=== PATIENT | male | born 1955 | race Caucasian/White ===

== ENCOUNTER 2024-07-10 09:51 | Inpatient (IN) | payer MEDICARE ==
--- NOTE | 2024-07-10 10:26 | ED ---
General Adult HPI - General Chief complaint: Chest Pain Stated complaint: Chest pain Time Seen by Provider: 07/10/24 10:00 Source: patient, RN notes reviewed, old records reviewed Mode of arrival: wheelchair Limitations: no limitations - History of Present Illness Initial comments: This is a 69-year-old male who presents to the emergency department with a past medical history significant for cardiac stents high blood pressure high cholesterol and strong family history. Patient states on Saturday he was having chest pain and again on took a nitroglycerin and went away but he stated he woke up this morning continued to have chest pain he went to his neck was mildly short of breath and he determined it is time to come to the hospital. Patient states now the chest pain is still there but very slight. Patient denies any difficulty breathing currently patient denies diaphoretic. Patient denies nausea or vomiting. Patient [place] any recent fever chills or cough. Patient continues to smoke. - Related Data Home Medications Medication Instructions Recorded Confirmed Aspirin EC [Ecotrin Low Dose] 81 mg PO DAILY 07/10/24 07/10/24 Atorvastatin [Lipitor] 40 mg PO DAILY 07/10/24 07/10/24 Enalapril [Vasotec] 5 mg PO BID 07/10/24 07/10/24 Furosemide [Lasix] 40 mg PO DAILY 07/10/24 07/10/24 Isosorbide Mononitrate ER [Imdur] 30 mg PO DAILY 07/10/24 07/10/24 Metoprolol Tartrate [Lopressor] 25 mg PO BID 07/10/24 07/10/24 Spironolactone [Aldactone] 25 mg PO DAILY 07/10/24 07/10/24 allopurinoL [Zyloprim] 100 mg PO DAILY PRN 07/10/24 07/10/24 Allergies Allergy/AdvReac Type Severity Reaction Status Date / Time No Known Allergies Allergy Verified 07/10/24 11:00 Review of Systems ROS Statement: Those systems with pertinent positive or pertinent negative responses have been documented in the HPI. ROS Other: All systems not noted in ROS Statement are negative. Past Medical History Past Medical History: Chest Pain / Angina, Myocardial Infarction (OK) Past Surgical History: Heart Catheterization With Stent Smoking Status: Current every day smoker Past Alcohol Use History: Heavy Past Drug Use History: None Reported General Exam - General Exam Comments Initial Comments: GENERAL: Patient is well-developed and well-nourished. Patient is nontoxic and well- hydrated and is in mild distress. ENT: Neck is soft and supple. No significant lymphadenopathy is noted. Oropharynx is clear. Moist mucous membranes. Neck has full range of motion without eliciting any pain. EYES: The sclera were anicteric and conjunctiva were pink and moist. Extraocular movements were intact and pupils were equal round and reactive to light. Eyelids were unremarkable. PULMONARY: Unlabored respirations. Good breath sounds bilaterally. No audible rales rhonchi or wheezing was noted. CARDIOVASCULAR: There is a regular rate and rhythm without any murmurs gallops or rubs. ABDOMEN: Soft and nontender with normal bowel sounds. SKIN: Skin is clear with no lesions or rashes and otherwise unremarkable. NEUROLOGIC: Patient is alert and oriented x3. Cranial nerves II through XII are grossly intact. Motor and sensory are also intact. Normal speech, volume and content. Symmetrical smile. MUSCULOSKELETAL: Normal extremities with adequate strength and full range of motion. LYMPHATICS: No significant lymphadenopathy is noted PSYCHIATRIC: Normal psychiatric evaluation. Limitations: no limitations Course Vital Signs 07/10/24 07/10/24 09:53 10:55 Temperature 97.5 F L Pulse Rate 84 80 Respiratory 20 20 Rate Blood Pressure 112/67 104/61 O2 Sat by Pulse 97 96 Oximetry Medical Decision Making - Medical Decision Making EKG is interpreted by myself read EKG shows a sinus rhythm at 83 bpm SD interval is 296 QRS is 170 QT intervals 475 QTc is 515. Patient's EKG shows no obvious ST segment elevation Was pt. sent in by a medical professional or institution (EDWIN Koo, SAND CUTTING MACHINE OPERATOR, urgent care, hospital, or fpc...) When possible be specific @ -No Did you speak to anyone other than the patient for history (EMS, parent, family, police, friend...)? What history was obtained from this source @ -No Did you review nursing and triage notes (agree or disagree)? Why? @ -I reviewed and agree with nursing and triage notes Were old charts reviewed (outside hosp., previous admission, EMS record, old EKG, old radiological studies, urgent care reports/EKG's, fpc records)? Report findings @ -No old charts were reviewed Differential Diagnosis? @ -Differential Chest Pain: Stable Angina, Unstable Angina, STEMI, NSTEMI Aortic Dissection, Pneumothorax, Musculoskeletal, Esophageal Spasm GERD, Cholecystitis, Pancreatitis, Zoster, this is not meant to be an all-inclusive list. EKG interpreted by me (3pts min.). @ -As above X-rays interpreted by me (1pt min.). @ -Chest x-ray shows no acute abnormality CT interpreted by me (1pt min.). @ -None done U/S interpreted by me (1pt. min.). @ -None done What testing was considered but not performed or refused? (CT, X-rays, U/S, labs)? Why? @ -None What meds were considered but not given or refused? Why? @ -None Did you discuss the management of the patient with other professionals (professionals i.e. , PA, SAND CUTTING MACHINE OPERATOR, lab, RT, psych nurse, social service agency director, bead machine operator, teacher, community service officer, case management coordinator)? Give summary @ -I spoke with Dr. Gates and he came down and saw the patient will take the patient to catheterization lab. I spoke with [facility] hospitalist and admitted the patient. I will write admitting orders Was smoking cessation discussed for >3mins.? @ -Yes Was critical care preformed (if so, how long)? @ -35 minutes Were there social determinants of health that impacted care today? How? (Homelessness, low income, unemployed, alcoholism, drug addiction, transportation, low edu. Level, literacy, decrease access to med. care, long-term, rehab)? @ -No Was there de-escalation of care discussed even if they declined (Discuss DNR or withdrawal of care, Hospice)? DNR status @ -No What co-morbidities impacted this encounter? (DM, HTN, Smoking, COPD, CAD, Cancer, CVA, ARF, Chemo, Hep., AIDS, mental health diagnosis, sleep apnea, morbid obesity)? @ -None Was patient admitted / discharged? Hospital course, mention meds given and route, prescriptions, significant lab abnormalities, going to OR and other pertinent info. @ -Patient was given aspirin Nitropaste in the emergency department. Patient had no pain after being here about an hour. Patient's troponin came back 10 psych consulted cardiology cardiology came down and saw him and determined it was time to take this patient to the catheterization lab. Heparin was started with the patient. Undiagnosed new problem with uncertain prognosis? @ -No Drug Therapy requiring intensive monitoring for toxicity (Heparin, Nitro, Insulin, Cardizem)? @ -No Were any procedures done? @ -No Diagnosis/symptom? @ -NSTEMI Acute, or Chronic, or Acute on Chronic? @ -Acute Uncomplicated (without systemic symptoms) or Complicated (systemic symptoms)? @ -Complicated Side effects of treatment? @ -No Exacerbation, Progression, or Severe Exacerbation? @ -No Poses a threat to life or bodily function? How? (Chest pain, [place], OK, pneumonia, PE, COPD, DKA, ARF, appy, cholecystitis, CVA, Diverticulitis, Homicidal, Suicidal, threat to staff... and all critical care pts) @ -This could lead to an OK and endorgan dysfunction - Lab Data Result diagrams: 07/10/24 10:25 07/10/24 10:25 Lab Results 07/10/24 07/10/24 07/10/24 Range/Units 10:25 10:25 10:25 WBC 12.6 H (3.8-10.6) k/uL RBC 4.42 (4.30-5.90) m/uL Hgb 14.7 (13.0-17.5) gm/dL Hct 42.9 (39.0-53.0) % MCV 97.1 (80.0-100.0) fL MCH 33.2 (25.0-35.0) pg MCHC 34.1 (31.0-37.0) g/dL RDW 12.9 (11.5-15.5) % Plt Count 239 (150-450) k/uL MPV 8.4 Neutrophils % 78 % Lymphocytes % 13 % Monocytes % 7 % Eosinophils % 1 % Basophils % 0 % Neutrophils # 9.9 H (1.3-7.7) k/uL Lymphocytes # 1.7 (1.0-4.8) k/uL Monocytes # 0.8 (0-1.0) k/uL Eosinophils # 0.1 (0-0.7) k/uL Basophils # 0.0 (0-0.2) k/uL PT 10.7 (10.0-12.5) sec INR 1.0 (<1.2) APTT 22.5 (22.0-30.0) sec Sodium 137 (137-145) mmol/L Potassium 4.6 (3.5-5.1) mmol/L Chloride 100 (98-107) mmol/L Carbon Dioxide 28 (22-30) mmol/L Anion Gap 9 mmol/L BUN 14 (9-20) mg/dL Creatinine 0.82 (0.66-1.25) mg/dL Est GFR (CKD-EPI)AfAm >90 (>60 ml/min/1.73 sqM) Est GFR (CKD-EPI)NonAf 89 (>60 ml/min/1.73 sqM) Glucose 117 H (74-99) mg/dL Calcium 9.6 (8.4-10.2) mg/dL Magnesium 1.8 (1.6-2.3) mg/dL Total Bilirubin 1.2 (0.2-1.3) mg/dL AST 60 H (17-59) U/L ALT 34 (4-49) U/L Alkaline Phosphatase 131 H (38-126) U/L Troponin I (0.000-0.034) ng/mL Total Protein 7.1 (6.3-8.2) g/dL Albumin 4.4 (3.5-5.0) g/dL 07/10/24 Range/Units 10:25 WBC (3.8-10.6) k/uL RBC (4.30-5.90) m/uL Hgb (13.0-17.5) gm/dL Hct (39.0-53.0) % MCV (80.0-100.0) fL MCH (25.0-35.0) pg MCHC (31.0-37.0) g/dL RDW (11.5-15.5) % Plt Count (150-450) k/uL MPV Neutrophils % % Lymphocytes % % Monocytes % % Eosinophils % % Basophils % % Neutrophils # (1.3-7.7) k/uL Lymphocytes # (1.0-4.8) k/uL Monocytes # (0-1.0) k/uL Eosinophils # (0-0.7) k/uL Basophils # (0-0.2) k/uL PT (10.0-12.5) sec INR (<1.2) APTT (22.0-30.0) sec Sodium (137-145) mmol/L Potassium (3.5-5.1) mmol/L Chloride (98-107) mmol/L Carbon Dioxide (22-30) mmol/L Anion Gap mmol/L BUN (9-20) mg/dL Creatinine (0.66-1.25) mg/dL Est GFR (CKD-EPI)AfAm (>60 ml/min/1.73 sqM) Est GFR (CKD-EPI)NonAf (>60 ml/min/1.73 sqM) Glucose (74-99) mg/dL Calcium (8.4-10.2) mg/dL Magnesium (1.6-2.3) mg/dL Total Bilirubin (0.2-1.3) mg/dL AST (17-59) U/L ALT (4-49) U/L Alkaline Phosphatase (38-126) U/L Troponin I 10.500 H* (0.000-0.034) ng/mL Total Protein (6.3-8.2) g/dL Albumin (3.5-5.0) g/dL Critical Care Time Critical Care Time: Yes Total Critical Care Time: 35 Disposition Clinical Impression: Acute non-ST elevation myocardial infarction (NSTEMI) Disposition: ADMITTED IP TO THIS HOSP Referrals: Silvia Jacobs MD [Primary Care Provider] - 1-2 days Time of Disposition: 11:51
[2024-07-10] MEDS: NITROGLYCERIN OINT 1 INCH/GM PACKET TOPICAL STA (10:29)
[2024-07-10] MEDS: ASPIRIN 81 MG PO STA (10:29)
[2024-07-10 10:51] LABS: Basophils % (A) 0 %; Eosinophils # (A) 0.1 k/uL (0-0.7); Eosinophils % (A) 1 %; HCT 42.9 % (39.0-53.0); HGB 14.7 gm/dL (13.0-17.5); Lymphocytes # (A) 1.7 k/uL (1.0-4.8); Lymphocytes % (A) 13 %; MCH 33.2 pg (25.0-35.0); MCHC 34.1 g/dL (31.0-37.0); MCV 97.1 fL (80.0-100.0); Mean Platelet Volume 8.4; Monocytes # (A) 0.8 k/uL (0-1.0); Monocytes % (A) 7 %; Neutrophils # (A) 9.9 k/uL (1.3-7.7); Neutrophils % (A) 78 %; Platelet Count 239 k/uL (150-450); RBC 4.42 m/uL (4.30-5.90); RDW 12.9 % (11.5-15.5); WBC 12.6 k/uL (3.8-10.6)
--- NOTE | 2024-07-10 10:52 | XR ---
EXAMINATION TYPE: XR chest 2V DATE OF EXAM: 07/10/2024 10:35 AM COMPARISON: 07/16/2012 CLINICAL INDICATION: Male, 69 years old with history of Chest Pain, , TECHNIQUE: PA and lateral views FINDINGS: The heart is mild to moderately enlarged. Mild interstitial prominence. No consolidation of pleural e ffusion. IMPRESSION: [id number] cardiomegaly and possible mild pulmonary vascular congestion. Otherwise, no acute pr ocess seen. [facility], , 07/10/2024 10:49 AM
[2024-07-10 10:58] LABS: ALT 34 U/L (4-49); AST 60 U/L (17-59); African American GFR (CKD) >90 (>60 ml/min/1.73 sqM); Albumin 4.4 g/dL (3.5-5.0); Alkaline Phosphatase 131 U/L (38-126); Anion Gap 9 mmol/L; Blood Urea Nitrogen 14 mg/dL (9-20); Calcium 9.6 mg/dL (8.4-10.2); Carbon Dioxide 28 mmol/L (22-30); Chloride 100 mmol/L (98-107); Glucose 117 mg/dL (74-99); Magnesium 1.8 mg/dL (1.6-2.3); Non-African American GFR(CKD) 89 (>60 ml/min/1.73 sqM); Potassium 4.6 mmol/L (3.5-5.1); Sodium 137 mmol/L (137-145); Total Bilirubin 1.2 mg/dL (0.2-1.3); Total Protein 7.1 g/dL (6.3-8.2)
[2024-07-10 10:59] LABS: Partial Thromboplastin Time 22.5 sec (22.0-30.0); Prothrombin Time 10.7 sec (10.0-12.5)
[2024-07-10] MEDS: HEPARIN SODIUM 1,000 UN/ML (10ML VL) IV ONE (11:35)
[2024-07-10] MEDS: HEPARIN SOD,PORK IN 0.45% NACL 25,000 UNIT in 0.45% NACL 1 250ML.BAG IV SCH (11:36)
[2024-07-10] MEDS ORDERED: ALPRAZolam 0.25 MG TAB PO PRN (11:43)
[2024-07-10] MEDS ORDERED: NITROGLYCERIN SL TABS 0.4 MG TAB SUBLINGUAL PRN ×3 (11:43→13:42)
[2024-07-10] MEDS ORDERED: ALPRAZolam 0.5 MG TAB PO PRN (11:43)
[2024-07-10] MEDS: ASPIRIN 325 MG TAB PO STA (11:45)
[2024-07-10] MEDS: ATORVASTATIN 80 MG TAB PO STA (11:46)
--- NOTE | 2024-07-10 11:53 | P.CRDCN ---
History of Present Illness History of present illness: HISTORY OF PRESENTING ILLNESS This is a pleasant 69-year-old with past medical history significant for hypertension, hyperlipidemia, tobacco abuse, alcohol use, CAD with prior PCI. He follows in the office with Dr. Patel. He actually just followed with Dr. Patel in the office on Saturday and was feeling fairly well. He went home from the office visit and later that night started to have some chest discomfort. Originally he thought it may be gas related and felt more like a pressure. It came and went and then was able to go sleep however on had recurrence and he did take nitroglycerin with improvement. He had been feeling somewhat better yesterday however this morning had recurrence and therefore came to emergency department. A nitroglycerin patch was placed and currently he states his pressure is about a 0.5 which is similar to what he always has. He d enies any significant shortness breath, diaphoresis or lightheadedness. Denies any recent fevers or chills. He states his last heart catheterization and PCI was approximately 13 years ago and prior to that 5-10 years. He is still smoking and has not been able to quit. EKG showing normal sinus rhythm with Q waves V1 and V2, right bundle branch morphology with borderline J-point elevation the 3 with biphasic T waves V3 V4 and T-wave inversions inferiorly. Blood work shows hemoglobin 14.7, white blood cell count 12.6, creatinine 0.8, AST 60, ALT 34, troponin 10.5. He has chronic LE edema however denies any worsening. REVIEW OF SYSTEMS At the time of my exam: CONSTITUTIONAL: Denies fever or chills. CARDIOVASCULAR: + chest pain, +chronic shortness of breath, no orthopnea, PND or palpitations. RESPIRATORY: Denies cough. GASTROINTESTINAL: Denies abdominal pain, diarrhea, constipation, nausea or vomiting. MUSCULOSKELETAL: Denies myalgias. NEUROLOGIC: Denies numbness, tingling or weakness. ENDOCRINE: Denies fatigue, weight change, polydipsia or polyurina. GENITOURINARY: Denies burning, hematuria or urgency with micturation. HEMATOLOGIC: Denies history of anemia or bleeding. PHYSICAL EXAMINATION Vital signs reviewed. CONSTITUTIONAL: No apparent distress. HEENT: Head is normocephalic. Pupils are equal, round. Sclerae anicteric. Mucous membranes of the mouth are moist. No JVD. No carotid bruit. CHEST EXAMINATION: Lungs are clear to auscultation. No chest wall tenderness is noted on palpation or with deep breathing. HEART EXAMINATION: Regular rate and rhythm. S1, S2 heard. No murmurs, gallops or rub. ABDOMEN: Soft, nontender. Positive bowel sounds. EXTREMITIES: 2+ peripheral pulses, 2+ lower extremity edema and no calf tenderness. NEUROLOGIC EXAMINATION: Patient is awake, alert and oriented x3. ASSESSMENT Non-STEMI likely type I mechanism CAD with prior history PCI remotely, last approximately 2011 Hypertension Hyperlipidemia Tobacco abuse Alcohol use PLAN Patient with new onset of unstable angina symptoms over last 3 days and troponin significantly elevated. Discussed definitive evaluation with heart catheterization. Patient unclear on his chest pain and states predominantly back to his normal self and no major angina currently however urgent heart cat heterization. Aspirin, heparin drip. Check 2-D echo. Tobacco cessation recommended. Further recommendations to follow. Past Medical History Past Medical History: Chest Pain / Angina, Myocardial Infarction (DC) Past Surgical History: Heart Catheterization With Stent Smoking Status: Current every day smoker Past Alcohol Use History: Heavy Past Drug Use History: None Reported Medications and Allergies Home Medications Medication Instructions Recorded Confirmed Type Aspirin EC [Ecotrin Low Dose] 81 mg PO DAILY 07/10/24 07/10/24 History Atorvastatin [Lipitor] 40 mg PO DAILY 07/10/24 07/10/24 History Enalapril [Vasotec] 5 mg PO BID 07/10/24 07/10/24 History Furosemide [Lasix] 40 mg PO DAILY 07/10/24 07/10/24 History Isosorbide Mononitrate ER [Imdur] 30 mg PO DAILY 07/10/24 07/10/24 History Metoprolol Tartrate [Lopressor] 25 mg PO BID 07/10/24 07/10/24 History Spironolactone [Aldactone] 25 mg PO DAILY 07/10/24 07/10/24 History allopurinoL [Zyloprim] 100 mg PO DAILY PRN 07/10/24 07/10/24 History Allergies Allergy/AdvReac Type Severity Reaction Status Date / Time No Known Allergies Allergy Verified 07/10/24 11:00 Physical Exam Vitals: Vital Signs Temp Pulse Resp BP Pulse Ox 07/10/24 11:47 79 20 111/54 96 07/10/24 10:55 80 20 104/61 96 07/10/24 09:53 97.5 F L 84 20 112/67 97 Intake and Output 07/09/24 07/10/24 07/10/24 22:59 06:59 14:59 Other: Weight 124.738 kg Results 07/10/24 10:25 07/10/24 10:25 Cardiac Enzymes 07/10/24 07/10/24 Range/Units 10:25 10:25 AST 60 H (17-59) U/L Troponin I 10.500 H* (0.000-0.034) ng/mL Coagulation 07/10/24 Range/Units 10:25 PT 10.7 (10.0-12.5) sec APTT 22.5 (22.0-30.0) sec CBC 07/10/24 Range/Units 10:25 WBC 12.6 H (3.8-10.6) k/uL RBC 4.42 (4.30-5.90) m/uL Hgb 14.7 (13.0-17.5) gm/dL Hct 42.9 (39.0-53.0) % Plt Count 239 (150-450) k/uL Comprehensive Metabolic Panel 07/10/24 Range/Units 10:25 Sodium 137 (137-145) mmol/L Potassium 4.6 (3.5-5.1) mmol/L Chloride 100 (98-107) mmol/L Carbon Dioxide 28 (22-30) mmol/L BUN 14 (9-20) mg/dL Creatinine 0.82 (0.66-1.25) mg/dL Glucose 117 H (74-99) mg/dL Calcium 9.6 (8.4-10.2) mg/dL AST 60 H (17-59) U/L ALT 34 (4-49) U/L Alkaline Phosphatase 131 H (38-126) U/L Total Protein 7.1 (6.3-8.2) g/dL Albumin 4.4 (3.5-5.0) g/dL Current Medications Generic Name Dose Route Start Last Admin Trade Name Freq PRN Reason Stop Dose Admin Alprazolam 0.25 mg 07/10/24 11:43 Alprazolam 0.25 Mg Tab PO Q6HR PRN Mild Anxiety Alprazolam 0.5 mg 07/10/24 11:43 Alprazolam 0.5 Mg Tab PO Q6HR PRN Moderate Anxiety Heparin Sodium/Sodium Chloride 250 mls @ 10 mls/hr 07/10/24 11:30 07/10/24 11:36 25,000 unit/ Sodium Chloride IV 8.0168 units/kg/hr .Q24H FABY 10 mls/hr Administration Protocol 8.0168 UNITS/KG/HR Heparin Sodium (Porcine) 10, 1,001 mls @ 999 mls/hr 07/11/24 07:00 000 unit/ Sodium Chloride IRRIGATION 07/11/24 23:00 ONCE PRN INTRA-OP Heparin Sodium (Porcine) 2,500 250.5 mls @ 250 mls/hr 07/11/24 07:00 unit/ Sodium Chloride IRRIGATION 07/11/24 23:00 ONCE PRN INTRA-OP Nitroglycerin 0.4 mg 07/10/24 11:43 Nitroglycerin Sl Tabs 0.4 Mg Tab SUBLINGUAL Q5M PRN Chest Pain Intake and Output 07/09/24 07/10/24 07/10/24 22:59 06:59 14:59 Other: Weight 124.738 kg Patient Weight 07/11/24 06:59 Weight 124.738 kg 07/10/24 10:25 07/10/24 10:25
[2024-07-10] MEDS: fentaNYL (PF) 50 MCG/ML 2 ML AMP IVP ONE (12:20)
[2024-07-10] MEDS: MIDAZOLAM 2 MG/2 ML VIAL IVP ONE ×2 (12:20→13:15)
[2024-07-10] MEDS: VERAPAMIL SYRINGE (5 MG/10 ML) INTRAARTER ONE (12:21)
[2024-07-10] MEDS: LIDOCAINE 1% INJ 10MG/ML (20 ML MDV) SQ ONE (12:21)
[2024-07-10] MEDS: HEPARIN SODIUM,PORCINE 10,000 UNIT in SODIUM CHLORIDE 0.9% 1,000 ML IRRIGATION ONE (12:27)
[2024-07-10] MEDS: HEPARIN SODIUM,PORCINE (1 ML) 2,500 UNIT in SODIUM CHLORIDE 0.9% 250 ML IRRIGATION ONE (12:27)
[2024-07-10] MEDS: IV FLUID CONTINUATION 950 ML IV ONE (12:27)
[2024-07-10] MEDS: HEPARIN SODIUM 1,000 UN/ML (10ML VL) IVP ONE ×4 (12:46→13:35)
[2024-07-10] MEDS: PRASUGREL 10 MG TAB PO ONE (13:02)
[2024-07-10] MEDS: IOPAMIDOL-370 100ML BTL INJ ONE (13:35)
[2024-07-10] MEDS ORDERED: ATROPINE SULFATE 0.1 MG/ML 10ML SYRINGE IV PRN (13:42)
[2024-07-10] MEDS ORDERED: MAG HYDROX/AL HYDROX/SIMETH 30 ML CUP PO PRN (13:42)
[2024-07-10] MEDS ORDERED: RX INFO: IV CONTRAST WAS GIVEN 1 EACH MISC MISCELLANE PRN (13:42)
[2024-07-10] MEDS ORDERED: ZOLPIDEM 5 MG TAB PO PRN (13:42)
[2024-07-10] MEDS ORDERED: allopurinoL 100 MG TAB PO PRN (13:44)
--- NOTE | 2024-07-10 13:49 | P.CARDCATH ---
Date of Procedure: 07/10/24 Description of Procedure: PERCUTANEOUS TRANSLUMINAL CORONARY ANGIOPLASTY CLINICAL INFORMATION: The patient is a 69-year-old male with a known history of hypertension, hyperlipidemia, chronic tobacco use and a history of CAD who presented with evidence of acute myocardial infarction, he underwent coronary a ngiography by Dr. Patel and was found to have acutely occluded proximal LAD with chronically occluded right coronary artery and borderline left main disease as well as obstructive disease in the left circumflex. Recommendations were made regarding angioplasty and stenting. The procedure as well as the risks and the complications were discussed with the patient who was in full understanding and agreement. PROCEDURE: A 6 [place] EBU 3.75 guiding catheter was introduced into the system. After cannulating the left main, a 0.014 BMW J wire was advanced across the lesion with the help of a Corsair microcatheter and positioned distally. The microcatheter was removed. Following that a 2.5 x 12 mm trek balloon was advanced and inflated at 8 atmosphere. Following that a [facility] eye IVUS catheter was introduced and images were obtained. Following that a 4.0 x 18 mm Xience molly point stent was deployed. It was dilated at 16 ole. Repeat IVUS imaging was performed. After removing the catheter a 4.0 x 12 mm NC trek balloon was advanced and 2 inflations at 10 ole were done. After the last inflation, after appropriate wait, the balloon and the guidewire were withdrawn back into the guiding catheter. Images were obtained and repeated. Those images reveal stable successful stenting. At that point, the guiding catheter, the balloon, and guidewire were removed. The sheath was removed. Hemostasis was obtained with deployment of a TR band. There were no immediate complications. The patient was returned to the room in stable condition. Of note, the patient received 8500 units of heparin as well as Effient. His ACT was followed. There was no immediate complications. He had no chest discomfort or EKG changes with the inflations RESULTS: Successful stenting of the proximal LAD with reduction of stenosis from 100% to 0% with IVUS imaging and ASTRID-3 flow at the end. RECOMMENDATIONS: Patient will continue on aspirin and Effient for 1 year without any interruption in addition to aggressive coronary risks modification, maintaining LDL below 70 mg/dL. He will be referred to [place] quit line for smoking cessation. He will be further evaluated regarding the need to undergo revascularization in view of his left main, left circumflex and RCA disease either by percutaneous revascularization of CABG. The findings and recommendations were discussed with the patient and the family, they are in full understanding and agreement. Duration of sedation: 35 minutes
--- NOTE | 2024-07-10 17:30 | CA ---
Transthoracic Echo Report Name: Tang Pichardo Age: 69 Gender: M : 1955 Exam Date: 07/10/2024 15:08 Exam Location: [place] [facility] Ht (in): 69 Wt (lb): 275 Ordering Physician: Rhett Gates DO ([email or web address]) Attending/Referring Phys: Greens Laborer Huma Brenner RDCS Procedure CPT: Indications: re: LV function Cardiac Hx: Technical Quality: Very technically difficult study Contrast 1: Definity Total Dose (mL): 1 Contrast 2: Total Dose (mL): MEASUREMENTS (Male / Female) Normal Values 2D ECHO LVOT Diameter 2.6 cm Aortic Root Diameter 3.7 cm LV Diastolic Volume MOD BP 229.4 cm??? 67 - 155 / 56 - 104 cm??? LV Systolic Volume MOD BP 144.8 cm??? 22 - 58 / 19 - 49 cm??? LV Ejection Fraction MOD BP 36.9 % >= 55 % LV Cardiac Index MOD BP 2649.2 cm???/min???m??? LV Diastolic Volume MOD 4C 229.8 cm??? LV Systolic Volume MOD 4C 132.7 cm??? LV Ejection Fraction MOD 4C 42.2 % LV Cardiac Index MOD 4C 3041.0 cm???/min???m??? LV Diastolic Length 4C 10.3 cm LV Systolic Length 4C 9.1 cm LV Diastolic Volume MOD 2C 229.9 cm??? LV Systolic Volume MOD 2C 154.7 cm??? LV Ejection Fraction MOD 2C 32.7 % LV Cardiac Index MOD 2C 2354.0 cm???/min???m??? LV Diastolic Length 2C 10.2 cm LV Systolic Length 2C 9.3 cm M-MODE LV Diastolic Diameter MM 7.5 cm 4.2 - 5.9 / 3.9 - 5.3 cm LV Systolic Diameter MM 6.4 cm LV Cardiac Index MM Teich 2692.5 cm???/min???m??? IVS Diastolic Thickness MM 1.3 cm 0.6 - 1.0 / 0.6 - 0.9 cm LVPW Diastolic Thickness MM 1.8 cm 0.6 - 1.0 / 0.6 - 0.9 cm LV Relative Wall Thickness MM 0.4 0.24 - 0.42 / 0.22 - 0.42 LV Mass Index MM 247.8 g/m??? 49 - 115 / 43 - 95 g/m??? DOPPLER AV Peak Velocity 156.4 cm/s AV Peak Gradient 9.8 mmHg AV Mean Velocity 108.0 cm/s AV Mean Gradient 5.3 mmHg AV Velocity Time Integral 27.4 cm LVOT Peak Velocity 115.7 cm/s LVOT Peak Gradient 5.4 mmHg LVOT Velocity Time Integral 21.2 cm LVOT Stroke Volume 112.6 cm??? LVOT Stroke Volume Index 47.6 ml/m??? LVOT Cardiac Index 3528.0 cm???/min???m??? AV Area Cont Eq vti 4.1 cm??? AV Area Cont Eq pk 3.9 cm??? MV Peak Velocity 190.8 cm/s MV Peak Gradient 14.6 mmHg MV Mean Velocity 96.0 cm/s MV Mean Gradient 5.1 mmHg MV Velocity Time Integral 31.5 cm FINDINGS Left Ventricle Left ventricular ejection fraction is estimated at 30-35 %. Mild concentric LVH Moderately dilated LV cavity. Severely reduced LV systolic function globally. Apical hypokinesia. No evidence of apical thrombus in contrast imaging Right Ventricle Right ventricle not well visualized. Unable to estimate the right ventricular systolic pressure. Right Atrium Right atrium not well visualized. Left Atrium Mild left atrial dilatation. Mitral Valve Calcified and thickened posterior mitral leaflet with restricted motion. Mild mitral stenosis. Mild mitral regurgitation Aortic Valve Trileaflet aortic valve. No aortic stenosis. Trace aortic regurgitation. Tricuspid Valve Tricuspid valve not well visualized. No tricuspid stenosis. No tricuspid regurgitation. Pulmonic Valve Pulmonic valve not well visualized. Pericardium No pericardial effusion. Aorta Aortic annulus normal. CONCLUSIONS Technically difficult study with limited views LVEF 30% Moderately dilated LV cavity, severely reduced global LV systolic function Apical hypokinesia Calcified mitral valve with mild mitral stenosis mild mitral regurgitation Previewed by: Dr Jason Huerta (Electronically Signed) Final Date: 10 July 2024 17:29
[2024-07-10] MEDS: METOPROLOL TARTRATE 25 MG TAB PO SCH (20:43)
[2024-07-10] MEDS: lisinopriL 5 MG TAB PO SCH (20:43)
[2024-07-10] MEDS: ATORVASTATIN 80 MG TAB PO SCH (20:44)
[2024-07-10] MEDS: SODIUM CHLORIDE 0.9% 1,000 ML in EMPTY BAG 1 BAG IV SCH (20:44)
--- NOTE | 2024-07-10 21:00 | CC ---
CARDIAC CATHETERIZATION REPORT INDICATION: Acute non ST-segment elevation KS. PROCEDURE NOTE: After obtaining informed consent, left heart catheterization and coronary angiogram were performed via the right radial artery using standard Ramsey catheters. The patient tolerated the procedure well without any obvious immediate complications. The patient received moderate conscious sedation. Total sedation time was 20 minutes. Right radial artery access was obtained using Seldinger technique, 6-Egyptian sheath was placed. Catheters and wires were floated into the ascending aorta under fluoroscopic guidance. The patient received verapamil and heparin per protocol. The patient received heparin in the ER and was on heparin drip with additional heparin was given in the label cutter. FINDINGS: 1. Hemodynamics: Left ventricular end-diastolic pressure is 22 mm. There is no significant gradient across the aortic valve. 2. Left ventriculogram: Left ventriculogram is not performed. 3. Angiographic data: a.Right coronary artery: Right coronary artery was previously stented, appears subtotally occluded in its midportion with [id number] and [id number] collaterals. b.Left main coronary artery appears calcified. There is 30% to 40% left main stenosis. It divides into left anterior descending coronary artery and circumflex coronary artery. LAD was previously stented and just past, the stent appears occluded. This seems to be the acute occlusion. Circumflex coronary artery bifurcates into AV groove circ and OM has a 70% stenosis. CONCLUSIONS: Three-vessel coronary artery disease with a chronically occluded right coronary artery, what appears like an acute occlusion distal to the stent of the LAD and chronic 70% to 80% stenosis involving circumflex coronary artery. PLAN: Angiographic data was reviewed by Dr. Torres. We will attempt angioplasty of the LAD and this goes well. We will bring him back and fix his circumflex coronary artery. I explained these issues at length with the patient. He understands and underwent with the plan. MMODL / IJN: [id number] /
[2024-07-10 22:01] LABS: LDL Cholesterol,Calculated 75.8 mg/dL (0.0-131.0); VLDL Calculation 14.26 mg/dL (5.00-40.00)
[2024-07-11] MEDS ORDERED: HEPARIN SODIUM,PORCINE 10,000 UNIT in SODIUM CHLORIDE 0.9% 1,000 ML IRRIGATION PRN (07:00)
[2024-07-11] MEDS ORDERED: HEPARIN SODIUM,PORCINE (1 ML) 2,500 UNIT in SODIUM CHLORIDE 0.9% 250 ML IRRIGATION PRN (07:00)
[2024-07-11 07:01] LABS: HCT 42.1 % (39.0-53.0); HGB 14.1 gm/dL (13.0-17.5); MCH 32.7 pg (25.0-35.0); MCHC 33.5 g/dL (31.0-37.0); MCV 97.6 fL (80.0-100.0); Mean Platelet Volume 8.3; Platelet Count 236 k/uL (150-450); RBC 4.31 m/uL (4.30-5.90); RDW 12.9 % (11.5-15.5); WBC 10.4 k/uL (3.8-10.6)
[2024-07-11 07:15] LABS: ALT 30 U/L (4-49); AST 54 U/L (17-59); African American GFR (CKD) >90 (>60 ml/min/1.73 sqM); Albumin 4.1 g/dL (3.5-5.0); Alkaline Phosphatase 119 U/L (38-126); Anion Gap 10 mmol/L; Blood Urea Nitrogen 11 mg/dL (9-20); Calcium 9.2 mg/dL (8.4-10.2); Carbon Dioxide 24 mmol/L (22-30); Chloride 103 mmol/L (98-107); Glucose 103 mg/dL (74-99); Non-African American GFR(CKD) >90 (>60 ml/min/1.73 sqM); Potassium 4.6 mmol/L (3.5-5.1); Sodium 137 mmol/L (137-145); Total Bilirubin 1.2 mg/dL (0.2-1.3); Total Protein 6.7 g/dL (6.3-8.2)
[2024-07-11] MEDS ORDERED: ASPIRIN 325 MG TAB PO SCH (09:00)
--- NOTE | 2024-07-11 09:07 | US ---
EXAMINATION TYPE: Pre-Operative Non-Invasive Evaluation of the hand for Potential Radial Artery Sapphire padgett, Measurements only DATE OF EXAM: 07/11/2024 7:26 AM CLINICAL INDICATION: Male, 69 years old with history of preop CABG;measurements only; preop, Preop- [facility] TECHNIQUE:Grayscale and color Doppler imaging of the radial artery(s) SIDE PERFORMED: left FINDINGS: Dominant hand: right Duplex Findings: Radial Artery: Color flow seen Measurements in mm, transverse view: Left Radial: mm Proximal: 4.5 x 4.4 mm, could not get true prox due to the IV Mid: 4.6 x 3.4 mm Distal: 3.4 x 3.1 mm IMPRESSION: 1. No evidence for vascular occlusion. 2. Measurements as described above. [facility], , 07/11/2024 9:05 AM
--- NOTE | 2024-07-11 09:08 | US ---
EXAMINATION TYPE: US vein mapping BILAT DATE OF EXAM: 07/11/2024 7:26 AM COMPARISON: NONE CLINICAL INDICATION: Male, 69 years old with history of preop CABG; preop, Preop- Cardiac Surgery TECHNIQUE: Grayscale and color Doppler imaging of the lower extremity venous system. SIDE PERFORMED: Bilateral FINDINGS: DUPLEX FINDINGS: Greater Saphenous: Color flow seen Measurements in mm: Right Greater Saphenous: Groin: 5.9 x 5.2mm High Thigh: 7.0 x 5.9 mm Mid Thigh: 5.1 x 4.4 mm Above Knee: 4.6 x 3.7 mm Knee: 4.3 x 3.4 mm Below Knee: 3.1 x 2.1 mm Mid Calf: 2.7 x 2.0 mm At Ankle: 2.3 x 1.8 mm Left Greater Saphenous: Groin: 8.0 x 5.6 mm High Thigh: 7.4 x 5.3 mm Mid Thigh: 7.8 x 6.7 mm Above Knee: 6.9 x 3.9 mm Knee: 4.2 x 4.5 mm Below Knee: 4.4 x 3.3 mm Mid Calf: 4.6 x 3.2 mm At Ankle: 4.7 x 3.7 mm IMPRESSION: 1. No evidence for occlusion. 2. GSV measurements listed above. 3. Performing surgeon to determine viability as conduit. [facility], , 07/11/2024 9:05 AM
[2024-07-11 09:29] LABS: T4, Free (Free Thyroxine) 0.97 ng/dL (0.78-2.19)
[2024-07-11] MEDS: SPIRONOLACTONE 25 MG TAB PO SCH (09:41)
[2024-07-11] MEDS: PRASUGREL 10 MG TAB PO SCH (09:41)
[2024-07-11] MEDS: ASPIRIN 81 MG PO SCH (09:41)
--- NOTE | 2024-07-11 10:27 | P.GSCN ---
History of Present Illness Consult date: 07/11/24 Reason for Consult: Triple-vessel coronary artery disease, residual left main disease Requesting physician: Rhett Gates History of present illness: This is a 69-year-old gentleman who follows outpatient with Dr. Jacobs for primary care and Dr. Patel for cardiology. He has a previous medical history of coronary artery disease with previous PCI, hypertension, hyperlipidemia, chronic heavy tobacco dependence, chronic EtOH use, and morbid obesity. Apparently he was seen by Dr. Patel on Saturday and was doing well. That night at home he started to have chest discomfort intermittently. He was able to sleep that night, however on he continued to have intermittent chest discomfort which was relieved with sublingual nitro. Unfortunately yesterday morning he continued to have recurrence of chest discomfort and reported to [facility] emergency room for evaluation and treatment. He denied any other symptomatology including no shortness of breath, diaphoresis, nausea, lightheadedness/dizziness. EKG in the emergency room demonstrated sinus rhythm with right bundle branch block and inverted T waves inferiorly. Chest x-ray demonstrated mild to moderate cardiomegaly and mild pulmonary vascular congestion. Lab work revealed WBC 12.6, hemoglobin 14.7, INR 1.0, creatinine 0.82, and first troponin was elevated at 10.5. He was ruled in for non-STEMI and recommended to undergo heart catheterization which was completed yesterday by Dr. Patel revealing acute occlusion of the LAD just past the previous stent, OM branch of the circumflex coronary artery with 70% stenosis, chronic total occlusion in the mid RCA with left to right and right to right collaterals, and left main stenosis 30 to 40%. Due to this acute finding a stent was placed to the proximal LAD by Dr. Torres with reduction of stenosis from 100% to 0%. Due to triple-vessel coronary artery disease and residual left main disease consultation was placed to cardiothoracic surgery for recommendations regarding surgical revascularization versus further PCI. Of note transthoracic echocardiogram was completed revealing reduced left ventricular systolic function with EF 30 to 35%, mild concentric LVH, mild mitral and trace aortic regurgitation. Review of Systems Review of systems was completed and was negative except as noted - Cardiovascular Reports as per HPI, Reports chest pain Past Medical History Past Medical History: Coronary Artery Disease (CAD), Chest Pain / Angina, Hyperlipidemia, Hypertension, Myocardial Infarction ([place]) Last Myocardial Infarction Date:: 07/10/2024 History of Any Multi-Drug Resistant Organisms: None Reported Past Surgical History: Heart Catheterization With Stent Date of Last Stent Placement:: 07/10/2024 Past Psychological History: No Psychological Hx Reported Smoking Status: Current every day smoker Past Alcohol Use History: Heavy Past Drug Use History: None Reported Medications and Allergies Home Medications Medication Instructions Recorded Confirmed Type Aspirin EC [Ecotrin Low Dose] 81 mg PO DAILY 07/10/24 07/10/24 History Atorvastatin [Lipitor] 40 mg PO DAILY 07/10/24 07/10/24 History Enalapril [Vasotec] 5 mg PO BID 07/10/24 07/10/24 History Furosemide [Lasix] 40 mg PO DAILY 07/10/24 07/10/24 History Isosorbide Mononitrate ER [Imdur] 30 mg PO DAILY 07/10/24 07/10/24 History Metoprolol Tartrate [Lopressor] 25 mg PO BID 07/10/24 07/10/24 History Spironolactone [Aldactone] 25 mg PO DAILY 07/10/24 07/10/24 History allopurinoL [Zyloprim] 100 mg PO DAILY PRN 07/10/24 07/10/24 History Allergies Allergy/AdvReac Type Severity Reaction Status Date / Time No Known Allergies Allergy Verified 07/10/24 11:00 Surgical - Exam Vital Signs Temp Pulse Resp BP Pulse Ox 97.5 F L 84 20 112/67 97 07/10/24 09:53 07/10/24 09:53 07/10/24 09:53 07/10/24 09:53 07/10/24 09:53 CONSTITUTIONAL: Awake and alert, appears comfortable, cooperative, well- developed, well-nourished, no pain, no acute distress EYES: Pupils equal, round, reactive to light, normal ocular movement ENT: Moist mucous membranes without oral lesions present NECK: No masses, no bruits, trachea midline RESPIRATORY: Lungs sounds diminished in the bases bilaterally. Respirations even, nonlabored. Currently on room air with oxygen saturation 95%. Strong cough. No chest wall deformities. No clubbing or cyanosis present CARDIOVASCULAR: S1, S2 present. Regular rate and rhythm, sinus rhythm on telemetry. Palpable peripheral pulses bilaterally. Bilateral lower extremity edema present. No calf pain or tenderness noted GASTROINTESTINAL: Abdomen soft, nontender, nondistended without masses or organomegaly noted. There is no rebound or guarding present. Active bowel sounds present 4 quadrants. GENITOURINARY: Deferred INTEGUMENTARY: Skin is warm and dry NEUROLOGIC: Cranial nerves II through XII intact, normal coordination, no obvious motor or sensory deficits, speech is normal MUSKULOSKELETAL: Able to move all extremities, strength equal bilaterally, normal posture PSYCHIATRIC: Alert and oriented to person place and time, appropriate affect, intact judgment and insight CLINICAL FRAILTY SCORE 3 Results - Labs 07/11/24 05:15 07/11/24 05:15 Abnormal Lab Results - Last 24 Hours (Table) 07/10/24 07/10/24 07/10/24 Range/Units 10: 10: 10: WBC 12.6 H (3.8-10.6) k/uL Neutrophils # 9.9 H (1.3-7.7) k/uL Glucose 117 H (74-99) mg/dL AST 60 H (17-59) U/L Alkaline Phosphatase 131 H (38-126) U/L Troponin I 10.500 H* (0.000-0.034) ng/mL TSH (0.465-4.680) mIU/L 07/10/24 07/10/24 07/11/24 Range/Units 14:50 18:09 05:15 WBC (3.8-10.6) k/uL Neutrophils # (1.3-7.7) k/uL Glucose 103 H (74-99) mg/dL AST (17-59) U/L Alkaline Phosphatase (38-126) U/L Troponin I 14.100 H* 19.800 H* (0.000-0.034) ng/mL TSH 5.390 H (0.465-4.680) mIU/L Diabetes panel 07/10/24 07/10/24 07/11/24 Range/Units 10:25 14:50 05:15 Sodium 137 (137-145) mmol/L Potassium 4.6 (3.5-5.1) mmol/L Chloride 100 (98-107) mmol/L Carbon Dioxide 28 (22-30) mmol/L BUN 14 (9-20) mg/dL Creatinine 0.82 (0.66-1.25) mg/dL Glucose 117 H (74-99) mg/dL Hemoglobin A1c 5.7 (<=6.0) % Calcium 9.6 (8.4-10.2) mg/dL AST 60 H (17-59) U/L ALT 34 (4-49) U/L Alkaline Phosphatase 131 H (38-126) U/L Total Protein 7.1 (6.3-8.2) g/dL Albumin 4.4 (3.5-5.0) g/dL Triglycerides 71.30 (0.00-149.00) mg/dL HDL Cholesterol 42.90 (40.00-60.00) mg/dL 07/11/24 Range/Units 05:15 Sodium 137 (137-145) mmol/L Potassium 4.6 (3.5-5.1) mmol/L Chloride 103 (98-107) mmol/L Carbon Dioxide 24 (22-30) mmol/L BUN 11 (9-20) mg/dL Creatinine 0.68 (0.66-1.25) mg/dL Glucose 103 H (74-99) mg/dL Hemoglobin A1c (<=6.0) % Calcium 9.2 (8.4-10.2) mg/dL AST 54 (17-59) U/L ALT 30 (4-49) U/L Alkaline Phosphatase 119 (38-126) U/L Total Protein 6.7 (6.3-8.2) g/dL Albumin 4.1 (3.5-5.0) g/dL Triglycerides (0.00-149.00) mg/dL HDL Cholesterol (40.00-60.00) mg/dL Thyroid panel 07/11/24 Range/Units 05:15 TSH 5.390 H (0.465-4.680) mIU/L Calcium panel 07/10/24 07/11/24 Range/Units 10:25 05:15 Calcium 9.6 9.2 (8.4-10.2) mg/dL Albumin 4.4 4.1 (3.5-5.0) g/dL Pituitary panel 07/10/24 07/11/24 Range/Units 10:25 05:15 Sodium 137 137 (137-145) mmol/L Potassium 4.6 4.6 (3.5-5.1) mmol/L Chloride 100 103 (98-107) mmol/L Carbon Dioxide 28 24 (22-30) mmol/L BUN 14 11 (9-20) mg/dL Creatinine 0.82 0.68 (0.66-1.25) mg/dL Glucose 117 H 103 H (74-99) mg/dL Calcium 9.6 9.2 (8.4-10.2) mg/dL TSH 5.390 H (0.465-4.680) mIU/L Adrenal panel 07/10/24 07/11/24 Range/Units 10:25 05:15 Sodium 137 137 (137-145) mmol/L Potassium 4.6 4.6 (3.5-5.1) mmol/L Chloride 100 103 (98-107) mmol/L Carbon Dioxide 28 24 (22-30) mmol/L BUN 14 11 (9-20) mg/dL Creatinine 0.82 0.68 (0.66-1.25) mg/dL Glucose 117 H 103 H (74-99) mg/dL Calcium 9.6 9.2 (8.4-10.2) mg/dL Total Bilirubin 1.2 1.2 (0.2-1.3) mg/dL AST 60 H 54 (17-59) U/L ALT 34 30 (4-49) U/L Alkaline Phosphatase 131 H 119 (38-126) U/L Total Protein 7.1 6.7 (6.3-8.2) g/dL Albumin 4.4 4.1 (3.5-5.0) g/dL - Imaging Chest x-ray: report reviewed, image reviewed CT scan - chest: image reviewed EKG: image reviewed Additional studies: Heart catheterization films reviewed with Dr. Jack Assessment and Plan Assessment: Coronary artery disease, non-STEMI this admission Cardiomyopathy, EF 30 to 35% History of coronary artery disease with previous PCI to the LAD and RCA Hypertension Hyperlipidemia, treated, cholesterol 133, LDL 76 Chronic heavy tobacco dependence Chronic EtOH use Morbid obesity Plan: The patient was seen and examined at the bedside yesterday with family present, and again this morning sitting up in a recliner on the cardiac stepdown unit in no acute distress. Patient currently denies any chest pain/discomfort/pressure, denies any shortness of breath or any other symptomatology. The usual perioperative course of open-heart surgery was discussed in detail with the patient and his family, risks and benefits were reviewed, all questions were answered. Heart catheterization films were reviewed with Dr. Jack from cardiothoracic surgery who will see the patient and discuss our recommendations. Continue to maximize medical therapy with aspirin, Effient, statin, beta- lawrence, IRWIN inhibitor, Aldactone. Patient was counseled regarding complete smoking cessation. Increase activity as tolerated. Medical management of other comorbidities per internal medicine, cardiology. More recommendations to follow. Thank you Dr. Gates for this consult. We will continue to follow along with you and make further recommendations as appropriate. I have personally seen and examined the patient, performed the documentation and the assessment and plan as written. Number of minutes spent on the visit: 30. ION Cast
--- NOTE | 2024-07-11 10:56 | CT ---
EXAMINATION TYPE: CT chest wo con DATE OF EXAM: 07/11/2024 8:55 AM COMPARISON: None. CLINICAL INDICATION: Male, 69 years old with history of eval aorta for clamp ability, PRE OP CHEST PA IN TECHNIQUE: Axial images were obtained at 5 mm thick sections. Reconstructed images are reviewed on [employer] computer in the coronal plane. Contrast used: mL of , (none if empty) Oral contrast used: (none if empty) CT DLP: 758.3 mGycm, Automated exposure control for dose reduction was used. FINDINGS: Portion of the thyroid visualized is normal. There is a 0.8 cm low density nodule peripheral anterior lateral right apex. Series 205 image 13. There is a 1.2 cm in the pretracheal space. No enlarged lymph nodes in the retrocrural region measuri ng 1.8 cm. Normal less than 0.5 cm. The ascending aorta diameter at the level of the main pulmonary artery is 3.6 cm. The main pulmonary artery diameter at the bifurcation is 3.3 cm. Coronary artery c alcifications present. Limited CT sections are obtained through the upper abdomen. Hepatomegaly is not excluded IMPRESSION: 1. Small nodule anterior lateral right apex. Follow-up study in 6 months recommended. 2. Enlarged lymphadenopathy pretracheal space and subcarinal region. 3. Vascular calcification is within the ascending and descending thoracic aorta and aortic arch. [facility], , 07/11/2024 10:53 AM
[2024-07-11 11:22] VITALS: BMI 40.6
[2024-07-11] MEDS: DAPAGLIFLOZIN PROPANEDIOL 10 MG TABLET PO SCH (12:41)
--- NOTE | 2024-07-11 13:37 | P.HPIM ---
History of Present Illness H&P Date: 07/11/24 Chief Complaint: Chest pain Patient is a 69 year old male with past medical history of myocardial infarction with stent placement, extensive family history of coronary artery disease who presented to the ED with chest pain. Patient mentions On Saturday he first experienced left-sided chest pain with radiation to the left jaw and pain was a 5/10 severity. He initially thought that this was due to gas. He noticed an improvement in his pain on . On Saturday, he had a recurrence of the pain, which is when he took Nitroglycerin and that helped with his symptoms. This prompted him to present to the ER for an evaluation. He states having similar pain in the past and has undergone PCI twice, in 2012 and 5-10 year prior to that. He also has an extensive family history of coronary artery disease. He is still smoking everyday and is also drinking alcohol everyday. Denies fever, chills, shortness of breath, cough, palpitations, abdominal pain, nausea, vomiting, hematuria, dysuria, hematochezia, melena, headache, slurred speech, numbness, tingling, dizziness, lightheadedness. ED documentation reviewed. In the ED patient was treated with aspirin 324 mg, heparin drip, nitroglycerin ointment. Vitals on admission T 97.5 F, OR 84 bpm, RR 20, BP 112/67, oxygen saturation 97% on room air EKG independently interpreted as sinus rhythm, with T wave inversions in leads II, 3, aVF, V36, right bundle branch block, rate 74 bpm, QTc 488 ms Chest x-ray shows mild to moderate cardiomegaly and possible mild pulmonary vascular congestion, no acute process seen Labs on admission show WBC 12.6, INR 1.0, sodium 137, creatinine 0.82, AST 16, ALP 131, TSH 5.39, T4 0.97 Troponin I 10.5, 14.1, 19.8 Lipid panel shows triglycerides 71.3, cholesterol 133, LDL 75.8, VLDL 14.26, HDL 42.9 Lower extremity ultrasound shows no evidence for occlusion Upper extremity ultrasound shows no evidence of vascular occlusion Chest CT shows small nodule anterior lateral right apex, enlarged lymphadenopathy pretracheal space and subcarinal region, vascular calcification is within the ascending and descending thoracic aorta and aortic arch Review of systems: Pertinent positives and negatives as discussed in HPI, a complete review of systems was performed and all other systems are negative. Social history: Tobacco: Current everyday smoker Alcohol: Daily Recreational drugs: Denies use Travel: No recent travel history Sick contacts: None Physical examination: Vital signs reviewed General: nontoxic, no distress, appears at stated age Derm: warm, dry, intact Head: atraumatic, normocephalic, symmetric Eyes: EOMI, anicteric sclera Mouth: no lip lesion, mucus membranes moist Cardiovascular: S1 S2 reg, no murmur Lungs: CTA bilateral, no rhonchi, no rales, no accessory muscle use Abdominal: soft, non-tender to palpation Extremities: venous stasis dermatitis, 2+ edema b/l LE Neuro: Alert, Oriented, Gross neurological examination did not reveal any focal deficits. Psych: well appearing, appropriate affect Assessment/Plan: Patient is a 69 year old male with past medical history of myocardial infarction with stent placement, extensive family history of coronary artery disease who presented to the ED with chest pain. He underwent cardiac catheterization and stenting of the proximal LAD. He was found to have triple vessel disease and residual left main disease, cardiothoracic surgery was consulted. Active: #. NSTEMI, likely type I, S/p stenting to the proximal LAD 07/10/24 #. CAD with prior PCI #. Congestive heart failure, EF 30%( 07/10/24) Echocardiogram on 03/10/2025 shows EF 30 to 35%, moderately dilated LV cavity, severely reduced global LV systolic function, apical hypokinesia, calcified mitral valve with mild MS, mild MR Chest CT shows small nodule anterior lateral right apex, enlarged lymphadenopathy pretracheal space and subcarinal region, vascular calcification is within the ascending and descending thoracic aorta and aortic arch Continue prasugrel 10 mg p.o. daily, aspirin 80 mg p.o. daily, atorvastatin 80 mg p.o. at bedtime, metoprolol 25 mg p.o. twice daily, dapagliflozin 10 mg p.o. daily, lisinopril 5 mg p.o. twice daily, Continue telemetry monitoring Cardiology following, Aspirin and Effient for 12 months and maintain LDL <70, refer to [place] quit line for smoking cessation Cardiothoracic surgery following #. Sick euthyroid TSH 5.39, T4 0.97 Repeat labs on outpatient basis Chronic: #. Hypertension #. Hyperlipidemia #. Gout #. Nicotine dependence #. Alcohol use Continue allopurinol 100 mg p.o. daily as needed, spironolactone 25 mg p.o. daily F: None E: Replete as required N: Heart healthy diet DVT prophylaxis: Heparin GI prophylaxis: Pantoprazole 40 mg PO daily The patient is admitted with an anticipated more than 2 midnight stay for evaluation of chest pain CODE STATUS: FULL CODE Discussed with: Patient Anticipated discharge place: Home Past Medical History Past Medical History: Chest Pain / Angina, Myocardial Infarction ([place]) Last Myocardial Infarction Date:: 07/10/2024 History of Any Multi-Drug Resistant Organisms: None Reported Past Surgical History: Heart Catheterization With Stent Date of Last Stent Placement:: 07/10/2024 Smoking Status: Current every day smoker Past Alcohol Use History: Heavy Past Drug Use History: None Reported Medications and Allergies Home Medications Medication Instructions Recorded Confirmed Type Aspirin EC [Ecotrin Low Dose] 81 mg PO DAILY 07/10/24 07/10/24 History Atorvastatin [Lipitor] 40 mg PO DAILY 07/10/24 07/10/24 History Enalapril [Vasotec] 5 mg PO BID 07/10/24 07/10/24 History Furosemide [Lasix] 40 mg PO DAILY 07/10/24 07/10/24 History Isosorbide Mononitrate ER [Imdur] 30 mg PO DAILY 07/10/24 07/10/24 History Metoprolol Tartrate [Lopressor] 25 mg PO BID 07/10/24 07/10/24 History Spironolactone [Aldactone] 25 mg PO DAILY 07/10/24 07/10/24 History allopurinoL [Zyloprim] 100 mg PO DAILY PRN 07/10/24 07/10/24 History Allergies Allergy/AdvReac Type Severity Reaction Status Date / Time No Known Allergies Allergy Verified 07/10/24 11:00 Physical Exam Vitals: Vital Signs Temp Pulse Pulse Pulse Resp BP BP 07/11/24 04:41 98.1 F 78 17 103/57 07/10/24 23:30 72 16 115/66 07/10/24 20:39 97.7 F 85 17 108/68 07/10/24 17:18 86 16 101/59 07/10/24 15:18 16 133/73 07/10/24 14:48 71 16 116/66 07/10/24 14:12 78 16 126/67 07/10/24 13:57 64 16 140/70 07/10/24 11:47 79 20 111/54 07/10/24 10:55 80 20 104/61 07/10/24 09:53 97.5 F L 84 20 112/67 Pulse Ox 07/11/24 04:41 94 L 07/10/24 23:30 96 07/10/24 20:39 98 07/10/24 17:18 97 07/10/24 15:18 95 07/10/24 14:48 97 07/10/24 14:12 96 07/10/24 13:57 96 07/10/24 11:47 96 07/10/24 10:55 96 07/10/24 09:53 97 Intake and Output 07/10/24 07/11/24 07/11/24 22:59 06:59 14:59 Output Total 2 1 Balance -2 -1 Output: Urine 2 1 Other: Voiding Method Toilet Toilet Weight 124.738 kg Results CBC & Chem 7: 07/11/24 05:15 07/11/24 05:15 Labs: Abnormal Lab Results - Last 24 Hours (Table) 07/10/24 07/10/24 07/10/24 Range/Units 10:25 10:25 10:25 WBC 12.6 H (3.8-10.6) k/uL Neutrophils # 9.9 H (1.3-7.7) k/uL Glucose 117 H (74-99) mg/dL AST 60 H (17-59) U/L Alkaline Phosphatase 131 H (38-126) U/L Troponin I 10.500 H* (0.000-0.034) ng/mL TSH (0.465-4.680) mIU/L 07/10/24 07/10/24 07/11/24 Range/Units 14:50 18:09 05:15 WBC (3.8-10.6) k/uL Neutrophils # (1.3-7.7) k/uL Glucose 103 H (74-99) mg/dL AST (17-59) U/L Alkaline Phosphatase (38-126) U/L Troponin I 14.100 H* 19.800 H* (0.000-0.034) ng/mL TSH 5.390 H (0.465-4.680) mIU/L
--- NOTE | 2024-07-11 15:20 | P.PN ---
Subjective Progress Note Date: 07/11/24 HISTORY OF PRESENTING ILLNESS This is a pleasant 69-year-old with past medical history significant for hyp ertension, hyperlipidemia, tobacco abuse, alcohol use, CAD with prior PCI. He follows in the office with Dr. Patel. He actually just followed with Dr. Patel in the office on Saturday and was feeling fairly well. He went home from the office visit and later that night started to have some chest discomfort. Originally he thought it may be gas related and felt more like a pressure. It came and went and then was able to go sleep however on had recurrence and he did take nitroglycerin with improvement. He had been feeling somewhat better yesterday however this morning had recurrence and therefore came to emergency department. A nitroglycerin patch was placed and currently he states his pressure is about a 0.5 which is similar to what he always has. He denies any significant shortness breath, diaphoresis or lightheadedness. Denies any recent fevers or chills. He states his last heart catheterization and PCI was approximately 13 years ago and prior to that 5-10 years. He is still smoking and has not been able to quit. EKG showing normal sinus rhythm with Q waves V1 and V2, right bundle branch morphology with borderline J-point elevation the 3 with biphasic T waves V3 V4 and T-wave inversions inferiorly. Blood work shows hemoglobin 14.7, white blood cell count 12.6, creatinine 0.8, AST 60, ALT 34, troponin 10.5. He has chronic LE edema however denies any worsening. Left heart cath 07/10/2024 showed left main 30-40% stenosis, LAD stent occlusion, OM 70% stenosis, he underwent PCI of the LAD and was referred for CABG eval. Echocardiogram shows EF 30-35%, mild mitral stenosis. 07/11/24 Patient denies any chest pain or shortness of breath. He is feeling better and back to his baseline. He wants to go home. LDL 75. He did have 16 beat run of VT on telemetry. PHYSICAL EXAMINATION Vital signs reviewed. CONSTITUTIONAL: No apparent distress. HEENT: Head is normocephalic. Pupils are equal, round. Sclerae anicteric. Mucous membranes of the mouth are moist. No JVD. No carotid bruit. CHEST EXAMINATION: Lungs are clear to auscultation. No chest wall tenderness is noted on palpation or with deep breathing. HEART EXAMINATION: Regular rate and rhythm. S1, S2 heard. No murmurs, gallops or rub. ABDOMEN: Soft, nontender. Positive bowel sounds. EXTREMITIES: 2+ peripheral pulses, 2+ lower extremity edema and no calf tenderness. Right radial site with no redness swelling or drainage. NEUROLOGIC EXAMINATION: Patient is awake, alert and oriented x3. ASSESSMENT Non-STEMI likely type I mechanism CAD with prior history PCI remotely, last approximately 2011; s/p PCI LAD Hypertension Hyperlipidemia Tobacco abuse Alcohol use PLAN He has been referred to cardiothoracic surgery for CABG eval and workup is in process. Recommends LifeVest and patient is agreeable to this. Will monitor overnight. Consider adding Jardiance. He will complete workup as an outpatient. Continue with dual antiplatelet therapy. Continue high intensity statin. Further recommendations pending clinical course. Objective - Vital Signs Vital signs: Vital Signs Temp 98.1 F 07/11/24 04:41 Pulse 78 07/11/24 04:41 Resp 17 07/11/24 04:41 BP 103/57 07/11/24 04:41 Pulse Ox 94 L 07/11/24 04:41 FiO2 Intake & Output 07/10/24 07/11/24 07/11/24 18:59 06:59 18:59 Intake Total 150 Output Total 3 Balance 150 -3 Weight 124.738 kg Intake: IV 150 Output: Urine 3 Other: Voiding Method Toilet # Voids 1 - Labs CBC & Chem 7: 07/11/24 05:15 07/11/24 05:15 Labs: Abnormal Lab Results - Last 24 Hours (Table) 07/10/24 07/10/24 07/10/24 Range/Units 10:25 10:25 10:25 WBC 12.6 H (3.8-10.6) k/uL Neutrophils # 9.9 H (1.3-7.7) k/uL Glucose 117 H (74-99) mg/dL AST 60 H (17-59) U/L Alkaline Phosphatase 131 H (38-126) U/L Troponin I 10.500 H* (0.000-0.034) ng/mL TSH (0.465-4.680) mIU/L 07/10/24 07/10/24 07/11/24 Range/Units 14:50 18:09 05:15 WBC (3.8-10.6) k/uL Neutrophils # (1.3-7.7) k/uL Glucose 103 H (74-99) mg/dL AST (17-59) U/L Alkaline Phosphatase (38-126) U/L Troponin I 14.100 H* 19.800 H* (0.000-0.034) ng/mL TSH 5.390 H (0.465-4.680) mIU/L
[2024-07-11 15:47] LABS: Hepatitis A Antibody IgM Nonreactive (Nonreactive); Hepatitis B Core IgM Nonreactive (Nonreactive); Hepatitis B Surface Antigen Nonreactive (Nonreactive); Hepatitis C IgG Antibody Nonreactive (Nonreactive)
[2024-07-11 16:41] LABS: LDL Cholesterol,Calculated 65.7 mg/dL (0.0-131.0)
[2024-07-12 05:57] VITALS: RESP 16
[2024-07-12 06:38] LABS: HCT 42.7 % (39.0-53.0); HGB 14.3 gm/dL (13.0-17.5); MCH 33.1 pg (25.0-35.0); MCHC 33.6 g/dL (31.0-37.0); MCV 98.5 fL (80.0-100.0); Platelet Count 235 k/uL (150-450); RBC 4.33 m/uL (4.30-5.90); WBC 10.2 k/uL (3.8-10.6)
[2024-07-12 06:55] LABS: African American GFR (CKD) >90 (>60 ml/min/1.73 sqM); Anion Gap 10 mmol/L; Blood Urea Nitrogen 18 mg/dL (9-20); Carbon Dioxide 25 mmol/L (22-30); Chloride 102 mmol/L (98-107); Glucose 109 mg/dL (74-99); Non-African American GFR(CKD) 88 (>60 ml/min/1.73 sqM); Potassium 4.2 mmol/L (3.5-5.1); Sodium 137 mmol/L (137-145)
--- NOTE | 2024-07-12 08:19 | P.PN ---
Subjective Progress Note Date: 07/12/24 Principal diagnosis: Coronary artery disease, non-STEMI this admission, cardiomyopathy, EF 30 to 35%. History of coronary artery disease with previous PCI to the LAD and RCA, hype rtension, hyperlipidemia, chronic heavy tobacco dependence, chronic EtOH use, morbid obesity The patient was seen and examined this morning sitting up in a recliner on the cardiac stepdown unit in no acute distress. He denies any chest pain or shortness of breath. This gentleman is adamant he is going home today and would like to leave this morning. He is not sure he will stay long enough to meet with the cardiothoracic surgeon but is willing to follow-up outpatient. He does understand he needs to wait for his LifeVest to be delivered, although he is stating it better be this morning. In addition he states he has been a smoker for 60 years and even though he will quit at some point he is not ready to right now and wants to leave to go home to smoke. Discussed that he has had no chente aaliyah in his system for 48 hours so now would be the perfect time to quit smoking, verbalizes understanding but states he is not ready. Remains in sinus rhythm with first-degree AV block, bundle branch block, hemodynamically stable. Remains on room air. No other new concerns. Objective - Vital Signs Vital signs: Vital Signs Temp 97.9 F 07/12/24 06:29 Pulse 84 07/12/24 06:29 Resp 16 07/12/24 06:29 BP 115/69 07/12/24 06:29 Pulse Ox 94 L 07/12/24 06:29 FiO2 Intake & Output 07/11/24 07/12/24 07/12/24 18:59 06:59 18:59 Intake Total 480 222 Balance 480 222 Weight 124.738 kg 122.6 kg Intake: Oral 480 222 Other: Voiding Method Toilet # Voids 2 # Bowel Movements 0 - Exam CONSTITUTIONAL: Appears comfortable, no acute distress RESPIRATORY: Lungs sounds diminished bilaterally. Respirations even, nonlabored. Currently on room air with oxygen saturation 94% CARDIOVASCULAR: S1, S2 present. Regular rate and rhythm, sinus rhythm on telemetry. Palpable peripheral pulses bilaterally. Bilateral lower extremity edema present GASTROINTESTINAL: Abdomen soft, nontender, nondistended. Active bowel sounds present 4 quadrants. Tolerating diet GENITOURINARY: Continues to void INTEGUMENTARY: Skin is warm and dry NEUROLOGIC: Cranial nerves II through XII intact MUSKULOSKELETAL: Able to move all extremities, strength equal bilaterally, gait normal PSYCHIATRIC: Alert and oriented to person place and time - Allied health notes Allied health notes reviewed: nursing - Labs CBC & Chem 7: 07/12/24 05:18 07/12/24 05:18 Labs: Abnormal Lab Results - Last 24 Hours (Table) 07/12/24 Range/Units 05:18 Glucose 109 H (74-99) mg/dL Assessment and Plan Assessment: Coronary artery disease, non-STEMI this admission Cardiomyopathy, EF 30 to 35% History of coronary artery disease with previous PCI to the LAD and RCA Hypertension Hyperlipidemia, treated, cholesterol 133, LDL 76 Chronic heavy tobacco dependence Chronic EtOH use Morbid obesity Plan: Would prefer patient wait to meet with cardiothoracic surgeon, however patient is adamant about leaving and may not stick around long enough. Office will call patient tomorrow with appointment with cardiothoracic surgeon Continue to maximize medical therapy with aspirin, Effient, statin, beta- lawrence, IRWIN inhibitor, Aldactone Patient to have carotid dopplers at Dr. Patel's office Patient was counseled regarding complete smoking cessation Increase activity as tolerated Medical management of other comorbidities per internal medicine, cardiology I have reviewed the cath films and met the patient. He has significant LM and chronically occluded RCA. He is s/p LAD PCI after NSTEMI. He denies CP or SOB. He is on Effient. He will be evaluated for CABG. Preop testing is ordered. I have d/w him the options for CABG with Grafts to the LCX and RCA. PCI of LCX may be an option as well. We will review the echo to see if the inferior wall appears viable. The patient wishes to go home and consider the options. He will return to speak to Dr. Apodaca as an outpatient. I have also spoken with Dr. Gates who will see him today. He may be stable for discharge today. Thank you for the consultation.
[2024-07-12 08:54] VITALS: BP 116/67; PULSE 76; TEMP 97.8
--- NOTE | 2024-07-12 10:47 | P.PN ---
Subjective Progress Note Date: 07/12/24 HISTORY OF PRESENTING ILLNESS This is a pleasant 69-year-old with past medical history significant for hyp ertension, hyperlipidemia, tobacco abuse, alcohol use, CAD with prior PCI. He follows in the office with Dr. Patel. He actually just followed with Dr. Patel in the office on Saturday and was feeling fairly well. He went home from the office visit and later that night started to have some chest discomfort. Originally he thought it may be gas related and felt more like a pressure. It came and went and then was able to go sleep however on had recurrence and he did take nitroglycerin with improvement. He had been feeling somewhat better yesterday however this morning had recurrence and therefore came to emergency department. A nitroglycerin patch was placed and currently he states his pressure is about a 0.5 which is similar to what he always has. He denies any significant shortness breath, diaphoresis or lightheadedness. Denies any recent fevers or chills. He states his last heart catheterization and PCI was approximately 13 years ago and prior to that 5-10 years. He is still smoking and has not been able to quit. EKG showing normal sinus rhythm with Q waves V1 and V2, right bundle branch morphology with borderline J-point elevation the 3 with biphasic T waves V3 V4 and T-wave inversions inferiorly. Blood work shows hemoglobin 14.7, white blood cell count 12.6, creatinine 0.8, AST 60, ALT 34, troponin 10.5. He has chronic LE edema however denies any worsening. Left heart cath 07/10/2024 showed left main 30-40% stenosis, LAD stent occlusion, OM 70% stenosis, he underwent PCI of the LAD and was referred for CABG eval. Echocardiogram shows EF 30-35%, mild mitral stenosis. 07/11/24 Patient denies any chest pain or shortness of breath. He is feeling better and back to his baseline. He wants to go home. LDL 75. He did have 16 beat run of VT on telemetry. 07/12/2024 He is out of bed in bedside chair. He denies any chest pain or pressure. No shortness of breath, dizziness. He is anxious to go home. Creatinine stable 0.84. PHYSICAL EXAMINATION Vital signs reviewed. CONSTITUTIONAL: No apparent distress. HEENT: Head is normocephalic. Pupils are equal, round. Sclerae anicteric. Mucous membranes of the mouth are moist. No JVD. No carotid bruit. CHEST EXAMINATION: Lungs are clear to auscultation. No chest wall tenderness is noted on palpation or with deep breathing. HEART EXAMINATION: Regular rate and rhythm. S1, S2 heard. No murmurs, gallops or rub. ABDOMEN: Soft, nontender. Positive bowel sounds. EXTREMITIES: 2+ peripheral pulses, 2+ lower extremity edema and no calf tenderness. Right radial site with no redness swelling or drainage. NEUROLOGIC EXAMINATION: Patient is awake, alert and oriented x3. ASSESSMENT Non-STEMI likely type I mechanism CAD with prior history PCI remotely, last approximately 2011; s/p PCI LAD Hypertension Hyperlipidemia Tobacco abuse Alcohol use PLAN He has been referred to cardiothoracic surgery for CABG eval and workup is in process. He will complete workup as an outpatient. Recommends LifeVest and patient is agreeable to this, he will be fit for this prior to discharge. Consider adding Jardiance. Continue with dual antiplatelet therapy. Continue high intensity statin. Okay to discharge home from a cardiology standpoint. Follow-up in clinic in [address] Prieto. Patient seen and examined in rounds with Dr. Gates, plan of care agreed upon. Objective - Vital Signs Vital signs: Vital Signs Temp 97.9 F 07/12/24 06:29 Pulse 84 07/12/24 06:29 Resp 16 07/12/24 06:29 BP 115/69 07/12/24 06:29 Pulse Ox 94 L 07/12/24 06:29 FiO2 Intake & Output 07/11/24 07/12/24 07/12/24 18:59 06:59 18:59 Intake Total 480 222 Balance 480 222 Weight 124.738 kg 122.6 kg Intake: Oral 480 222 Other: Voiding Method Toilet # Voids 2 # Bowel Movements 0 - Labs CBC & Chem 7: 07/12/24 05:18 07/12/24 05:18 Labs: Abnormal Lab Results - Last 24 Hours (Table) 07/12/24 Range/Units 05:18 Glucose 109 H (74-99) mg/dL
--- NOTE | 2024-07-12 12:25 | P.CNPUL ---
History of Present Illness Consult date: 07/12/24 Reason for consult: COPD History of present illness: This is a 69-year-old male patient with coronary artery disease, NSTEMI at the time of admission with an ejection fraction of around 30 to 35% and the patient has undergone previous PCI to LAD and RCA. The patient is also known to have hypertension hyperlipidemia and is a chronic smoker. He is also obese and carries a body mass index of 39. Denies having any sleep apnea. Noted, during this current hospital stay, the patient underwent a CAT scan of the chest that showed a tiny nonspecific right upper lobe pulmonary nodule measuring 8 mm in size. There was also some nonspecific mediastinal lymphadenopathy largest in the pretracheal region measuring 1.2 cm in size. Based on that, pulmonary consultation was requested. The patient is currently on room air oxygen. He has a chronic cough and congestion related to his smoking as the patient smokes more than 1 pack of cigarettes a day. The patient was seen by cardiothoracic surgery. He is being considered for a coronary artery bypass surgery on outpatient basis. He was also offered a LifeVest. Noted his repeat cardiac catheterization showed significant left main and chronic low occluded RCA disease. He is also status post PCI to LAD. He is currently on IV heparin. Free of any chest pain. He is eager to go home. He is also on a combination of aspirin and Effient and he is also on metoprolol 25 mg twice a day and Farxiga. He was also given Lipitor 80 mg p.o. daily. Review of Systems Constitutional: Reports daytime sleepiness, Reports fatigue, Reports weight gain Eyes: denies as per HPI, denies blurred vision, denies bulging eye, denies decreased vision, denies diplopia, denies discharge, denies dry eye, denies irritation, denies itching, denies pain, denies photophobia, denies loss of peripheral vision, denies loss of vision, denies tunnel vision/blind spots Ears: deny: decreased hearing, ear discharge, earache, tinnitus Ears, nose, mouth and throat: Reports as per HPI Breasts: absent: as per HPI, gynecomastia Cardiovascular: Reports chest pain Respiratory: Reports cough, Reports snoring Gastrointestinal: Reports as per HPI Genitourinary: Reports as per HPI Musculoskeletal: Reports as per HPI Musculoskeletal: absent: ankle pain, ankle stiffness, ankle swelling, as per HPI, elbow pain, elbow stiffness, elbow swelling, foot pain, foot stiffness, foot swelling, hand pain, hand stiffness, hand swelling, hip pain, hip stiffness, hip swelling, knee pain, knee stiffness, knee swelling, shoulder pain, shoulder stiffness, shoulder swelling, wrist pain, wrist stiffness, wrist swelling Integumentary: Reports as per HPI Neurological: Reports as per HPI Psychiatric: Reports as per HPI Endocrine: Reports as per HPI Hematologic/Lymphatic: Reports as per HPI Allergic/Immunologic: Reports as per HPI Past Medical History Past Medical History: Coronary Artery Disease (CAD), Chest Pain / Angina, COPD, Hyperlipidemia, Hypertension, Myocardial Infarction (MA) Last Myocardial Infarction Date:: 07/10/2024 History of Any Multi-Drug Resistant Organisms: None Reported Past Surgical History: Heart Catheterization With Stent Date of Last Stent Placement:: 07/10/2024 Smoking Status: Current every day smoker Past Alcohol Use History: Heavy Past Drug Use History: None Reported Medications and Allergies Home Medications Medication Instructions Recorded Confirmed Type Metoprolol Tartrate [Lopressor] 25 mg PO BID 07/10/24 07/10/24 History Spironolactone [Aldactone] 25 mg PO DAILY 07/10/24 07/10/24 History allopurinoL [Zyloprim] 100 mg PO DAILY PRN 07/10/24 07/10/24 History Aspirin EC [Ecotrin Low Dose] 81 mg PO DAILY #30 tab 07/12/24 Rx Atorvastatin [Lipitor] 80 mg PO HS #30 tab 07/12/24 Rx Dapagliflozin Propanediol [Farxiga] 10 mg PO DAILY #30 tab 07/12/24 Rx Prasugrel [Effient] 10 mg PO DAILY #30 tab 07/12/24 Rx lisinopriL [Zestril] 5 mg PO BID #60 tab 07/12/24 Rx Allergies Allergy/AdvReac Type Severity Reaction Status Date / Time No Known Allergies Allergy Verified 07/10/24 11:00 Physical Exam Vitals: Vital Signs Temp Pulse Pulse Resp BP Pulse Ox 07/12/24 08:52 97.8 F 76 16 116/67 96 07/12/24 06:29 97.9 F 84 16 115/69 94 L 07/12/24 04:00 97.9 F 84 84 16 94 L 07/12/24 02:21 98.5 F 79 15 101/65 94 L 07/11/24 20:00 97.9 F 77 16 110/60 94 L 07/11/24 16:00 98.2 F 75 16 103/60 95 07/11/24 12:07 98 F 69 16 95/60 96 Intake and Output 07/11/24 07/12/24 07/12/24 22:59 06:59 14:59 Intake Total 480 222 Balance 480 222 Intake: Oral 480 222 Other: Voiding Method Toilet # Voids 2 Weight 122.6 kg The patient appeared well nourished and normally developed. Vital signs as documented. Patient is currently on room air oxygen. Obese with a body mass index of 39.9 Head exam is unremarkable. No scleral icterus or corneal arcus noted. Neck is without jugular venous distension, thyromegaly, or carotid bruits. Carotid upstrokes are brisk bilaterally. Lungs are showing diminished breath sounds bilaterally lung was clear expiratory wheezes. Cardiac exam reveals the PMI to be normally sized and situated. Rhythm is regular. First and second heart sounds normal. No murmurs, rubs or gallops. Abdominal exam reveals normal bowel sounds, no masses, no organomegaly and no aortic enlargement. Extremities are nonedematous and both femoral and pedal pulses are normal. Examination of the skin revealed no evidence of significant rashes, suspicious appearing nevi or other concerning lesions. Neurologically, the patient is awake and alert and the patient does not have any focal neurological deficit. Cranial nerves are essentially intact. Results - Laboratory Findings CBC and BMP: 07/12/24 05:18 07/12/24 05:18 PT/INR, D-dimer PT 10.7 sec (10.0-12.5) 07/10/24 10:25 INR 1.0 (<1.2) 07/10/24 10:25 Abnormal lab findings: Abnormal Labs 07/10/24 07/10/24 07/10/24 10:25 10:25 10:25 WBC 12.6 H Neutrophils # 9.9 H Glucose 117 H AST 60 H Alkaline Phosphatase 131 H Troponin I 10.500 H* TSH 07/10/24 07/10/24 07/11/24 14:50 18:09 05:15 WBC Neutrophils # Glucose 103 H AST Alkaline Phosphatase Troponin I 14.100 H* 19.800 H* TSH 5.390 H 07/12/24 05:18 WBC Neutrophils # Glucose 109 H AST Alkaline Phosphatase Troponin I TSH - Diagnostic Findings Chest x-ray: image reviewed Assessment and Plan Plan: Coronary artery disease, non-STEMI this admission, and the patient is status post PCI and stenting of the proximal LAD lesion. Patient in addition is being considered for coronary revascularization surgery on outpatient basis. Currently on a combination of aspirin and Effient. Currently on beta-blockers and statins. Free of any chest pain. CHF with ischemic cardiomyopathy, EF 30 to 35%, compensated History of coronary artery disease with previous PCI to the LAD and RCA Right upper lobe nonspecific pulmonary nodule measuring 8 mm in size. Nonspecific mediastinal lymphadenopathy largest in the pretracheal region measuring 1.2 cm in size. COPD Hypertension Hyperlipidemia, treated, cholesterol 133, LDL 76 Chronic heavy tobacco dependence Chronic EtOH use Morbid obesity Plan From a pulmonary standpoint, the patient has COPD. He will need a pulmonary function test on outpatient basis to assess the severity of his COPD. His COPD is currently inactive and stable. No signs of any acute COPD exacerbation. Suggest albuterol rescue inhaler to use on an as-needed basis on outpatient basis. As far as the right upper lobe pulmonary nodule, this can be followed up on outpatient basis. There is a nonspecific pulmonary nodule in the right upper lobe and based on his history of smoking, a follow-up CAT scan needs to be done within the next 3 to 6 months. I am glad to follow-up this patient and optimize his respiratory status especially if a cardiac bypass surgery is being considered at later stage. Optimize cardiac condition. Possible LifeVest. Continue current cardiac medi cation. Patient is insistent on going home today.
--- NOTE | 2024-07-16 08:23 | CDI ---
Documentation Clarification Form Date: 07/16/24 From: Zina Lee Admit Date: 07/10/2024 11:51:00 AM Patient Name: Tang Pichardo Visit Number: [id number] Discharge Date: 07/12/2024 12:23:00 PM ATTENTION: The Clinical Documentation Specialists (CDI) and [facility] Coding Staff appreciate your assistance in clarifying documentation. Please respond to the clarification below the line at the bottom and electronically sign. The CDI & [facility] Coding staff will review the response and follow-up if needed. Please note: Queries are made part of the Legal Health Record. If you have any questions, please contact the author of this message via ITS. Doctor/Provider: Suresh E Sheet, NSTEMI is documented in the ED document and patient is noted to have a previous cardiac stent of the LAD per cardiac cath report ON 07/10. Please clarify if there is a relationship between the diagnosis and cardiac stent. History/Risk Factors: CAD, Cardiomyopathy,VT, HTN Heart Disease W Heart Failure, smoker Clinical Indicators: LAD was previouslystentedand just past, the stent appearsoccluded. This seemsto be the acuteocclusion. (07/10 [place] cath) 07/10 PTCA [place] -RESULTS: Successfulstentingof the proximal LAD withreductionofstenosis from 100% to 0% with IVUSimagingand ASTRID-3 flow at the end. Treatment: PTCA w drug eluding stent Please clarify the relationship, if any, which is clinically appropriate for this patient: [ ] NSTEMI (type 1) due to in-stent stenosis [ ] NSTEMI (type 1) due to end-stent stenosis [x ] Unable to determine [ ] Other Condition, please specify MTDD
--- NOTE | 2024-07-20 09:17 | CDI ---
Documentation Clarification Form Date: 07/16/24 From: Zina Lee Admit Date: 07/20/2024 Patient Name: Tang Pichardo Visit Number: [id number] Discharge Date: 07/12/2024 12:23:00 PM ATTENTION: The Clinical Documentation Specialists (CDI) and [facility] Coding Staff appreciate your assistance in clarifying documentation. Please respond to the clarification below the line at the bottom and electronically sign. The CDI & [facility] Coding staff will review the response and follow-up if needed. Please note: Queries are made part of the Legal Health Record. If you have any questions, please contact the author of this message via ITS. Doctor/Provider: Alisha Torres, NSTEMI is documented in the ED document and patient is noted to have a previous cardiac stent of the LAD per cardiac cath report ON 07/10. Please clarify if there is a relationship between the diagnosis and cardiac stent. History/Risk Factors: CAD, Cardiomyopathy,VT, HTN Heart Disease W Heart Failure, smoker Clinical Indicators: LAD was previouslystentedand just past, the stent appearsoccluded. This seemsto be the acuteocclusion. (07/10 Tumma cath) 07/10 PTCA [place] -RESULTS: Successfulstentingof the proximal LAD withreductionofstenosis from 100% to 0% with IVUSimagingand ASTRID-3 flow at the end. Treatment: PTCA w drug eluding stent Please clarify the relationship, if any, which is clinically appropriate for this patient: [ ] NSTEMI (type 1) due to in-stent stenosis [ ] NSTEMI (type 1) due to end-stent stenosis [ ] Unable to determine [XX ] Other Condition, please specify ___Troponin trending down post MI MTDD
--- NOTE | 2024-07-21 08:34 | CDI ---
Documentation Clarification Form Date: 07/21/24 From: Zina Lee Admit Date: 07/10/2024 11:51:00 AM Patient Name: Tang Pichardo Visit Number: [id number] Discharge Date: 07/12/2024 12:23:00 PM ATTENTION: The Clinical Documentation Specialists (CDI) and [facility] Coding Staff appreciate your assistance in clarifying documentation. Please respond to the clarification below the line at the bottom and electronically sign. The CDI & [facility] Coding staff will review the response and follow-up if needed. Please note: Queries are made part of the Legal Health Record. If you have any questions, please contact the author of this message via ITS. Doctor/Provider: Yvette Torres, Conflicting documentation has been found in the medical record. As attending physician, please provide clarification. Patient with previous cardiac stent of the LAD per cardiac cath report on 07/10. Per 07/10 PTCA report -Three-vessel coronary artery disease with a chronically occluded right coronary artery, what appears like an acute occlusion distal to the stent of the LAD and chronic 70% to 80% stenosis involving circumflex coronary artery. History/Risk Factors: CAD, Cardiomyopathy, VT, HTN Heart Disease W Heart Failure, smoker Clinical Indicators: LAD was previouslystentedand just past, the stent appearsoccluded. This seemsto be the acuteocclusion. (07/10 Tumma cath) 07/10 PTCA [place] -RESULTS: Successfulstentingof the proximal LAD withreductionofstenosis from 100% to 0% with IVUSimagingand ASTRID-3 flow at the end. Treatment: PTCA w drug eluding stent of the LAD Please clarify which diagnosis is most appropriate: [ ] In-stent stenosis of LAD [ ] End-stent stenosis of LAD [ ] Occlusion does not involve the stent [xx ] Other (please specify) Late stent occlusion ] Unable to determine MTDD
== END 2024-07-12 12:23 | disposition home or self-care (01) | DRG 321 ==
LOC: EC 09:51 → 3SCARD 11:51
PROVIDERS: ADMIT Hospitalist; ATTEND Hospitalist
PROC: B240ZZ3 Ultrasonography of Single Coronary Artery, Intravascular (ICD-10-PCS; principal; 2024-07-10 09:55)
PROC: 027034Z Dilation of Coronary Artery, One Artery with Drug-eluting Intraluminal Device, Percutaneous Approach (ICD-10-PCS; principal; 2024-07-10 09:55)
PROC: 4A023N7 Measurement of Cardiac Sampling and Pressure, Left Heart, Percutaneous Approach (ICD-10-PCS; 2024-07-10 09:55)
PROC: B2111ZZ Fluoroscopy of Multiple Coronary Arteries using Low Osmolar Contrast (ICD-10-PCS; 2024-07-10 09:55)
DX: T82.855A Stenosis of coronary artery stent, initial encounter (principal); I21.4 Non-ST elevation (NSTEMI) myocardial infarction; I47.20 Ventricular tachycardia, unspecified; I42.9 Cardiomyopathy, unspecified; I11.0 Hypertensive heart disease with heart failure; E66.01 Morbid (severe) obesity due to excess calories; I50.9 Heart failure, unspecified; R59.0 Localized enlarged lymph nodes; R91.1 Solitary pulmonary nodule; M10.9 Gout, unspecified; I25.10 Atherosclerotic heart disease of native coronary artery without angina pectoris; F17.210 Nicotine dependence, cigarettes, uncomplicated; E78.00 Pure hypercholesterolemia, unspecified; I10 Essential (primary) hypertension; I25.2 Old myocardial infarction; I44.0 Atrioventricular block, first degree; I45.10 Unspecified right bundle-branch block; Z68.39 Body mass index [BMI] 39.0-39.9, adult; Z79.02 Long term (current) use of antithrombotics/antiplatelets; Z79.82 Long term (current) use of aspirin; Z79.84 Long term (current) use of oral hypoglycemic drugs; Z79.899 Other long term (current) drug therapy; Z71.6 Tobacco abuse counseling; Z71.3 Dietary counseling and surveillance
CPT/HCPCS: 36415; 71046; 71250; 80048; 80053; 80061; 80074; 83036; 83735; 84439; 84443; 84484; 85025; 85027; 85610; 85730; 92978; 93005; 93306; 93458; 93970; 96365; 99291

== ENCOUNTER 2024-07-15 00:51 | Inpatient (IN) | payer MEDICARE ==
--- NOTE | 2024-07-15 01:04 | ED ---
Chest Pain HPI - General Stated Complaint: Chest pain Time Seen by Provider: 07/15/24 01:04 Source: RN notes reviewed, old records reviewed Mode of arrival: ambulatory Limitations: no limitations - History of Present Illness Initial Comments: This is a 69-year-old male with male presents today for evaluation. Patient presents today for evaluation regards to chest pain, patient is wearing LifeVest with recent stent placement due to some flutter that he had with his heart when he was in the hospital. Patient presents today in ventricular tachycardia MD Complaint: other (Reticular tachycardia) -: hour(s) Onset: during rest Pain Location: substernal Pain Radiation: none Severity: moderate Severity scale (1-10): 5 Consistency: constant Improves With: nothing Worsens With: nothing Anginal Symptoms: dyspnea, sense of impending doom Other Symptoms: palpitations Treatments Prior to Arrival: none - Related Data Home Medications Medication Instructions Recorded Confirmed Metoprolol Tartrate [Lopressor] 25 mg PO BID 07/10/24 07/10/24 Spironolactone [Aldactone] 25 mg PO DAILY 07/10/24 07/10/24 allopurinoL [Zyloprim] 100 mg PO DAILY PRN 07/10/24 07/10/24 Previous Rx's Medication Instructions Recorded Aspirin EC [Ecotrin Low Dose] 81 mg PO DAILY #30 tab 07/12/24 Atorvastatin [Lipitor] 80 mg PO HS #30 tab 07/12/24 Dapagliflozin Propanediol [Farxiga] 10 mg PO DAILY #30 tab 07/12/24 Prasugrel [Effient] 10 mg PO DAILY #30 tab 07/12/24 lisinopriL [Zestril] 5 mg PO BID #60 tab 07/12/24 Allergies Allergy/AdvReac Type Severity Reaction Status Date / Time No Known Allergies Allergy Verified 07/15/24 01:10 Review of Systems ROS Statement: Those systems with pertinent positive or pertinent negative responses have been documented in the HPI. ROS Other: All systems not noted in ROS Statement are negative. EKG Findings - EKG Comments: EKG Findings:: EKG is Sinus 87 MI 284 QRS 133 QTc 426 - EKG Results: EKG: interpreted by GAYLE Past Medical History Past Medical History: Coronary Artery Disease (CAD), Chest Pain / Angina, COPD, Hyperlipidemia, Hypertension, Myocardial Infarction ([place]) Last Myocardial Infarction Date:: 07/10/2024 History of Any Multi-Drug Resistant Organisms: None Reported Past Surgical History: Heart Catheterization With Stent Date of Last Stent Placement:: 07/10/2024 Smoking Status: Current every day smoker Past Alcohol Use History: Heavy Past Drug Use History: None Reported General Exam General appearance: alert, anxious, in distress Head exam: Present: atraumatic, normocephalic, normal inspection Eye exam: Present: normal appearance, PERRL, EOMI. Absent: scleral icterus, conjunctival injection, periorbital swelling ENT exam: Present: normal exam, mucous membranes moist Neck exam: Present: normal inspection. Absent: tenderness, meningismus, lymphadenopathy Respiratory exam: Present: normal lung sounds bilaterally. Absent: respiratory distress, wheezes, rales, rhonchi, stridor Cardiovascular Exam: Present: tachycardia, irregular rhythm, normal heart sounds. Absent: systolic murmur, diastolic murmur, rubs, gallop, clicks GI/Abdominal exam: Present: soft, normal bowel sounds. Absent: distended, tenderness, guarding, rebound, rigid Extremities exam: Present: normal inspection, full ROM, normal capillary refill. Absent: tenderness, pedal edema, joint swelling, calf tenderness Back exam: Present: normal inspection Neurological exam: Present: alert, oriented X3, CN II-XII intact Psychiatric exam: Present: normal affect, normal mood Skin exam: Present: warm, dry, intact, normal color. Absent: rash Course Vital Signs 07/15/24 01:04 Temperature 97.2 F L Pulse Rate 98 Respiratory 16 Rate Blood Pressure 125/60 O2 Sat by Pulse 98 Oximetry - Reevaluation(s) Reevaluation #1: 07/15/24 01:15 Medical records reviewed Reevaluation #2: 07/15/24 01:33 Patient ventricular tachycardia and runs of V. tach are improving here in the ER with amiodarone Reevaluation #3: 07/15/24 01:33 Informed of results questions answered Reevaluation #4: Was pt. sent in by a medical professional or institution (, PA, INFUSION PHARMACIST, urgent care, hospital, or intermediate...) When possible be specific @ -no Did you speak to anyone other than the patient for history (EMS, parent, family, police, friend...)? What history was obtained from this source @ -no Did you review nursing and triage notes (agree or disagree)? Why? @ -agree Are old charts reviewed (outside hosp., previous admission, EMS record, old EKG, old radiological studies, urgent care reports/EKG's, intermediate records)? Report findings @ -yes Differential Diagnosis (chest pain, altered mental status, abdominal pain women, abdominal pain men, vaginal bleeding, weakness, fever, dyspnea, syncope, headache, dizziness, GI bleed, back pain, seizure, CVA, palpatations, mental health, musculoskeletal)? @ -prior EKG interpreted by me (3pts min.). @ -yes X-rays interpreted by me (1pt min.). @ -yes negative for acute disease CT interpreted by me (1pt min.). @ -no U/S interpreted by me (1pt. min.). @ -no What testing was considered but not performed or refused? (CT, X-rays, U/S, labs)? Why? @ -none What meds were considered but not given or refused? Why? @ -none Did you discuss the management of the patient with other professionals (professionals i.e. , PA, INFUSION PHARMACIST, lab, RT, psych nurse, forensic social worker, tool repairer, teacher, chief accounting officer, briefcase sewer)? Give summary @ -no Was smoking cessation discussed for >3mins.? @ -no Was critical care preformed (if so, how long)? @ -no Were there social determinants of health that impacted care today? How? (Homelessness, low income, unemployed, alcoholism, drug addiction, transportation, low edu. Level, literacy, decrease access to med. care, [facility], rehab)? @ -none Was there de-escalation of care discussed even if they declined (Discuss DNR or withdrawal of care, Hospice)? DNR status @ -no What co-morbidities impacted this encounter? (DM, HTN, Smoking, COPD, CAD, Cancer, CVA, ARF, Chemo, Hep., AIDS, mental health diagnosis, sleep apnea, morbid obesity)? @ -none Was patient admitted / discharged? Hospital course, mention meds given and route, prescriptions, significant lab abnormalities, going to OR and other pertinent info. @ - Undiagnosed new problem with uncertain prognosis? @ -no Drug Therapy requiring intensive monitoring for toxicity (Heparin, Nitro, Insulin, Cardizem)? @ -no Were any procedures done? @ -no Diagnosis/symptom? @ - Acute, or Chronic, or Acute on Chronic? @ -Acute Uncomplicated (without systemic symptoms) or Complicated (systemic symptoms)? @ -Complicated Side effects of treatment? @ -no Exacerbation, Progression, or Severe Exacerbation? @ -exacerbation Poses a threat to life or bodily function? How? (Chest pain, [place], ID, pneumonia, PE, COPD, DKA, ARF, appy, cholecystitis, CVA, Diverticulitis, Homicidal, Suicidal, threat to staff... and all critical care pts) @ -yes Reevaluation #5: Differential Palpitations Ventricular arrhythmias, atrial arrhythmias, myocardial infarction, anemia, thyrotoxicosis, electrolyte imbalance, hypokalemia, pulmonary embolism, pulmonary disease, drugs, alcohol, anxiety, stress.... This is not meant to be an all-inclusive list. - Consultations Consultation #1: Patient admit this patient [facility] Chest Pain MDM - MDM 69 male, patient has significant palpitations with LifeVest after having stent placement. Patient is in ventricular tachycardia here in the emergency department Critical Care Time Critical Care Time: Yes Total Critical Care Time: 31 Disposition Clinical Impression: Ventricular tachycardia, Chest pain Disposition: ADMITTED IP TO THIS HOSP Condition: Serious Is patient prescribed a controlled substance at d/c from ED?: No Referrals: Silvia Jacobs MD [Primary Care Provider] - 1-2 days Time of Disposition: 01:30
[2024-07-15 01:29] LABS: Basophils % (A) 0 %; Eosinophils # (A) 0.1 k/uL (0-0.7); Eosinophils % (A) 1 %; HGB 14.9 gm/dL (13.0-17.5); Lymphocytes # (A) 1.8 k/uL (1.0-4.8); Lymphocytes % (A) 15 %; MCH 32.1 pg (25.0-35.0); MCHC 32.4 g/dL (31.0-37.0); MCV 98.9 fL (80.0-100.0); Mean Platelet Volume 7.5; Monocytes # (A) 0.7 k/uL (0-1.0); Monocytes % (A) 6 %; Neutrophils # (A) 9.5 k/uL (1.3-7.7); Neutrophils % (A) 78 %; Platelet Count 277 k/uL (150-450); RBC 4.65 m/uL (4.30-5.90); RDW 12.4 % (11.5-15.5); WBC 12.3 k/uL (3.8-10.6)
[2024-07-15] MEDS ORDERED: NALOXONE 0.4 MG/ML 1 ML VIAL IV PRN (01:31)
[2024-07-15] MEDS ORDERED: MORPHINE SULFATE 4 MG/ML SYRINGE IV PRN (01:31)
[2024-07-15] MEDS ORDERED: ONDANSETRON 4 MG/2 ML VIAL IVP PRN (01:31)
[2024-07-15] MEDS: DEXTROSE 5% IN WATER 100 ML with AMIODARONE 150 MG IV ONE (01:33)
[2024-07-15] MEDS: SODIUM CHLORIDE 0.9% 1,000 ML IV STA (01:34)
[2024-07-15 01:43] LABS: ALT 45 U/L (4-49); AST 53 U/L (17-59); African American GFR (CKD) >90 (>60 ml/min/1.73 sqM); Albumin 4.9 g/dL (3.5-5.0); Alkaline Phosphatase 109 U/L (38-126); Anion Gap 9 mmol/L; Blood Urea Nitrogen 23 mg/dL (9-20); Calcium 9.4 mg/dL (8.4-10.2); Carbon Dioxide 24 mmol/L (22-30); Chloride 103 mmol/L (98-107); Glucose 120 mg/dL (74-99); Magnesium 1.9 mg/dL (1.6-2.3); Non-African American GFR(CKD) 79 (>60 ml/min/1.73 sqM); Phosphorus 4.4 mg/dL (2.5-4.5); Sodium 136 mmol/L (137-145); Total Bilirubin 1.4 mg/dL (0.2-1.3); Total Protein 8.9 g/dL (6.3-8.2)
[2024-07-15 01:49] LABS: NT-Pro-B-Type Natriuretic Pept 3290 pg/mL
[2024-07-15 01:57] LABS: INR 0.9 (<1.2); Partial Thromboplastin Time 22.5 sec (22.0-30.0); Prothrombin Time 10.2 sec (10.0-12.5)
[2024-07-15] MEDS: DEXTROSE 5% IN WATER 250 ML with AMIODARONE 300 MG IV ONE (01:59)
[2024-07-15] MEDS: SODIUM CHLORIDE 0.9% 1,000 ML IV SCH (03:00)
--- NOTE | 2024-07-15 03:07 | XR ---
EXAM: XR Chest, 1 View CLINICAL HISTORY: XR Reason: cp TECHNIQUE: Frontal view of the chest. COMPARISON: July 10, 2024 FINDINGS: Lungs: Unremarkable. No consolidation. Pleural space: Unremarkable. No pneumothorax. Heart: The cardiac silhouette is mildly enlarged. Mediastinum: Unremarkable. Normal mediastinal contour. Bones/joints: Mild osteophytosis throughout the thoracic spine. No acute fracture. Vasculature: The aortic arch is mildly calcified. Upper abdomen: Unremarkable as visualized. No pneumoperitoneum under the diaphragm. IMPRESSION: The cardiac silhouette is mildly enlarged. No overt edema or acute focal infiltrate is seen.
[2024-07-15] MEDS: AMIODARONE 360 MG in DEXTROSE 5% IN WATER 200 ML IV ONE (05:13)
[2024-07-15] MEDS: ASPIRIN 81 MG PO SCH (10:18)
[2024-07-15] MEDS: PRASUGREL 10 MG TAB PO SCH (10:20)
[2024-07-15] MEDS: SPIRONOLACTONE 25 MG TAB PO SCH (10:21)
[2024-07-15] MEDS: MAGNESIUM SULFATE-D5W PMX 1 GM in DEXTROSE/WATER 1 100ML.BAG IVPB ONE (10:22)
[2024-07-15] MEDS: MEXILETINE 150 MG CAP PO SCH (10:27)
[2024-07-15 10:59] LABS: African American GFR (CKD) >90 (>60 ml/min/1.73 sqM); Anion Gap 8 mmol/L; Blood Urea Nitrogen 18 mg/dL (9-20); Carbon Dioxide 26 mmol/L (22-30); Chloride 103 mmol/L (98-107); Glucose 113 mg/dL (74-99); Non-African American GFR(CKD) >90 (>60 ml/min/1.73 sqM); Potassium 4.5 mmol/L (3.5-5.1); Sodium 137 mmol/L (137-145)
[2024-07-15] MEDS: AMIODARONE 450 MG in DEXTROSE 5% IN WATER 250 ML IV SCH (11:08)
--- NOTE | 2024-07-15 13:30 | P.HPIM ---
History of Present Illness Patient pleasant 69-year-old male with known history of severe cardiomyopathy EF of around 30% was discharged home on a LifeVest. Patient was dizzy and while LifeVest was giving notifications at it was about to shock because of which patient turned of the LifeVest multiple times and took of the battery and came to the hospital. Patient denied any chest pain at this time patient [place] catheterization on 10 July this month which showed left main 30 to 40% stenosis LAD stent occlusion OM 70% stenosis echocardiogram showed 30 to 35% ejection fraction patient had an elevated troponin of 1.69 and 1.52. REVIEW OF SYSTEMS: All other systems are negative except those mentioned in the HPI PHYSICAL EXAMINATION: GENERAL: The patient is alert and oriented x3, not in any acute distress. Well developed, well nourished. HEENT: Pupils are round and equally reacting to light. EOMI. No scleral icterus. No conjunctival pallor. Normocephalic, atraumatic. No pharyngeal erythema. No thyromegaly. CARDIOVASCULAR: S1 and S2 present. No murmurs, rubs, or gallops. PULMONARY: Chest is clear to auscultation, no wheezing or crackles. ABDOMEN: Soft, nontender, nondistended, normoactive bowel sounds. No palpable organomegaly. MUSCULOSKELETAL: No joint swelling or deformity. EXTREMITIES: No cyanosis, clubbing, or pedal edema. NEUROLOGICAL: Gross neurological examination did not reveal any focal deficits. SKIN: No rashes. Assessment and plan -Episodes of V. tach possibly patient was started on amiodarone cardiology will evaluate the patient. Further management as per cardiology recommendation -Elevated troponins can be from the recent cardiac catheterization cardiology evaluation Congestive heart failure chronic systolic function without any acute exacerbation patient will be resumed on home medications IV fluids will be discontinued -Hyperlipidemia -Coronary artery disease -Elevated TSH will obtain T4 levels For above-mentioned chronic medical problems patient was resumed on appropriate home medications DVT prophylaxis: Subcutaneous heparin Past Medical History Past Medical History: Coronary Artery Disease (CAD), Chest Pain / Angina, COPD, Hyperlipidemia, Hypertension, Myocardial Infarction ([place]) Last Myocardial Infarction Date:: 07/10/2024 History of Any Multi-Drug Resistant Organisms: None Reported Past Surgical History: Heart Catheterization With Stent Date of Last Stent Placement:: 07/10/2024 Smoking Status: Current every day smoker Past Alcohol Use History: Heavy Past Drug Use History: None Reported Medications and Allergies Home Medications Medication Instructions Recorded Confirmed Type Metoprolol Tartrate [Lopressor] 25 mg PO BID 07/10/24 07/15/24 History Spironolactone [Aldactone] 25 mg PO DAILY 07/10/24 07/15/24 History allopurinoL [Zyloprim] 100 mg PO DAILY PRN 07/10/24 07/15/24 History Aspirin EC [Ecotrin Low Dose] 81 mg PO DAILY #30 tab 07/12/24 07/15/24 Rx Atorvastatin [Lipitor] 80 mg PO HS #30 tab 07/12/24 07/15/24 Rx Prasugrel [Effient] 10 mg PO DAILY #30 tab 07/12/24 07/15/24 Rx lisinopriL [Zestril] 5 mg PO BID #60 tab 07/12/24 07/15/24 Rx Allergies Allergy/AdvReac Type Severity Reaction Status Date / Time No Known Allergies Allergy Verified 07/15/24 07:44 Physical Exam Vitals: Vital Signs Temp Pulse Resp BP Pulse Ox 07/15/24 13:12 72 18 124/62 96 07/15/24 12:05 98.3 F 71 18 110/85 96 07/15/24 11:30 73 18 117/61 93 L 07/15/24 10:25 67 18 120/68 95 07/15/24 09:05 61 18 110/63 94 L 07/15/24 08:35 97.7 F 78 16 93/80 95 07/15/24 07:03 67 18 101/51 97 07/15/24 04:30 85 18 130/65 97 07/15/24 04:00 70 17 103/76 97 07/15/24 03:30 70 15 107/55 94 L 07/15/24 03:00 67 20 114/67 97 07/15/24 02:30 67 17 99/86 93 L 07/15/24 02:00 75 17 110/65 99 07/15/24 01:34 78 18 110/65 98 07/15/24 01:04 97.2 F L 98 16 125/60 98 Intake and Output 07/14/24 07/15/24 07/15/24 22:59 06:59 14:59 Other: Weight 122.47 kg Results CBC & Chem 7: 07/15/24 01:19 07/15/24 10:12 Labs: Abnormal Lab Results - Last 24 Hours (Table) 07/15/24 07/15/24 07/15/24 Range/Units 01:19 01:19 01:19 WBC 12.3 H (3.8-10.6) k/uL Neutrophils # 9.5 H (1.3-7.7) k/uL Sodium 136 L (137-145) mmol/L BUN 23 H (9-20) mg/dL Glucose 120 H (74-99) mg/dL Total Bilirubin 1.4 H (0.2-1.3) mg/dL Troponin I 2.080 H* (0.000-0.034) ng/mL Total Protein 8.9 H (6.3-8.2) g/dL TSH 9.100 H (0.465-4.680) mIU/L 07/15/24 07/15/24 07/15/24 Range/Units 05:00 08:10 10:12 WBC (3.8-10.6) k/uL Neutrophils # (1.3-7.7) k/uL Sodium (137-145) mmol/L BUN (9-20) mg/dL Glucose 113 H (74-99) mg/dL Total Bilirubin (0.2-1.3) mg/dL Troponin I 1.690 H* 1.520 H* (0.000-0.034) ng/mL Total Protein (6.3-8.2) g/dL TSH (0.465-4.680) mIU/L
--- NOTE | 2024-07-15 14:08 | P.CRDCN ---
History of Present Illness Consult date: 07/15/24 Reason for Consult (text): Ventricular tachycardia History of present illness: This is a 69-year-old male patient of Dr. Rosa Patel with past medical history of hypertension, dyslipidemia, coronary artery disease with multivessel CAD, ischemic cardiomyopathy with EF 35%, chronic systolic heart failure. We have been asked to evaluate the patient for ventricular tachycardia. Patient had a recent hospitalization at the beginning of this month and underwent cardiac catheterization on 07/10 finding three-vessel coronary artery disease with chr onically occluded right coronary artery what appears to be acute occlusion to the distal stent of the LAD and chronic 70% to 80% stenosis involving the circumflex. Dr. Torres performed stent to the proximal LAD. Patient was evaluated by cardiothoracic surgery and options were provided to the patient he was to have a follow-up appointment with Dr. Apodaca as an outpatient. We will add a consult for cardiothoracic surgery to reevaluate. Patient has a LifeVest that was placed prior to his discharge from the hospital. He states he noticed that 2 lights came on and he was pushing the button so that it would reset. He states this happened about 10 times. He was not shocked by the vest. The vest is currently off. Patient denies having chest pain. No shortness of breath. Blood pressure 101/51, heart rate 67, pulse ox 97% on room air. Patient is seen today in the emergency center waiting for a bed on the cardiac stepdown unit. Patient has been started on amiodarone drip. Patient has had multiple runs of V. tach. -EKG: #1 sinus rhythm #2 V. tach with run of 15 beats -Chest x-ray: Cardiac silhouette is mildly enlarged. No overt edema or acute focal infiltrate. -Laboratory studies: WBC 12.3, hemoglobin 14.9. Sodium 136, potassium not calculated, BUN 23 creatinine 0.97. Troponins 2.08, 1.69. proBNP 3290. TSH 9.1 -Home cardiac medications: Aspirin 81 mg daily, atorvastatin 80 mg at bedtime, lisinopril 5 mg twice daily, metoprolol tartrate 25 mg twice daily, Effient 10 mg daily, spironolactone 25 mg daily. -Echocardiogram performed on 07/10/2024: EF 30%, apical hypokinesia. Calcified mitral valve with mild mitral stenosis, mild mitral regurgitation. Review Of Systems: At the time of my exam: CONSTITUTIONAL: Denies fever or chills. HEENT: Denies blurred vision, vision changes, or eye pain. Denies hemoptysis CARDIOVASCULAR: Denies chest pain. Denies orthopnea. Denies PND. Denies palpitations RESPIRATORY: Denies shortness of breath. GASTROINTESTINAL: Denies abdominal pain. Denies nausea or vomiting. HEMATOLOGIC: Denies bleeding disorders. GENITOURINARY: Denies any blood in urine. SKIN: Denies puritis. Denies rash. Physical examination: Gen: This is a 69-year-old male appears to be in no acute distress. VS: reviewed HEENT: Head is atraumatic, normocephalic. Pupils equal, round. Sclerae is anicteric. NECK: Supple. No JVD. LUNGS: Clear to auscultation. No wheezes or rhonchi. No intercostal retractions. HEART: Regular rate and rhythm. No murmur. ABDOMEN: Soft No tenderness. EXTREMITIES: No pedal edema. No calf tenderness. NEUROLOGICAL: Patient is awake, alert and oriented x3. Assessment: Frequent episodes of ventricular tachycardia Coronary artery disease status post stent to the LAD on 07/10 Known three-vessel cardiac disease evaluated by cardiothoracic surgery for CABG Hypertension Dyslipidemia Ischemic cardiomyopathy with LifeVest Chronic systolic heart failure Elevated troponins due to recent NSTEMI Plan: Resume patient's home cardiac medications with the following changes Decrease lisinopril to 2.5 mg at bedtime and hold for systolic blood pressure less than 100 Continue amiodarone drip Start patient on Mexitil 150 mg every 8 hours Give 1 g of magnesium IV piggyback Continue LifeVest Obtain limited echocardiogram to evaluate EF Consult cardiothoracic surgery regarding CABG Further recommendations to follow based upon clinical course Thank you kindly for this consultation. Nurse practitioner note has been reviewed, I agree with documented findings and plan of care. Patient was seen and examined. Past Medical History Past Medical History: Coronary Artery Disease (CAD), Chest Pain / Angina, COPD, Hyperlipidemia, Hypertension, Myocardial Infarction ([place]) Last Myocardial Infarction Date:: 07/10/2024 History of Any Multi-Drug Resistant Organisms: None Reported Past Surgical History: Heart Catheterization With Stent Date of Last Stent Placement:: 07/10/2024 Smoking Status: Current every day smoker Past Alcohol Use History: Heavy Past Drug Use History: None Reported Medications and Allergies Home Medications Medication Instructions Recorded Confirmed Type Metoprolol Tartrate [Lopressor] 25 mg PO BID 07/10/24 07/15/24 History Spironolactone [Aldactone] 25 mg PO DAILY 07/10/24 07/15/24 History allopurinoL [Zyloprim] 100 mg PO DAILY PRN 07/10/24 07/15/24 History Aspirin EC [Ecotrin Low Dose] 81 mg PO DAILY #30 tab 07/12/24 07/15/24 Rx Atorvastatin [Lipitor] 80 mg PO HS #30 tab 07/12/24 07/15/24 Rx Prasugrel [Effient] 10 mg PO DAILY #30 tab 07/12/24 07/15/24 Rx lisinopriL [Zestril] 5 mg PO BID #60 tab 07/12/24 07/15/24 Rx Allergies Allergy/AdvReac Type Severity Reaction Status Date / Time No Known Allergies Allergy Verified 07/15/24 07:44 Physical Exam Vitals: Vital Signs Temp Pulse Resp BP Pulse Ox 07/15/24 07:03 67 18 101/51 97 07/15/24 04:30 85 18 130/65 97 07/15/24 04:00 70 17 103/76 97 07/15/24 03:30 70 15 107/55 94 L 07/15/24 03:00 67 20 114/67 97 07/15/24 02:30 67 17 99/86 93 L 07/15/24 02:00 75 17 110/65 99 07/15/24 01:34 78 18 110/65 98 07/15/24 01:04 97.2 F L 98 16 125/60 98 Intake and Output 07/14/24 07/15/24 07/15/24 22:59 06:59 14:59 Other: Weight 122.47 kg Results 07/15/24 01:19 07/15/24 10:12 Cardiac Enzymes 07/15/24 07/15/24 07/15/24 Range/Units 01:19 01:19 05:00 AST 53 (17-59) U/L Troponin I 2.080 H* 1.690 H* (0.000-0.034) ng/mL Coagulation 07/15/24 Range/Units 01:19 PT 10.2 (10.0-12.5) sec APTT 22.5 (22.0-30.0) sec CBC 07/15/24 Range/Units 01:19 WBC 12.3 H (3.8-10.6) k/uL RBC 4.65 (4.30-5.90) m/uL Hgb 14.9 (13.0-17.5) gm/dL Hct 46.0 (39.0-53.0) % Plt Count 277 (150-450) k/uL Comprehensive Metabolic Panel 07/15/24 Range/Units 01:19 Sodium 136 L (137-145) mmol/L Potassium (3.5-5.1) mmol/L Chloride 103 (98-107) mmol/L Carbon Dioxide 24 (22-30) mmol/L BUN 23 H (9-20) mg/dL Creatinine 0.97 (0.66-1.25) mg/dL Glucose 120 H (74-99) mg/dL Calcium 9.4 (8.4-10.2) mg/dL AST 53 (17-59) U/L ALT 45 (4-49) U/L Alkaline Phosphatase 109 (38-126) U/L Total Protein 8.9 H (6.3-8.2) g/dL Albumin 4.9 (3.5-5.0) g/dL Current Medications Generic Name Dose Route Start Last Admin Trade Name Freq PRN Reason Stop Dose Admin Sodium Chloride 1,000 mls @ 130 mls/hr 07/15/24 01:13 07/15/24 01:43 Saline 0.9% IV 07/15/24 08:54 Not Given .[id number] STA Sodium Chloride 1,000 mls @ 20 mls/hr 07/15/24 01:45 07/15/24 03:00 Saline 0.9% IV 20 mls/hr .Q24H FABY Administration Amiodarone HCl 450 mg/ 250 mls @ 16.667 mls/hr 07/15/24 11:00 Dextrose/Water IV 07/16/24 04:59 .Q15H FABY Protocol 0.5 MG/MIN Amiodarone HCl 360 mg/ 200 mls @ 33.333 mls/hr 07/15/24 05:00 07/15/24 07:37 Dextrose/Water IV 07/15/24 10:59 Not Given .Q6H ONE Protocol 1 MG/MIN Morphine Sulfate 4 mg 07/15/24 01:31 Morphine Sulfate 4 Mg/Ml Syringe IV Q4HR PRN Severe Pain (Scale 7 to 10) Naloxone HCl 0.2 mg 07/15/24 01:31 Naloxone 0.4 Mg/Ml 1 Ml Vial IV Q2M PRN Opioid Reversal Ondansetron HCl 4 mg 07/15/24 01:31 Ondansetron 4 Mg/2 Ml Vial IVP Q8HR PRN Nausea And Vomiting Intake and Output 07/14/24 07/15/24 07/15/24 22:59 06:59 14:59 Other: Weight 122.47 kg 07/15/24 01:19 07/15/24 01:19
--- NOTE | 2024-07-15 14:37 | P.GSCN ---
History of Present Illness Consult date: 07/15/24 Reason for Consult: CAD Requesting physician: Kimberly Skelton History of present illness: This is a 69-year-old gentleman who follows outpatient with Dr. Jacobs for primary care and Dr. Patel for cardiology. He has a previous medical history of coronary artery disease with recent myocardial infarction and PCI to the LAD along with previous PCI to the LAD and RCA, ischemic cardiomyopathy/heart failure with reduced ejection fraction, hypertension, hyperlipidemia, chronic heavy tobacco dependence, COPD, chronic EtOH use, syncopal episode in November 2023, gout, morbid obesity, and family history of premature coronary artery disease with father and brother from myocardial infarction at 57 years old. This gentleman was recently hospitalized with acute myocardial infarction and underwent PCI to the LAD, was placed on goal-directed medical therapy including dual antiplatelet therapy with Effient and aspirin. His heart catheterization also revealed OM branch of the circumflex coronary artery with 70% stenosis, chronic total occlusion in the mid RCA with left to right and right to right collaterals, and left main stenosis 30 to 40%. He had an echocardiogram during that admission revealing reduced left ventricular systolic function with EF 30 to 35%, mild concentric LVH, mild mitral and trace aortic regurgitation. Cardiothoracic surgery was consulted for residual left main disease, preoperati ve testing was initiated, and he was seen by Dr. Jack with recommendations for discharge and outpatient follow-up. He was scheduled to see Dr. Apodaca 08/06/24 @ 3:30 pm. He was discharged to home with a LifeVest in place. Unfortunately last night his life vest alerted him that it was going to shock him, the patient misunderstood and took the batteries out of the LifeVest. He presented to [facility] emergency room for evaluation and treatment. He denied any chest pain, shortness of breath, nausea, diaphoresis, or any other symptomatology. In the emergency room he was shown to have several episodes of V. tach, he was started on IV amiodarone. Lab work revealed WBC 12.3, hemoglobi n 14.9, INR 0.9, creatinine 0.97, BNP 3290, TSH 9.1, and troponins are trending down from previous admission, currently 1.52 with peak troponin 19.8 on July 10, 2024. Chest x-ray revealed enlarged cardiac silhouette. The patient is being admitted and consultation was placed to cardiology who ordered a repeat echocardiogram, goal-directed medical therapy, and consultation to Dr. Apodaca from cardiothoracic surgery for CABG evaluation. Review of Systems Review of systems was completed and was negative except as noted - Cardiovascular Cardiovascular Comment(s): Shock alert from life vest Past Medical History Past Medical History: Coronary Artery Disease (CAD), Chest Pain / Angina, Heart Failure, COPD, Hyperlipidemia, Hypertension, Myocardial Infarction ([place]), Pneumonia, Syncope Additional Past Medical History / Comment(s): V. tach; ischemic cardiomyopathy; gout Last Myocardial Infarction Date:: 07/10/2024 History of Any Multi-Drug Resistant Organisms: None Reported Past Surgical History: Heart Catheterization With Stent Date of Last Stent Placement:: 07/10/2024 Past Psychological History: No Psychological Hx Reported Smoking Status: Current every day smoker Past Alcohol Use History: Heavy Additional Past Alcohol Use History / Comment(s): Used to drink 10-12 cases a month, switched to vodka which began to make him sick approximately 1 month ago, switch back to beer but claims to have had less than 12 beers in the last 2 weeks Past Drug Use History: None Reported Additional Drug Use History / Comment(s): Used to use marijuana, nothing in many years Additional History: Smokes 1 pack/day, has smoked for 60 years, back when he was working smoked 3-4 packs per day - Past Family History Mother Family Medical History: Coronary Artery Disease (CAD), Myocardial Infarction ([place]) Additional Family Medical History / Comment(s): from myocardial infarction Father Family Medical History: Coronary Artery Disease (CAD), Myocardial Infarction ([place]) Additional Family Medical History / Comment(s): from myocardial infarction at 57 years old Brother(s) Family Medical History: Coronary Artery Disease (CAD), Myocardial Infarction ([place]) Additional Family Medical History / Comment(s): from myocardial infarction at 57 years old Sister(s) Family Medical History: Coronary Artery Disease (CAD) Medications and Allergies Home Medications Medication Instructions Recorded Confirmed Type Metoprolol Tartrate [Lopressor] 25 mg PO BID 07/10/24 07/15/24 History Spironolactone [Aldactone] 25 mg PO DAILY 07/10/24 07/15/24 History allopurinoL [Zyloprim] 100 mg PO DAILY PRN 07/10/24 07/15/24 History Aspirin EC [Ecotrin Low Dose] 81 mg PO DAILY #30 tab 07/12/24 07/15/24 Rx Atorvastatin [Lipitor] 80 mg PO HS #30 tab 07/12/24 07/15/24 Rx Prasugrel [Effient] 10 mg PO DAILY #30 tab 07/12/24 07/15/24 Rx lisinopriL [Zestril] 5 mg PO BID #60 tab 07/12/24 07/15/24 Rx Allergies Allergy/AdvReac Type Severity Reaction Status Date / Time No Known Allergies Allergy Verified 07/15/24 07:44 Surgical - Exam Vital Signs Temp Pulse Resp BP Pulse Ox 97.2 F L 98 16 125/60 98 07/15/24 01:04 07/15/24 01:04 07/15/24 01:04 07/15/24 01:04 07/15/24 01:04 CONSTITUTIONAL: Awake and alert, appears comfortable, cooperative, well- developed, well-nourished, no pain, no acute distress EYES: Pupils equal, round, reactive to light, normal ocular movement ENT: Moist mucous membranes without oral lesions present NECK: No masses, no bruits, trachea midline RESPIRATORY: Lungs sounds diminished in the bases bilaterally. Respirations even, nonlabored. Currently on room air with oxygen saturation 94%. Strong cough. No chest wall deformities. No clubbing or cyanosis present CARDIOVASCULAR: S1, S2 present. Regular rate and rhythm, sinus rhythm on telemetry. Palpable peripheral pulses bilaterally. Bilateral lower extremity edema present. No calf pain or tenderness noted GASTROINTESTINAL: Abdomen soft, nontender, nondistended without masses or organomegaly noted. There is no rebound or guarding present. Active bowel sounds present 4 quadrants. GENITOURINARY: Deferred INTEGUMENTARY: Skin is warm and dry, lower extremities with evidence of venous insufficiency NEUROLOGIC: Cranial nerves II through XII intact, normal coordination, no obvious motor or sensory deficits, speech is normal MUSKULOSKELETAL: Able to move all extremities, strength equal bilaterally, normal posture PSYCHIATRIC: Alert and oriented to person place and time, appropriate affect, intact judgment and insight CLINICAL FRAILTY SCORE 3 Results - Labs 07/15/24 01:19 07/15/24 10:12 Abnormal Lab Results - Last 24 Hours (Table) 07/15/24 07/15/2407/15/25 Range/Units 01:19 01:19 01:19 WBC 12.3 H (3.8-10.6) k/uL Neutrophils # 9.5 H (1.3-7.7) k/uL Sodium 136 L (137-145) mmol/L BUN 23 H (9-20) mg/dL Glucose 120 H (74-99) mg/dL Total Bilirubin 1.4 H (0.2-1.3) mg/dL Troponin I 2.080 H* (0.000-0.034) ng/mL Total Protein 8.9 H (6.3-8.2) g/dL TSH 9.100 H (0.465-4.680) mIU/L 07/15/24 07/15/24 07/15/24 Range/Units 05:00 08:10 10:12 WBC (3.8-10.6) k/uL Neutrophils # (1.3-7.7) k/uL Sodium (137-145) mmol/L BUN (9-20) mg/dL Glucose 113 H (74-99) mg/dL Total Bilirubin (0.2-1.3) mg/dL Troponin I 1.690 H* 1.520 H* (0.000-0.034) ng/mL Total Protein (6.3-8.2) g/dL TSH (0.465-4.680) mIU/L Diabetes panel 07/15/24 07/15/24 Range/Units 01:19 10:12 Sodium 136 L 137 (137-145) mmol/L Potassium 4.5 (3.5-5.1) mmol/L Chloride 103 103 (98-107) mmol/L Carbon Dioxide 24 26 (22-30) mmol/L BUN 23 H 18 (9-20) mg/dL Creatinine 0.97 0.79 (0.66-1.25) mg/dL Glucose 120 H 113 H (74-99) mg/dL Calcium 9.4 9.0 (8.4-10.2) mg/dL AST 53 (17-59) U/L ALT 45 (4-49) U/L Alkaline Phosphatase 109 (38-126) U/L Total Protein 8.9 H (6.3-8.2) g/dL Albumin 4.9 (3.5-5.0) g/dL Thyroid panel 07/15/24 Range/Units 01:19 TSH 9.100 H (0.465-4.680) mIU/L Calcium panel 07/15/24 07/15/24 Range/Units 01:19 10:12 Calcium 9.4 9.0 (8.4-10.2) mg/dL Phosphorus 4.4 (2.5-4.5) mg/dL Albumin 4.9 (3.5-5.0) g/dL Pituitary panel 07/15/24 07/15/24 Range/Units 01:19 10:12 Sodium 136 L 137 (137-145) mmol/L Potassium 4.5 (3.5-5.1) mmol/L Chloride 103 103 (98-107) mmol/L Carbon Dioxide 24 26 (22-30) mmol/L BUN 23 H 18 (9-20) mg/dL Creatinine 0.97 0.79 (0.66-1.25) mg/dL Glucose 120 H 113 H (74-99) mg/dL Calcium 9.4 9.0 (8.4-10.2) mg/dL TSH 9.100 H (0.465-4.680) mIU/L Adrenal panel 07/15/24 07/15/24 Range/Units 01:19 10:12 Sodium 136 L 137 (137-145) mmol/L Potassium 4.5 (3.5-5.1) mmol/L Chloride 103 103 (98-107) mmol/L Carbon Dioxide 24 26 (22-30) mmol/L BUN 23 H 18 (9-20) mg/dL Creatinine 0.97 0.79 (0.66-1.25) mg/dL Glucose 120 H 113 H (74-99) mg/dL Calcium 9.4 9.0 (8.4-10.2) mg/dL Total Bilirubin 1.4 H (0.2-1.3) mg/dL AST 53 (17-59) U/L ALT 45 (4-49) U/L Alkaline Phosphatase 109 (38-126) U/L Total Protein 8.9 H (6.3-8.2) g/dL Albumin 4.9 (3.5-5.0) g/dL - Imaging Chest x-ray: report reviewed, image reviewed EKG: image reviewed Assessment and Plan Assessment: Episodes of V. tach this admission, currently on IV amiodarone, was on LifeVest prior to arrival History of coronary artery disease with recent myocardial infarction and PCI to the LAD along with previous PCI to the LAD and RCA Ischemic cardiomyopathy/heart failure with reduced ejection fraction Hypertension Hyperlipidemia, treated, cholesterol 133, LDL 76 Chronic heavy tobacco dependence COPD Chronic EtOH use Syncopal episode in November 2023 Gout Morbid obesity Family history of premature coronary artery disease with father and brother from myocardial infarction at 57 years old Plan: The patient was seen and examined sitting up on a cart in the emergency room in no acute distress. Patient currently denies any chest pain/discomfort/pressure, denies any shortness of breath or any other symptomatology. Heart catheterization films were reviewed last admission with Dr. Jack from cardiothoracic surgery, his recommendations were for outpatient evaluation by Dr. Apodaca, this was discussed at that time with the patient and a follow-up was made for August 06. As patient is now inpatient will review heart catheterization films and patient's history with Dr. Apodaca, further recommendations to follow. Continue to maximize medical therapy with GDMT. Patient was counseled regarding complete smoking cessation. Increase activity as tolerated. Medical management of other comorbidities per internal medicine, cardiology. More recommendations to follow. Thank you for this consult. We will continue to follow along with you and make further recommendations as appropriate. I have personally seen and examined the patient, performed the documentation and the assessment and plan as written. Number of minutes spent on the visit: 30. ION Cast
[2024-07-15] MEDS: HEPARIN SODIUM,PORCINE 5,000 UNIT/ML 1 ML VIAL SQ SCH (16:09)
[2024-07-15] MEDS: ATORVASTATIN 80 MG TAB PO SCH (21:15)
[2024-07-15] MEDS: METOPROLOL TARTRATE 25 MG TAB PO SCH (21:15)
[2024-07-16 04:50] VITALS: RESP 16
[2024-07-16 08:34] LABS: ALT 42 U/L (4-49); AST 27 U/L (17-59); African American GFR (CKD) >90 (>60 ml/min/1.73 sqM); Albumin 4.2 g/dL (3.5-5.0); Alkaline Phosphatase 151 U/L (38-126); Anion Gap 10 mmol/L; Blood Urea Nitrogen 13 mg/dL (9-20); Calcium 9.4 mg/dL (8.4-10.2); Carbon Dioxide 24 mmol/L (22-30); Chloride 103 mmol/L (98-107); Glucose 112 mg/dL (74-99); Non-African American GFR(CKD) >90 (>60 ml/min/1.73 sqM); Phosphorus 3.9 mg/dL (2.5-4.5); Potassium 4.8 mmol/L (3.5-5.1); Sodium 137 mmol/L (137-145); Total Bilirubin 0.9 mg/dL (0.2-1.3); Total Protein 7.2 g/dL (6.3-8.2)
--- NOTE | 2024-07-16 09:08 | P.PN ---
Subjective Progress Note Date: 07/16/24 Principal diagnosis: Episodes of V. tach this admission, treated with IV amiodarone, currently on Mexitil, was on LifeVest prior to arrival. History of coronary artery disease with recent myocardial infarction and PCI to the LAD along with previous PCI to the LAD and RCA, ischemic cardiomyopathy/heart failure with reduced ejection fraction, hypertension, hyperlipidemia, chronic heavy tobacco dependence, COPD, chronic EtOH use, syncopal episode in November 2023, gout, morbid obesity, family history of premature coronary artery disease The patient was seen and examined this morning sitting up in bed on the cardiac stepdown unit in no acute distress. He does state he has no chest pain or shortness of breath although he did have a bout of heartburn this morning after breakfast. States he has been ambulatory to and from the bathroom without any difficulty. IV amiodarone finished yesterday, patient now on Mexitil oral. Dr. Apodaca reviewed heart catheterization films, no indication for emergent surgery, recommends outpatient follow-up. Appointment placed on discharge plan. No other new concerns. Objective - Vital Signs Vital signs: Vital Signs Temp 97.7 F 07/16/24 07:59 Pulse 78 07/16/24 08:12 Resp 16 07/16/24 08:12 BP 119/71 07/16/24 07:59 Pulse Ox 96 07/16/24 07:59 FiO2 Intake & Output 07/15/24 07/16/24 07/16/24 18:59 06:59 18:59 Intake Total 790 Output Total 950 Balance -950 790 Weight 120.9 kg Intake: Intake, IV Titration 250 Amount Amiodarone 450 mg In 250 Dextrose 5% in Water 250 ml @ 0.5 MG/MIN 16.667 mls/hr IV .Q[facility]H [facility] Rx#: [id number] Oral 540 Output: Urine 950 Other: # Voids 1 - Exam CONSTITUTIONAL: Awake and alert, appears comfortable, cooperative, no pain, no acute distress RESPIRATORY: Lungs sounds diminished in the bases bilaterally. Respirations even, nonlabored. Currently on room air with oxygen saturation 97%. Strong cough CARDIOVASCULAR: S1, S2 present. Regular rate and rhythm, sinus rhythm with first-degree AV block, bundle branch block. Palpable peripheral pulses bilaterally. Bilateral lower extremity edema present. No calf pain or tenderness noted GASTROINTESTINAL: Abdomen soft, nontender, nondistended without masses or organomegaly noted. There is no rebound or guarding present. Active bowel sounds present 4 quadrants. GENITOURINARY: Continues to void clear, yellow urine INTEGUMENTARY: Skin is warm and dry, lower extremities with evidence of venous insufficiency NEUROLOGIC: Cranial nerves II through XII intact, normal coordination, no obvious motor or sensory deficits, speech is normal MUSKULOSKELETAL: Able to move all extremities, strength equal bilaterally, normal posture PSYCHIATRIC: Alert and oriented to person place and time, appropriate affect, intact judgment and insight - Allied health notes Allied health notes reviewed: nursing - Labs CBC & Chem 7: 07/15/24 01:19 07/16/24 07:26 Labs: Abnormal Lab Results - Last 24 Hours (Table) 07/15/24 07/16/24 Range/Units 10:12 07:26 Glucose 113 H 112 H (74-99) mg/dL Alkaline Phosphatase 151 H (38-126) U/L Assessment and Plan Assessment: Episodes of V. tach this admission, currently on Mexitil, was on LifeVest prior to arrival History of coronary artery disease with recent myocardial infarction and PCI to the LAD along with previous PCI to the LAD and RCA Ischemic cardiomyopathy/heart failure with reduced ejection fraction Hypertension Hyperlipidemia, treated, cholesterol 133, LDL 76 Chronic heavy tobacco dependence COPD Chronic EtOH use Syncopal episode in November 2023 Gout Morbid obesity Family history of premature coronary artery disease with father and brother from myocardial infarction at 57 years old Plan: Continue current medication therapy Increase activity as tolerated Smoking cessation counseling and education reinforced No indication for emergent surgery, patient may follow-up outpatient, appointment placed on discharge plan There is documentation after heart catheterization that Effient is to continue for 1 year without interruption, patient would have to be off Effient 7 days prior to any surgical intervention Medical management of other comorbidities per internal medicine, cardiology Will continue to see again on an as-needed basis, please call us with any further questions
[2024-07-16 09:18] LABS: Basophils # (A) 0.1 k/uL (0-0.2); Basophils % (A) 1 %; Eosinophils # (A) 0.1 k/uL (0-0.7); Eosinophils % (A) 1 %; HCT 45.1 % (39.0-53.0); HGB 14.9 gm/dL (13.0-17.5); Lymphocytes # (A) 1.9 k/uL (1.0-4.8); Lymphocytes % (A) 17 %; MCH 33.3 pg (25.0-35.0); MCV 100.6 fL (80.0-100.0); Monocytes # (A) 0.6 k/uL (0-1.0); Monocytes % (A) 6 %; Neutrophils % (A) 74 %; Platelet Count 267 k/uL (150-450); RBC 4.49 m/uL (4.30-5.90); RDW 12.8 % (11.5-15.5); WBC 10.8 k/uL (3.8-10.6)
--- NOTE | 2024-07-16 11:03 | CA ---
Transthoracic Echo Report Name: Tang Pichardo Age: 69 Gender: M : 1955 Exam Date: 07/15/2024 14:58 Exam Location: [facility] Ht (in): 69 Wt (lb): 270 Ordering Physician: Kimberly Skelton Attending/Referring Phys: Communications Officer Christina Berkowitz RDCS Procedure CPT: Indications: LVF Cardiac Hx: limited study Technical Quality: Technically difficult study Contrast 1: Definity Total Dose (mL): 2 Contrast 2: Total Dose (mL): MEASUREMENTS (Male / Female) Normal Values 2D ECHO LV Diastolic Volume MOD BP 215.2 cm??? 67 - 155 / 56 - 104 cm??? LV Systolic Volume MOD BP 141.2 cm??? 22 - 58 / 19 - 49 cm??? LV Ejection Fraction MOD BP 34.4 % >= 55 % LV Cardiac Index MOD BP 2221.6 cm???/min???m??? LV Diastolic Volume MOD 4C 217.3 cm??? LV Systolic Volume MOD 4C 146.2 cm??? LV Ejection Fraction MOD 4C 32.7 % LV Cardiac Index MOD 4C 2135.0 cm???/min???m??? LV Diastolic Length 4C 9.7 cm LV Systolic Length 4C 8.8 cm LV Diastolic Volume MOD 2C 207.7 cm??? LV Systolic Volume MOD 2C 137.0 cm??? LV Ejection Fraction MOD 2C 34.1 % LV Cardiac Index MOD 2C 2124.6 cm???/min???m??? LV Diastolic Length 2C 9.4 cm LV Systolic Length 2C 8.8 cm FINDINGS Left Ventricle Left ventricular ejection fraction is estimated at 25 to 30%. Anteroapical, anteroseptal and anterolateral severe hypokinesis. Right Ventricle Right Atrium Left Atrium Mitral Valve Aortic Valve Tricuspid Valve Pulmonic Valve Pericardium No pericardial or pleural effusion. Aorta CONCLUSIONS Limited echo. Technically difficult study. Definity ECHO contrast used for improved visualization of the endocardial borders (inadequate visualization of two or more contiguous segments). Severely impaired left ventricular systolic function with segmental wall motion abnormality Previewed by: Dr. Yvette Torres MD (Electronically Signed) Final Date: 16 July 2024 11:02
[2024-07-16] MEDS: AMIODARONE 200 MG TAB PO SCH (11:46)
--- NOTE | 2024-07-16 15:01 | P.PN ---
Subjective Progress Note Date: 07/16/24 Reason for Consult (text): Ventricular tachycardia History of present illness: This is a 69-year-old male patient of Dr. Rosa Patel with past medical history of hypertension, dyslipidemia, coronary artery disease with multivessel CAD, ischemic cardiomyopathy with EF 35%, chronic systolic heart failure. We have been asked to evaluate the patient for ventricular tachycardia. Patient had a recent hospitalization at the beginning of this month and underwent cardiac catheterization on 07/10 finding three-vessel coronary artery disease with chronically occluded right coronary artery what appears to be acute occlusion to the distal stent of the LAD and chronic 70% to 80% stenosis involving the circumflex. Dr. Torres performed stent to the proximal LAD. Patient was evaluated by cardiothoracic surgery and options were provided to the patient he was to have a follow-up appointment with Dr. Apodaca as an outpatient. We will add a consult for cardiothoracic surgery to reevaluate. Patient has a LifeVest that was placed prior to his discharge from the hospital. He states he noticed that 2 lights came on and he was pushing the button so that it would reset. He states this happened about 10 times. He was not shocked by the vest. The vest is currently off. Patient denies having chest pain. No shortness of breath. Blood pressure 101/51, heart rate 67, pulse ox 97% on room air. Patient is seen today in the emergency center waiting for a bed on the cardiac stepdown unit. Patient has been started on amiodarone drip. Patient has had multiple runs of V. tach. -EKG: #1 sinus rhythm #2 V. tach with run of 15 beats -Chest x-ray: Cardiac silhouette is mildly enlarged. No overt edema or acute focal infiltrate. -Laboratory studies: WBC 12.3, hemoglobin 14.9. Sodium 136, potassium not calculated, BUN 23 creatinine 0.97. Troponins 2.08, 1.69. proBNP 3290. TSH 9.1 -Home cardiac medications: Aspirin 81 mg daily, atorvastatin 80 mg at bedtime, lisinopril 5 mg twice daily, metoprolol tartrate 25 mg twice daily, Effient 10 mg daily, spironolactone 25 mg daily. -Echocardiogram performed on 07/10/2024: EF 30%, apical hypokinesia. Calcified mitral valve with mild mitral stenosis, mild mitral regurgitation. 07/16/24 Patient seen and examined. Patient is having much less ectopy on telemetry. He has been on amiodarone drip and yesterday started on Mexitil. Patient is status post magnesium replacement. Discussed with the patient to have family bring his LifeVest in from home. Plan will be to continue to monitor him overnight and as long as he is having less ectopy, patient will be able to be discharged tomorrow. We did ask for cardiothoracic surgery to see the patient regarding CABG which was discussed at his last hospitalization. No urgent plans for CABG at this time and patient will follow-up as scheduled in August. Physical examination: Gen: This is a 69-year-old male appears to be in no acute distress. VS: reviewed HEENT: Head is atraumatic, normocephalic. Pupils equal, round. Sclerae is anicteric. NECK: Supple. No JVD. LUNGS: Clear to auscultation. No wheezes or rhonchi. No intercostal retractions. HEART: Regular rate and rhythm. No murmur. ABDOMEN: Soft No tenderness. EXTREMITIES: No pedal edema. No calf tenderness. NEUROLOGICAL: Patient is awake, alert and oriented x3. Assessment: Frequent episodes of ventricular tachycardia Coronary artery disease status post stent to the LAD on 07/10 Known three-vessel cardiac disease evaluated by cardiothoracic surgery for CABG Hypertension Dyslipidemia Ischemic cardiomyopathy with LifeVest Chronic systolic heart failure Elevated troponins due to recent NSTEMI Plan: Continue me patient's home cardiac medications with the following changes Continue lisinopril 2.5 mg at bedtime and hold for systolic blood pressure less than 100 Discontinue amiodarone drip and start oral 200 mg twice daily Continue patient on Mexitil 150 mg every 8 hours Patient to have family bring in LifeVest Obtain limited echocardiogram to evaluate EF report Consult cardiothoracic surgery regarding CABG appreciated Plan to continue telemetry monitoring overnight and discharge home tomorrow. Nurse practitioner note has been reviewed, I agree with documented findings and plan of care. Patient was seen and examined. Objective - Vital Signs Vital signs: Vital Signs Temp 97.7 F 07/16/24 07:59 Pulse 78 07/16/24 08:12 Resp 16 07/16/24 08:12 BP 119/71 07/16/24 07:59 Pulse Ox 96 07/16/24 07:59 FiO2 Intake & Output 07/15/24 07/16/24 07/16/24 18:59 06:59 18:59 Intake Total 790 180 Output Total 950 Balance -950 790 180 Weight 120.9 kg Intake: Intake, IV Titration 250 Amount Amiodarone 450 mg In 250 Dextrose 5% in Water 250 ml @ 0.5 MG/MIN 16.667 mls/hr IV .Q15H [facility] Rx#: [id number] Oral 540 180 Output: Urine 950 Other: # Voids 1 1 - Labs CBC & Chem 7: 07/16/24 07:26 07/16/24 07:26 Labs: Abnormal Lab Results - Last 24 Hours (Table) 07/15/24 07/16/24 07/16/24 Range/Units 10:12 07:26 07:26 WBC 10.8 H (3.8-10.6) k/uL MCV 100.6 H (80.0-100.0) fL Neutrophils # 8.0 H (1.3-7.7) k/uL Glucose 113 H 112 H (74-99) mg/dL Alkaline Phosphatase 151 H (38-126) U/L
--- NOTE | 2024-07-16 15:54 | P.PN ---
Subjective Progress Note Date: 07/16/24 Patient pleasant 69-year-old male with known history of severe cardiomyopathy EF of around 30% was discharged home on a LifeVest. Patient was dizzy and while LifeVest was giving notifications at it was about to shock because of which patient turned of the LifeVest multiple times and took of the battery and came to the hospital. Patient denied any chest pain at this time patient [place] catheterization on 10 July this month which showed left main 30 to 40% stenosis LAD stent occlusion OM 70% stenosis echocardiogram showed 30 to 35% ejection fraction patient had an elevated troponin of 1.69 and 1.52. 07/16/2024 Patient is evaluated in follow-up on the medical floor. Patient has no complaints of chest pain or shortness of breath at this time. He was reevaluated cardiothoracic surgery and the plan remains for outpatient evaluation for coronary artery bypass grafting. Patient does continue on dual antiplatelet therapy. Patient received IV amiodarone drip and was started on oral Mexitil. His will bring up his LifeVest tomorrow and reeducation will be supplied. Repeat echocardiogram reveals an ejection fraction of 25 to 30% severely impaired left ventricular systolic function with segmental wall motion abnormality. Blood cell count of 10.8, MCV of 100.6, sodium level of 137, potassium 4.8, BUN of 13 creatinine 0.74. Review of Systems Constitutional: Denied any fatigue denied any fever. Cardio vascular: denied any chest pain, palpitations Gastrointestinal: denied any nausea, vomiting, diarrhea Pulmonary: Denied any shortness of breath cough Neurologic denied any new focal deficits All inpatient medications were reviewed and appropriate changes in these medications as dictated in the interval history and assessment and plan. PHYSICAL EXAMINATION: GENERAL: The patient is alert and oriented x3, not in any acute distress. Well developed, well nourished. HEENT: Pupils are round and equally reacting to light. EOMI. No scleral icterus. No conjunctival pallor. Normocephalic, atraumatic. No pharyngeal erythema. No thyromegaly. CARDIOVASCULAR: S1 and S2 present. No murmurs, rubs, or gallops. PULMONARY: Chest is clear to auscultation, no wheezing or crackles. ABDOMEN: Soft, nontender, nondistended, normoactive bowel sounds. No palpable organomegaly. MUSCULOSKELETAL: No joint swelling or deformity. EXTREMITIES: No cyanosis, clubbing, or pedal edema. NEUROLOGICAL: Gross neurological examination did not reveal any focal deficits. SKIN: No rashes. Assessment and plan -Episodes of V. tach, improved patient does continue on IV amiodarone and will transition to oral amiodarone today. Patient has been started on oral Mexitil 3 times a day -Elevated troponins can be from the recent cardiac catheterization -Congestive heart failure chronic systolic function without any acute exacerbation patient will be resumed on home medications -Coronary artery disease with stenting to the LAD on July 10 Patient has known three-vessel coronary artery disease and cardiothoracic recommending outpatient follow-up for evaluation for coronary artery bypass gra fting -Hyperlipidemia -Ischemic cardiomyopathy with LifeVest DVT prophylaxis: Subcutaneous heparin Full code Patient was monitored on cardiac telemetry overnight. If patient needs to have decreased amounts of ectopy on telemetry he will be discharged home in the next 24 hours. Cardiology and cardiothoracic surgery following. No plans for urgent coronary artery bypass grafting at this time. Continue on oral amiodarone and oral mexiletine. The impression and plan of care has been dictated by Otilia Vela, Nurse Practitioner as directed. Dr. Wade MD I have performed a history and physical examination and medical decision making of this patient, discussed the same with the dictator, and agree with the dictators assessment and plan as written, documented as a scribe. Based on total visit time, I have performed more than 50% of this visit. Objective - Vital Signs Vital signs: Vital Signs Temp 97.7 F 07/16/24 07:59 Pulse 78 07/16/24 08:12 Resp 16 07/16/24 08:12 BP 119/71 07/16/24 07:59 Pulse Ox 96 07/16/24 07:59 FiO2 Intake & Output 07/15/24 07/16/24 07/16/24 18:59 06:59 18:59 Intake Total 790 180 Output Total 950 Balance -950 790 180 Weight 120.9 kg Intake: Intake, IV Titration 250 Amount Amiodarone 450 mg In 250 Dextrose 5% in Water 250 ml @ 0.5 MG/MIN 16.667 mls/hr IV .Q15H FABY Rx#: [id number] Oral 540 180 Output: Urine 950 Other: # Voids 1 1 - Labs CBC & Chem 7: 07/16/24 07:26 01/16/25 07:26 Labs: Abnormal Lab Results - Last 24 Hours (Table) 07/15/24 07/16/24 Range/Units 10:12 07:26 Glucose 113 H 112 H (74-99) mg/dL Alkaline Phosphatase 151 H (38-126) U/L Assessment and Plan Time with Patient: Less than 30
[2024-07-16 21:12] VITALS: TEMP 98.1
[2024-07-17 11:08] VITALS: BP 97/61; PULSE 66
--- NOTE | 2024-07-17 11:08 | P.PN ---
Subjective Progress Note Date: 07/17/24 Reason for Consult (text): Ventricular tachycardia History of present illness: This is a 69-year-old male patient of Dr. Rosa Patel with past medical history of hypertension, dyslipidemia, coronary artery disease with multivessel CAD, ischemic cardiomyopathy with EF 35%, chronic systolic heart failure. We have been asked to evaluate the patient for ventricular tachycardia. Patient had a recent hospitalization at the beginning of this month and underwent cardiac catheterization on 07/10 finding three-vessel coronary artery disease with chronically occluded right coronary artery what appears to be acute occlusion to the distal stent of the LAD and chronic 70% to 80% stenosis involving the circumflex. Dr. Torres performed stent to the proximal LAD. Patient was evaluated by cardiothoracic surgery and options were provided to the patient he was to have a follow-up appointment with Dr. Apodaca as an outpatient. We will add a consult for cardiothoracic surgery to reevaluate. Patient has a LifeVest that was placed prior to his discharge from the hospital. He states he noticed that 2 lights came on and he was pushing the button so that it would reset. He states this happened about 10 times. He was not shocked by the vest. The vest is currently off. Patient denies having chest pain. No shortness of breath. Blood pressure 101/51, heart rate 67, pulse ox 97% on room air. Patient is seen today in the emergency center waiting for a bed on the cardiac stepdown unit. Patient has been started on amiodarone drip. Patient has had multiple runs of V. tach. -EKG: #1 sinus rhythm #2 V. tach with run of 15 beats -Chest x-ray: Cardiac silhouette is mildly enlarged. No overt edema or acute focal infiltrate. -Laboratory studies: WBC 12.3, hemoglobin 14.9. Sodium 136, potassium not calculated, BUN 23 creatinine 0.97. Troponins 2.08, 1.69. proBNP 3290. TSH 9.1 -Home cardiac medications: Aspirin 81 mg daily, atorvastatin 80 mg at bedtime, lisinopril 5 mg twice daily, metoprolol tartrate 25 mg twice daily, Effient 10 mg daily, spironolactone 25 mg daily. -Echocardiogram performed on 07/10/2024: EF 30%, apical hypokinesia. Calcified mitral valve with mild mitral stenosis, mild mitral regurgitation. 07/16/24 Patient seen and examined. Patient is having much less ectopy on telemetry. He has been on amiodarone drip and yesterday started on Mexitil. Patient is status post magnesium replacement. Discussed with the patient to have family bring his LifeVest in from home. Plan will be to continue to monitor him overnight and as long as he is having less ectopy, patient will be able to be discharged tomorrow. We did ask for cardiothoracic surgery to see the patient regarding CABG which was discussed at his last hospitalization. No urgent plans for CABG at this time and patient will follow-up as scheduled in August. 07/17 Patient is having no ventricular ectopy at this time. Patient states that his family will be bringing in his LifeVest at noon today. Patient has been maintained on amiodarone and Mexitil which will be continued at discharge. Blood pressure 110/67, heart rate in the 60s, pulse ox 97% on room air. No repeat blood work this morning. Limited echocardiogram reveals technically difficult study. Severely impaired left ventricular systolic function with segmental wall motion abnormality, EF 25 to 30%. Physical examination: Gen: This is a 69-year-old male appears to be in no acute distress. VS: reviewed HEENT: Head is atraumatic, normocephalic. Pupils equal, round. Sclerae is anicteric. NECK: Supple. No JVD. LUNGS: Clear to auscultation. No wheezes or rhonchi. No intercostal retractio ns. HEART: Regular rate and rhythm. No murmur. ABDOMEN: Soft No tenderness. EXTREMITIES: No pedal edema. No calf tenderness. NEUROLOGICAL: Patient is awake, alert and oriented x3. Assessment: Frequent episodes of nonsustained ventricular tachycardia Coronary artery disease status post stent to the LAD on 07/10 Known three-vessel cardiac disease evaluated by cardiothoracic surgery for CABG Hypertension Dyslipidemia Ischemic cardiomyopathy with LifeVest Chronic systolic heart failure Elevated troponins due to recent NSTEMI Plan: Continue me patient's home cardiac medications with the following changes Continue lisinopril 2.5 mg at bedtime, amiodarone 200 mg twice daily, Mexitil 150 mg every 8 hours Patient to have family bring in LifeVest Patient is cleared for discharge from cardiology perspective. Prescriptions for his new cardiac medications have been sent to his pharmacy. Patient will follow-up with Dr. Rosa Patel in 1 to 2 weeks. Nurse practitioner note has been reviewed, I agree with documented findings and plan of care. Patient was seen and examined. Objective - Vital Signs Vital signs: Vital Signs Temp 98.1 F 07/17/24 08:43 Pulse 63 07/17/24 08:50 Resp 16 07/17/24 08:50 BP 110/67 07/17/24 08:43 Pulse Ox 97 07/17/24 08:43 FiO2 Intake & Output 07/16/24 07/17/24 07/17/24 18:59 06:59 18:59 Intake Total 540 540 240 Balance 540 540 240 Weight 120.4 kg Intake: Oral 540 540 240 Other: # Voids 1 1 - Labs CBC & Chem 7: 07/16/24 07:26 07/16/24 07:26
== END 2024-07-17 14:53 | disposition home or self-care (01) | DRG 281 ==
LOC: EC 00:51 → 3SCARD 01:32
PROVIDERS: ADMIT Hospitalist; ATTEND Hospitalist
DX: I47.20 Ventricular tachycardia, unspecified (principal); I50.22 Chronic systolic (congestive) heart failure; I21.4 Non-ST elevation (NSTEMI) myocardial infarction; E66.01 Morbid (severe) obesity due to excess calories; E78.5 Hyperlipidemia, unspecified; Z68.39 Body mass index [BMI] 39.0-39.9, adult; M10.9 Gout, unspecified; F17.210 Nicotine dependence, cigarettes, uncomplicated; I11.0 Hypertensive heart disease with heart failure; I25.10 Atherosclerotic heart disease of native coronary artery without angina pectoris; I25.5 Ischemic cardiomyopathy; J44.9 Chronic obstructive pulmonary disease, unspecified; Z79.82 Long term (current) use of aspirin; Z79.84 Long term (current) use of oral hypoglycemic drugs; Z79.899 Other long term (current) drug therapy; Z95.5 Presence of coronary angioplasty implant and graft; Z79.02 Long term (current) use of antithrombotics/antiplatelets; Z82.49 Family history of ischemic heart disease and other diseases of the circulatory system
CPT/HCPCS: 36415; 71045; 80048; 80053; 83605; 83735; 83880; 84100; 84439; 84443; 84484; 85025; 85610; 85730; 93005; 93308; 96365; 96367; 96372; 99291

== ENCOUNTER 2024-07-30 15:41 | Day surgery (SDC) | payer MEDICARE ==
[2024-07-28 09:22] VITALS: BMI 39.5
[2024-07-30] MEDS: SODIUM CHLORIDE 0.9% 1,000 ML IV SCH ×2 (16:10→16:11)
[2024-07-30] MEDS: LACTATED RINGERS 1,000 ML IV SCH (16:10)
[2024-07-30] MEDS ORDERED: VANCOMYCIN IV PER PHARMACY 1 EACH MISC MISCELLANE PRN (16:24)
[2024-07-30] MEDS: VANCOMYCIN 1,750 MG in SODIUM CHLORIDE 0.9% 500 ML 500 ML IVPB PRN (16:36)
[2024-07-30] MEDS: IV FLUID CONTINUATION 1,000 ML IV ONE (16:42)
[2024-07-30 16:44] LABS: African American GFR (CKD) >90 (>60 ml/min/1.73 sqM); Anion Gap 12 mmol/L; Blood Urea Nitrogen 16 mg/dL (9-20); Calcium 9.3 mg/dL (8.4-10.2); Carbon Dioxide 24 mmol/L (22-30); Chloride 99 mmol/L (98-107); Glucose 102 mg/dL (74-99); Non-African American GFR(CKD) 87 (>60 ml/min/1.73 sqM); Sodium 135 mmol/L (137-145)
[2024-07-30] MEDS ORDERED: diphenhydrAMINE 50 MG/ML 1 ML VIAL ONE (18:18)
[2024-07-30] MEDS ORDERED: fentaNYL (PF) 50 MCG/ML 2 ML AMP ONE (18:18)
[2024-07-30] MEDS ORDERED: MIDAZOLAM 2 MG/2 ML VIAL ONE (18:18)
[2024-07-30] MEDS: ROPIVACAINE 5 MG/ML 30 ML VIAL MISCELLANE ONE (18:55)
[2024-07-30] MEDS: LIDOCAINE 1% INJ 10MG/ML (20 ML MDV) SQ ONE (18:55)
[2024-07-30] MEDS: ceFAZolin 3 GM in SODIUM CHLORIDE 0.9% 100 ML IVPB PRN (18:56)
[2024-07-30] MEDS: IOPAMIDOL-370 100ML BTL INJ ONE (18:58)
[2024-07-30] MEDS ORDERED: allopurinoL 100 MG TAB PO PRN (19:35)
[2024-07-30] MEDS: ceFAZolin 1,000 MG in SODIUM CHLORIDE 0.9% IRRIG BTL 250 ML IRRIGATION ONE (20:01)
--- NOTE | 2024-07-30 20:09 | P.EPPROC ---
- EP Procedure Note Electrophysiology Procedure Note: Diagnosis Cardiomyopathy, chronic, ischemic of longstanding since 2011 In 2012 his left ejection fraction was 40%, in 2016 there was apical hypokinesis ejection fraction 35% and in 2017 the echo showed ejection fraction of 35% with apical akinesis Old inferior wall TN and old anterior wall TN status post stenting to the RCA in the past and status post stenting to the LAD in the past Congestive heart failure, systolic class II On guideline directed medical treatment guideline directed Recently presented to the hospital with a acute myocardial infarction and occlusion of the proximal LAD just proximal to the previous stent and he underwent coronary stenting. 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 He was readmitted with sustained monomorphic VT and was started on amiodarone and mexiletine and discharged home He continued to have episodes of sustained monomorphic VT, symptomatic with presyncope First-degree AV block on metoprolol and amiodarone QRS is narrow. Single- chamber ICD implanted to avoid dual-chamber pacing to avoid inadvertent RV pacing and further reduction in LV systolic function. Metoprolol changed to carvedilol Indication #90 on the 2024 appropriate use criteria comment from [facility]. Patient is post acute TN less than 40 days with a pre-existing chronic cardiomyopathy of longstanding along with heart failure and prior inferior wall and anterior apical wall TN, on guideline directed medical treatment Indication #66 in the 2012 appropriate use criteria document: Sustained monomorphic VT, CAD and prior TN with a left ventricular ejection fraction of less than 35%, appropriate to score equals A9. Table 1.9, page 1333 Procedure: Single ICD implantation for management of risk of sudden cardiac /secondary prevention since the patient has been experiencing recurrent sustained monomorphic VT despite medical treatment and revascularization of the LAD greater than 2 weeks back Topology Professor: Dr. Escudero Result: Single chamber ICD implantation, RV ICD lead: Medtronic model #6935, M62 single coil lead screw-in. Implanted in the RV apex. R waves 19 mV pacing impedance 665 ohms high-voltage impedance 65 ohms and pacing threshold 0.9 V at 0.4 ms ICD generator: ICD cobalt XT VR MRI D4 Procedure details: Patient was brought to the EP lab in a fasting state. Written informed consent was obtained prior to the procedure. Options, pros and cons, benefits and risks and complications discussed with patient in detail prior to the procedure (shared decision making document, from [place] given). Importance of continuing medical treatment emphasized. Alternatives discussed. Patient would like to proceed with ICD implant. Left upper extremity venogram performed. 15 mL IV dye injected in the left arm. Patent axillary/subclavian vein The left pectoral area was prepped and draped as a protocol. IV antibiotics administered 1% lidocaine was used for local anesthesia. A 4 cm incision was made parallel to the deltopectoral groove, about 1.5 cm medial to it. The incision was carried down to the level of the pectoralis muscle and the subfascial pocket was made. Hemostasis was assured. The axillary vein access was obtained. Appropriately sized venous sheath was placed. ICD lead implanted in the right ventricle and screwed in. ICD lead tested for threshold, sensing, impedances and tested with high output pacing for diaphragmatic stimulation Lead secured to the underlying transverse muscle after removing sheaths . Pocket irrigated with antibiotic solution Leads connected to the ICD generator. Wound closed in 3 layers and dressed per protocol ICD was interrogated and programmed. Appropriate pacing parameters, antitachycardia therapies with antitachycardia pacing cardioversion defibrillations programmed. Patient tolerated the procedure well without any acute complications. See scanned device report in EMR for lead details Plan Switch to carvedilol from metoprolol Reduce dose of amiodarone Continue other guideline directed medical treatment and mexiletine Ischemic VT ablation after 6 to 8 weeks
[2024-07-30] MEDS: ATORVASTATIN 80 MG TAB PO SCH (20:53)
[2024-07-30] MEDS: AMIODARONE 200 MG TAB PO SCH (20:53)
[2024-07-30] MEDS: ACETAMINOPHEN IV (For NPO) 1,000 MG in EMPTY BAG 1 BAG IVPB ONE (20:54)
[2024-07-30] MEDS: MEXILETINE 150 MG CAP PO SCH (23:39)
[2024-07-31] MEDS: ACETAMINOPHEN TAB 325 MG TAB PO PRN (00:37)
[2024-07-31 00:45] VITALS: RESP 17
[2024-07-31] MEDS: carvediloL 6.25 MG TAB PO SCH (06:33)
[2024-07-31 06:37] VITALS: BP 110/60; PULSE 61; TEMP 97.8
--- NOTE | 2024-07-31 08:01 | XR ---
EXAMINATION TYPE: XR chest 2V DATE OF EXAM: 07/31/2024 7:56 AM COMPARISON: Chest radiographs from 07/15/2024, 07/10/2024, CT chest 07/11/2024 TECHNIQUE: XR chest 2V Frontal and lateral views of the chest. CLINICAL INDICATION:Male, 69 years old with history of Lead placement check; FINDINGS: Lungs/Pleura: No evidence of focal consolidation or pneumothorax. Blunting of the costophrenic angles is present. Pulmonary vascularity: Unremarkable. Heart/mediastinum: Cardiomediastinal silhouette is enlarged and stable. Atherosclerotic calcificatio ns are seen in the aorta. Single-lead cardiac conduction device overlying the left hemithorax with le ad projecting over the right ventricle. Musculoskeletal: No acute osseous pathology. DISH of the thoracic spine. IMPRESSION: 1. Interval placement of left chest wall cardiac device with lead terminating in the right ventricle . 2. Trace bilateral pleural effusions. [facility], , 07/31/2024 7:58 AM
[2024-07-31] MEDS: PRASUGREL 10 MG TAB PO SCH (09:19)
[2024-07-31] MEDS: SPIRONOLACTONE 25 MG TAB PO SCH (09:19)
[2024-07-31] MEDS: ASPIRIN 81 MG PO SCH (09:19)
--- NOTE | 2024-08-04 15:22 | P.DS ---
Providers Attending physician: Malvin Escudero Primary care physician: [facility] Course: Patient is doing well postprocedure. The ICD site is healed well He underwent single-chamber ICD implantation for management of risk of future sudden cardiac . He has known ischemic cardiomyopathy with recurrent ventricular tachycardia associated with presyncope This is sustained monomorphic recurrent tachycardia Left ventricle ejection fraction 35% with apical akinesis On examination heart sounds are normal Breath sounds are clear ICD site is healed well Chest x-ray is within normal limits Device interrogation is within normal limits Impression Chronic ischemic cardiomyopathy ejection fraction of 35% with apical akinesis old [place] CHF class II Sustained monomorphic VT, recurrent Status post single-chamber ICD implantation Suggest Switch to carvedilol. Stop metoprolol. Continue other heart failure medications Reduce the dose of amiodarone. Continue mexiletine I would recommend ablation for ischemic VT after 2 months Continue guideline directed medical treatment Patient Condition at Discharge: Fair Plan - Discharge Summary Discharge Rx Participant: No New Discharge Prescriptions: New RX: Amiodarone [Cordarone] 200 mg PO DAILY #90 tab RX: carvediloL [Coreg] 6.25 mg PO BID #180 tablet Continue RX: allopurinoL [Zyloprim] 100 mg PO DAILY PRN PRN Reason: GOUT FLARE RX: Atorvastatin [Lipitor] 80 mg PO HS #30 tab RX: lisinopriL [Zestril] 2.5 mg PO HS #30 tab RX: Spironolactone [Aldactone] 25 mg PO DAILY RX: Prasugrel [Effient] 10 mg PO DAILY #30 tab RX: Aspirin EC [Ecotrin Low Dose] 81 mg PO DAILY #30 tab RX: Mexiletine [Mexitil] 150 mg PO Q8HR #90 capsule Discontinued RX: Metoprolol Tartrate [Lopressor] 50 mg PO BID RX: Amiodarone [Cordarone] 200 mg PO BID #60 tab Discharge Medication List RX: Spironolactone [Aldactone] 25 mg PO DAILY 07/10/24 [History] RX: allopurinoL [Zyloprim] 100 mg PO DAILY PRN 07/10/24 [History] RX: Aspirin EC [Ecotrin Low Dose] 81 mg PO DAILY #30 tab 07/12/24 [Rx] RX: Atorvastatin [Lipitor] 80 mg PO HS #30 tab 07/12/24 [Rx] RX: Prasugrel [Effient] 10 mg PO DAILY #30 tab 07/12/24 [Rx] RX: Mexiletine [Mexitil] 150 mg PO Q8HR #90 capsule 07/17/24 [Rx] RX: lisinopriL [Zestril] 2.5 mg PO HS #30 tab 07/17/24 [Rx] RX: Amiodarone [Cordarone] 200 mg PO DAILY #90 tab 07/30/24 [Rx] RX: carvediloL [Coreg] 6.25 mg PO BID #180 tablet 07/30/24 [Rx] Follow up Appointment(s)/Referral(s): Malvin Escudero MD [STAFF PHYSICIAN] - 08/06/24 11:00 am (FOLLOW UP APPOINTMENT IS MADE WITH THE DEVICE CLINIC. ) Activity/Diet/Wound Care/Special Instructions: PATIENT EDUCATION MATERIAL Instructions following a heart rhythm device implant. 1. Keep dressing DRY for 5 DAYS. You may cover the area with Saran or Cling Wrap, prior to a shower. 2. The dressing will be removed in the Device Clinic at [facility]. Absorbable sutures were used to close the wound. 3. Avoid raising the left arm above the shoulder level. 4 week restriction 4. Avoid arm movements, like backscratching, rubbing the head, or pulling on a cord. 4 weeks restriction 5. Gentle range of motion movements of the shoulder, closest to the incision should be performed to avoid a frozen shoulder. (Pendulum exercises of the shoulder) 6. The opposite arm may be used freely. 7. Avoid driving for 7 days. 8. Avoid activities such as golfing, swimming, weed whacking, lifting more than 10 pounds weight, bowling, gymnastics and weight training/lifting. (6 weeks restriction) 9. Activities such as wood chopping with an axe, pull-ups in the gymnasium, power lifting, arc-welding, being close to home induction cooktops will always be a problem. 10. Arm sling is only a reminder not to raise the arm above the head. You do not need to keep the arm completely immobilized. Your free to move the arm and use it and for normal activities. In case of any problems, please call [facility] [place], @ [phone], Attention: Device Clinic Device clinic follow-up in 5 days Follow-up with primary dredge pumper in 2-3 months Location changes Stop metoprolol Switch to carvedilol 6.25 mg twice daily Reduce amiodarone to 200 mg once daily After 2 weeks, approximately on 15 August, reduce amiodarone to 100 mg p.o. daily Discharge Disposition: HOME SELF-CARE
== END 2024-07-31 10:17 | disposition home or self-care (01) ==
LOC: CATHEP 15:41 → 6NMEDSUR 19:27 → CATHEP 07-31 10:17
PROVIDERS: ATTEND Internal Medicine Clinical Cardiac Electrophysiology
DX: I25.5 Ischemic cardiomyopathy (principal); I11.0 Hypertensive heart disease with heart failure; I50.22 Chronic systolic (congestive) heart failure; I47.29 Other ventricular tachycardia; I25.10 Atherosclerotic heart disease of native coronary artery without angina pectoris; I25.82 Chronic total occlusion of coronary artery; I25.2 Old myocardial infarction; Z95.5 Presence of coronary angioplasty implant and graft; E78.5 Hyperlipidemia, unspecified; I44.0 Atrioventricular block, first degree; I70.0 Atherosclerosis of aorta; F17.210 Nicotine dependence, cigarettes, uncomplicated; Z79.82 Long term (current) use of aspirin; Z79.02 Long term (current) use of antithrombotics/antiplatelets; Z79.899 Other long term (current) drug therapy; Z82.49 Family history of ischemic heart disease and other diseases of the circulatory system
CPT/HCPCS: 33249; 80048; 71046; C1722; C1892; C1895; C1769; J2250; J3370; J1200; J0690; J2003; J3010; J2795; Q9967

== ENCOUNTER → 2024-10-06 | Outpatient (CLI) | payer MEDICARE ==
[2024-10-06 15:28] LABS: Blood Urea Nitrogen 15.1 mg/dL (9.0-27.0); Carbon Dioxide 25.9 mmol/L (21.6-31.8); Chloride 104 mmol/L (96-109); Potassium 4.8 mmol/L (3.5-5.5); Sodium 140 mmol/L (135-145)
[2024-10-06 15:32] LABS: HGB 13.2 g/dL (13.0-17.0); MCH 31.9 pg (27.0-32.0); MCHC 32.2 g/dL (32.0-37.0); Mean Platelet Volume 10.1 FL (9.5-12.2); NRBC Per 100 WBC 0 X 10*3/uL (0.00-0.01); Platelet Count 268 X 10*3/uL (140-440); RBC 4.14 X 10*6/uL (4.40-5.60); WBC 9.33 X 10*3/uL (4.50-10.00)
== END | disposition home or self-care (01) ==
LOC: LABPAT 11:12
PROVIDERS: ATTEND Internal Medicine Clinical Cardiac Electrophysiology
DX: Z01.812 Encounter for preprocedural laboratory examination (principal); I47.20 Ventricular tachycardia, unspecified
CPT/HCPCS: 80051; 82565; 84520; 85027

== ENCOUNTER 2024-10-13 09:16 | Day surgery (SDC) | payer MEDICARE ==
[2024-10-09 10:32] VITALS: BMI 38.0
[~2024-10-13 09:16] MED LIST: SODIUM CHLORIDE 0.9% 1,000 ML IV SCH
[2024-10-13] MEDS: IV FLUID CONTINUATION 1,000 ML IV ONE (09:40)
[2024-10-13] MEDS ORDERED: PROTAMINE SULFATE 10 MG/ML 5 ML VIAL ONE (10:36)
[2024-10-13] MEDS ORDERED: diphenhydrAMINE 50 MG/ML 1 ML VIAL ONE (10:36)
[2024-10-13] MEDS ORDERED: KETAMINE HCL IN 0.9 % NACL 50 MG/5 ML SYRINGE ONE (10:36)
[2024-10-13] MEDS ORDERED: PROPOFOL 10 MG/ML 20 ML VIAL IV ONE (10:36)
[2024-10-13] MEDS ORDERED: PHENYLEPHRINE-0.9% NACL SYG 1,000 MCG/10 ML SYRINGE ONE (10:36)
[2024-10-13] MEDS ORDERED: ePHEDrine 50 MG/ML 1 ML VIAL ONE (10:36)
[2024-10-13] MEDS ORDERED: fentaNYL (PF) 50 MCG/ML 2 ML AMP ONE (10:36)
[2024-10-13] MEDS ORDERED: MIDAZOLAM 2 MG/2 ML VIAL ONE (10:36)
[2024-10-13] MEDS ORDERED: FUROSEMIDE 10 MG/ML 2 ML VIAL ONE (10:36)
[2024-10-13] MEDS: ceFAZolin 2 GM in DEXTROSE 5% IN WATER 50 ML IVPB ONE (10:58)
[2024-10-13] MEDS: HEPARIN SODIUM (1,000 UNIT/ML) 1,000 UNIT in SODIUM CHLORIDE 0.9% 1,000 ML IRRIGATION ONE ×2 (11:02→15:30)
[2024-10-13] MEDS: HEPARIN SODIUM,PORCINE 10,000 UNIT in SODIUM CHLORIDE 0.9% 1,000 ML IRRIGATION ONE ×2 (11:02→20:45)
[2024-10-13] MEDS: LIDOCAINE 2% URO-JET JELLY 5 ML KIT URETHRAL ONE (11:03)
[2024-10-13] MEDS: LIDOCAINE 1% INJ 10MG/ML (20 ML MDV) SQ ONE ×3 (11:25→20:36)
[2024-10-13] MEDS: HEPARIN SOD,PORK IN 0.45% NACL 25,000 UNIT in 0.45% NACL 1 250ML.BAG IV ONE (11:40)
[2024-10-13] MEDS: LACTATED RINGERS 1,000 ML IV ONE (16:42)
[2024-10-13] MEDS: IOPAMIDOL-370 100ML BTL INJ ONE ×2 (17:18→21:04)
--- NOTE | 2024-10-13 17:23 | P.HPCAR ---
History of Present Illness This is Dr. Escudero dictating an H/P on this patient The patient was interviewed and examined IMPRESSION / ASSESSMENT: Sustained monomorphic VT Ischemic cardiomyopathy ejection fraction 40% with inferior and anterior apical scar. Akinetic apex Status post stenting Dual-chamber ICD PLAN: EP study and ablation for VT IV heparin dose calculated Reprogram single-chamber ICD HPI Patient has had sustained monomorphic VT. Currently and is on amiodarone and mexiletine Continues to complain of dizzy spells No chest pain ROS: No fever chills or rigors, no cough, phlegm or expectoration, no nausea, vomiting or diarrhea, no hematuria, dysuria, no musculoskeletal complaints, no strokes or seizures, no skin lesions. EXAMINATION: Blood pressure 130/63 mmHg afebrile Pulse rate in the 70s Heart sounds are normal and regular Breath sounds are clear Abdomen soft nontender No lower extremity edema No JVD REVIEW OF LABS, ECG & MEDICAL DATA Medications include lisinopril Aldactone Effient Lipitor carvedilol aspirin mexiletine amiodarone and allopurinol He has a [employer] single-chamber ICD Physical Exam Vitals: Vital Signs Temp Pulse Resp BP BP Pulse Ox 10/13/24 09:39 98.1 F 74 16 171/77 130/63 98 Intake and Output 10/13/24 10/13/24 10/13/24 06:59 14:59 22:59 Intake Total 2011 920 Output Total 1250 Balance 2011 - Intake: IV 2011 920 Output: Urine 1250 Other: Weight 117.9 kg Past Medical History Past Medical History: Atrial Fibrillation, Coronary Artery Disease (CAD), Chest Pain / Angina, Hyperlipidemia, Hypertension, Myocardial Infarction ([place]) Additional Past Medical History / Comment(s): V. tach; ischemic cardiomyopathy; gout-see Dr. Escudero's H&P. Fx. neck in 1989 Last Myocardial Infarction Date:: 07/10/2024 History of Any Multi-Drug Resistant Organisms: None Reported Past Surgical History: AICD, Heart Catheterization With Stent Additional Past Surgical History / Comment(s): Has had a total of 3 cardiac stents , STOMACH RUPTURE REPAIR, ORIF RT ANKLE, Past Anesthesia/Blood Transfusion Reactions: No Reported Reaction Date of Last Stent Placement:: 07/10/2024 Type of Cardiac Device: AICD Device Placement Date:: 07/29/24 Smoking Status: Current every day smoker - Past Family History Mother Family Medical History: Coronary Artery Disease (CAD), Myocardial Infarction ([place]) Additional Family Medical History / Comment(s): from myocardial infarction Father Family Medical History: Coronary Artery Disease (CAD), Myocardial Infarction ([place]) Additional Family Medical History / Comment(s): from myocardial infarction at 57 years old Brother(s) Family Medical History: Coronary Artery Disease (CAD), Myocardial Infarction ([place]) Additional Family Medical History / Comment(s): from myocardial infarction at 57 years old Sister(s) Family Medical History: Coronary Artery Disease (CAD) Physical Examination Vital Signs Temp Pulse Resp BP BP Pulse Ox 10/13/24 09:39 98.1 F 74 16 171/77 130/63 98 Intake and Output 10/13/24 10/13/24 10/13/24 06:59 14:59 22:59 Intake Total 2011 920 Output Total 1250 Balance 2011 Intake: IV 2011 920 Output: Urine 1250 Other: Weight 117.9 kg Results Current Medications Generic Name Dose Route Start Last Admin Trade Name Freq PRN Reason Stop Dose Admin Sodium Chloride 1,000 mls @ 20 mls/hr 10/13/24 06:00 Saline 0.9% IV 11/12/24 05:59 .Q24H FABY Intake and Output 10/13/24 10/13/24 10/13/24 06:59 14:59 22:59 Intake Total 2011 920 Output Total 1250 Balance 2011 Intake: IV 2011 920 Output: Urine 1250 Other: Weight 117.9 kg Patient Weight 10/14/24 06:59 Weight 117.9 kg
--- NOTE | 2024-10-13 17:51 | P.EPPROC ---
- EP Procedure Note Electrophysiology Procedure Note: Indication for procedure: Recurrent sustained monomorphic VT refractory to therapy Final diagnosis Ischemic cardiomyopathy with a large inferior apical scar extending into the septal area Status post VT ablation with scar homogenization Extensive area of ablation, Eliquis for 1 month post ablation Details Patient was brought to the EP lab in a fasting state. Written informed consent was obtained prior to the procedure. Venous sheaths were placed in the right and left femoral veins. Right femoral artery access obtained Diagnostic catheters placed in the right heart. Intracardiac echo catheter placed 3D anatomic mapping performed. Scar identified and delineated on intracardiac echo. Patient fully heparinized The Penta ray catheter was placed in the aorta. However this was a very tortuous aorta and the Penta ray catheter would not go past the aortic valve on account of the tortuosity of the aorta. The aortic valve opens well on intracardiac echo. Therefore a long sheath was placed in the aorta but even with this the Penta ray catheter could not pass through into the left ventricle Therefore a transseptal approach was then employed Under intracardiac echo guidance, the regular sheath was placed in the left atrium. This was then exchanged for a VISIGO sheath. A Penta ray catheter was then placed via this in the left atrium and using a pigtail shape crossed into ventricle via the mitral valve. Mapping with the Penta ray catheter was very difficult and long. The patient had an extensive scar in the inferior wall extending up to the apex The ventricle was also very irritable and slow VT with constantly be induced with the slightest movement. There was scar map was obtained during multiple episodes of VT because he had very few beats of sinus rhythm on account of irritability produced by the Penta ray catheter. However a very detailed scar map was performed RF ablation catheter was then placed in the left ventricle, via the transseptal approach Scar homogenization was performed successfully. VT was induced at multiple locations and it was terminated as the ablation in the region was complete Multiple SMI were ablated/transected from the base of the LV to the apex At the end of the procedure all catheters were removed hemostasis was assured heparin was reversed ICD was reinterrogated and reprogrammed This was a very long procedure on account of difficulties with mapping of the scar area on account of the size of the ventricle and the cardiac rotation as well as the irritability of the ventricle during the mapping procedure In addition the retrograde aortic approach was not successful on account of this tortuosity of the aorta Antegrade transseptal approach was successful
[2024-10-13] MEDS: ACETAMINOPHEN IV (For NPO) 1,000 MG in EMPTY BAG 1 BAG IVPB STA (18:15)
[2024-10-13] MEDS: ATROPINE SULFATE 0.1 MG/ML 10ML SYRINGE IV STA (20:07)
[2024-10-13] MEDS: IV FLUID CONTINUATION 600 ML IV ONE (20:24)
[2024-10-13] MEDS: HYDROmorphone 0.5 MG/0.5 ML SYRINGE IVP ONE ×2 (20:32→20:47)
[2024-10-13] MEDS ORDERED: NALOXONE 0.4 MG/ML 1 ML VIAL IVP PRN (20:57)
[2024-10-13] MEDS ORDERED: APIXABAN 2.5 MG TABLET PO SCH (21:00)
[2024-10-13] MEDS: HYDROmorphone 1 MG/ML 1 ML SYRINGE IVP ONE (21:01)
--- NOTE | 2024-10-13 21:04 | P.PCN ---
Date of Procedure: 10/13/24 Operative Findings: Bilateral common femoral arteries angiogram Performing physician Stanton Figueroa M.D. Procedure performed Selective bilateral common femoral arteries angiogram Indication The patient is a 69-year-old gentleman who underwent earlier today and EP procedure complicated bybleeding from the right common femoral artery because it was fairly calcified. He was brought for an angiogram and possible placing a covered stent and hemostasis of the right common femoral artery Approach Left common femoral artery Complication None Level of sedation Moderate to sedation length of 17 minutes Procedure discussion After obtaining an informed consent the patient was brought to the cardiac laborer beam house in the left common femoral artery was cannulated using micropuncture technique under ultrasound guidance a micropuncture wire passed easily then I placed a 7-Thai 70 cm sheath and left common femoral artery under fluoroscopy guidance using an 035 stiff Glidewire. After that I did go up and over to the proximal right common femoral artery using the 7-Thai sheath and using the 5- Thai rim catheter as a dilator. Subsequently selective right common femoral artery angiogram was performed and showed no evidence of extravasation or active bleeding. Subsequently the sheath was pulled into the left side using a dilator and we did selective left common femoral artery angiogram which showed an area of diseased left common femoral artery and with that we decided to do a manual pullback of the sheath and holding pressure. The procedure was completed there is no complication Conclusion No evidence of any extravasation of bleeding was noted at the right common femoral artery Postprocedure management Manual pullback of the sheath from the left common femoral artery Place. At the right common femoral artery
[2024-10-13] MEDS: ATORVASTATIN 80 MG TAB PO SCH (22:13)
[2024-10-13] MEDS: carvediloL 6.25 MG TAB PO SCH (22:13)
[2024-10-13] MEDS: SODIUM CHLORIDE 0.9% 1,000 ML in EMPTY BAG 1 BAG IV SCH (22:21)
[2024-10-13] MEDS: MEXILETINE 150 MG CAP PO SCH (23:41)
[2024-10-14] MEDS: HYDROmorphone 2 MG/ML 1 ML SYRINGE IVP PRN (02:20)
--- NOTE | 2024-10-14 07:38 | IR ---
EXAMINATION TYPE: IR angio extremity RT DATE OF EXAM: 10/13/2024 FLUOROSCOPY Procedure fluoroscopy during right lower extremity arterial injection. 53 images are provided. Hemato ma right groin intervention. Total DAP: 88.3 Gycm2. Total fluoroscopy time 4.2 minutes. [facility], Workstation: [facility]ENTERKakoonaMARIALUISA, 10/14/2024 7:36 AM
[2024-10-14] MEDS: AMIODARONE 200 MG TAB PO SCH (08:56)
[2024-10-14] MEDS: APIXABAN 5 MG TAB PO SCH (08:56)
[2024-10-14] MEDS: SPIRONOLACTONE 25 MG TAB PO SCH (08:56)
[2024-10-14] MEDS ORDERED: ASPIRIN 81 MG PO SCH (09:00)
[2024-10-14] MEDS ORDERED: APIXABAN 5 MG TAB PO SCH (09:00)
[2024-10-14] MEDS: PRASUGREL 10 MG TAB PO SCH (09:52)
[2024-10-14] MEDS: ACETAMINOPHEN TAB 325 MG TAB PO PRN (09:52)
[2024-10-15] MEDS: AMIODARONE 100 MG TAB PO SCH (08:49)
[2024-10-15 09:07] VITALS: BP 109/68; PULSE 77; RESP 16; TEMP 97.8
--- NOTE | 2024-10-15 09:44 | P.PN ---
Progress Note - Text Patient evaluated on the morning of 14 October. He had an EP study and VT ablation yesterday. He is sitting in a chair comfortably. Denies any chest discomfort, mild sore mass of the groin No dizziness no lightheadedness blood pressure is normal Heart sounds are normal and regular Breath sounds are clear Telemetry shows sinus mechanism with a prolonged CT interval No VT Impression Sustained monomorphic VT Ischemic cardiomyopathy inferior wall MO extending into the apex and anteriorly Large area of scar This was mapped and scar visualized with RF ablation. Multiple stem I noted. Very irritable LV during mapping with runs of nonsustained VT that would immediately result in a drop in blood pressure Phenylephrine was not able to maintain pressure Ephedrine was given in this helped maintain better pressure although he would drop his pressure with very short brief runs of nonsustained VT which was slow Successful RF ablation performed and at the end of the procedure, mechanical stimulation of the inferior wall and the apex did not result in any further VT The retrograde approach was unsuccessful on account of her very large and tortuous aorta that precluded easy access across the aortic valve. Therefore a transseptal approach was adopted across the mitral valve for mapping and ablation Very calcified aorta and femoral artery, Perclose was unsuccessful. Angio-Seal was avoided since the puncture site was just above the bifurcation to the profunda Manual compression was held for a prolonged period of time over 1.[address] Figueroa performed a femoral angiogram which confirmed absence of any further bleeding FemoStop was applied for the next 4 hours The groin is very bruised, swollen but there is no large tender hematoma Plan Reduce amiodarone, start Eliquis, hold aspirin, continue Effient Continue mexiletine Continue heart failure medications Observe for 24 hours more to make sure that his right femoral artery and right groin are progressing well and healing well Anticipate likely discharge tomorrow if there are no further groin issues
--- NOTE | 2024-10-15 09:55 | P.DS ---
Providers Attending physician: Malvin Escudero Primary care physician: [facility] Course: Patient is doing very well He is sitting up in the chair. He has been ambulating around in the room He denies any chest discomfort dizziness lightheadedness shortness of breath Minimal discomfort in the groins While he is right groin is considerably bruised and there is swelling, the swelling is diffuse and there is no expanding hematoma since the bleeding stopped on the 15th evening but it required holding pressure for at least 1.5 hours. Absence of any bleeding or leak in the femoral artery was confirmed with an angiogram by Dr. Figueroa Yesterday started him on Eliquis, held aspirin continued prasugrel and reduce the dose of amiodarone On telemetry he has maintained sinus rhythm with a prolonged PA interval No sustained or nonsustained VT Heart sounds are normal Breath sounds are clear No JVD Mild tenderness in both groins Swelling especially so in the right groin with extensive bruising Impression Recurrent monomorphic VT originating from the inferior apical wall Extensive scar of the inferior wall extending to the anterior apex, ischemic cardiomyopathy status post single-chamber ICD Status post scar coumadinization with extensive ablation of multiple isthimi within the scar Ablation performed via transseptal route Very calcified aorta and femoral artery Femoral artery bleeding continued despite pressure of over 1 hour but finally we were able to control it. This is most likely on account of the calcification. The Perclose stitch did not hold on the wall of the femoral artery. The calcification is visible even on fluoroscopy. We avoided the Angio-Seal because of the proximity of the puncture site to the bifurcation at the level of the profunda. Plan Eliquis 5 mg twice daily for 1 month post extensive VT ablation on the inferior wall Stop after 1 month Continue prasugrel uninterrupted As long as patient is on Eliquis, aspirin is on hold After 1 month he will go back to dual antiplatelet therapy with aspirin and prasugrel Amiodarone 100 mg p.o. daily, reduced dose Mexiletine 150 mg every 8 hours for 2 months and then stop Continue other heart failure medications unchanged Avoid any procedure that will require temporarily holding anticoagulation antiplatelet therapy at this time Patient is awaiting dental extraction. If possible this should be done without holding anticoagulation Antibiotic coverage suggested for that patient will be discharged home today and he will follow-up with Dr. Prieto on 02 November as previously scheduled Plan - Discharge Summary Discharge Rx Participant: No New Discharge Prescriptions: New Apixaban [Eliquis] 5 mg PO BID #60 tab Amiodarone [Cordarone] 100 mg PO DAILY #90 tab Discontinued Amiodarone [Cordarone] 200 mg PO DAILY #90 tab No Action allopurinoL [Zyloprim] 100 mg PO DAILY PRN PRN Reason: GOUT FLARE Atorvastatin [Lipitor] 80 mg PO HS #30 tab lisinopriL [Zestril] 2.5 mg PO HS #30 tab Spironolactone [Aldactone] 25 mg PO DAILY Prasugrel [Effient] 10 mg PO DAILY #30 tab Aspirin EC [Ecotrin Low Dose] 81 mg PO DAILY #30 tab Mexiletine [Mexitil] 150 mg PO Q8HR #90 capsule carvediloL [Coreg] 6.25 mg PO BID #180 tablet Discharge Medication List Spironolactone [Aldactone] 25 mg PO DAILY 07/10/24 [History] allopurinoL [Zyloprim] 100 mg PO DAILY PRN 07/10/24 [History] Aspirin EC [Ecotrin Low Dose] 81 mg PO DAILY #30 tab 07/12/24 [Rx] Atorvastatin [Lipitor] 80 mg PO HS #30 tab 07/12/24 [Rx] Prasugrel [Effient] 10 mg PO DAILY #30 tab 07/12/24 [Rx] Mexiletine [Mexitil] 150 mg PO Q8HR #90 capsule 07/17/24 [Rx] lisinopriL [Zestril] 2.5 mg PO HS #30 tab 07/17/24 [Rx] carvediloL [Coreg] 6.25 mg PO BID #180 tablet 07/30/24 [Rx] Apixaban [Eliquis] 5 mg PO BID #60 tab 10/13/24 [Rx] Amiodarone [Cordarone] 100 mg PO DAILY #90 tab 10/15/24 [Rx] Follow up Appointment(s)/Referral(s): Malvin Escudero MD [STAFF PHYSICIAN] - As Needed (Follow-up with Dr. Patel in 1 week) Activity/Diet/Wound Care/Special Instructions: Post EP study - Ablation instructions 1. Keep access sites dry for 2 days. 2. No heavy lifting or straining for 2 days. 3. Avoid bending the hips repeatedly for 2 days. 4. You may go up and down stairs slowly 5. If you have had an ablation for atrial fibrillation or atrial flutter and are on a blood thinner, do not stop the blood thinner even temporarily for 3 months post ablation Call if the following is noted 1. Bleeding, increasing swelling or pain at the access sites. 2. Increasing chest discomfort, especially upon taking a deep breath. 3. Increasing shortness of breath, at rest or with exertion. 4. Undue cough / phlegm 5. Difficulty or pain while swallowing. 6. Pain or change in color in the extremities. 7. Fever, chills, rigors. 8. Increasing headache or neurologic symptoms. 9. Dizziness, fainting, palpitations Patient underwent VT ablation with scar homogenization. Extensive ablation performed along the inferior wall and apex of the left ventricle Post VT ablation Eliquis 5 mg twice daily for 1 month only Continue Effient uninterrupted Hold aspirin for 1 month After 1 month stop Eliquis and resume aspirin Amiodarone 100 mg p.o. daily Mexiletine 150 mg every 8 hourly for 8 weeks, then stop Discharge Disposition: HOME SELF-CARE
--- NOTE | 2024-10-15 10:07 | P.EPPROC ---
- EP Procedure Note Electrophysiology Procedure Note: Addendum to EP study VT ablation procedure Continuous invasive hemodynamic monitoring via right femoral artery performed. The patient would have significant drops in blood pressure down to 60-70 mmHg with even slow nonsustained VT that was induced during the procedure. This was treated with phenylephrine unsuccessfully. How ephedrine resulted in blunting of this response although his blood pressure was still drop. Therefore when the Penta ray catheter was used for mapping, this involved very slow gentle movements that resulted in considerable time duration, to minimize ventricular ectopy from the inferior wall and inferior apex of the LV. This is a very long procedure for the following reasons 1. Retrograde approach to access the left ventricle across the aortic valve was repeatedly unsuccessful. The Penta ray catheter would not cross and was simply loop in the very large ascending aorta. This was even more difficult on account of a very tortuous aorta that prevented transmission of the torque and distal catheter movements to achieve the desired movement. A long sheath was placed in the aorta up to the ascending aorta but even this did not result in adequate stability and the Penta ray catheter could not cross the aortic valve. Therefore a transseptal approach with access into the left ventricle, across the mitral valve was performed successfully 2. Femoral artery descending aorta and ascending aorta heavily calcified. When the femoral artery catheter was removed to the end of the procedure, Perclose stitch did not retained within the wall of the femoral artery. The puncture site was just above the bifurcation of the profunda and therefore Angio-Seal was not applied. It took over 1.5 hours of compression to seal the artery successfully. This was confirmed with a femoral artery angiogram later, that the bleeding had stopped 3. The device was interrogated prior to the procedure and once again at the end of the procedure. 3 zones of therapy were programmed in at the end of the procedure the detection zone for the fast VT zone was reprogrammed to 214 bpm Appropriate antitachycardia pacing cardioversions or defibrillation's were programmed but all at maximum output 4. Left Ventricular pacing to evaluate for noncapture along areas of scar, to identify in excitable scar areas, since most of the scar mapping was performed during episodes of nonsustained VT. Penta ray catheter movements resulted in such significant frequency of ventricular ectopy that we could not get a sufficiently dense map with sinus beat mapping. Therefore voltage mapping was supplemented with an excitable scar mapping with left ventricular pacing. 5. Despite very gradual slow and gentle movements of the PentaRay catheter, nonsustained monomorphic VT was induced with mechanical movement of the Penta ray catheter. Even short slow episodes of VT were associated with a significant drop in blood pressure. Therefore mapping was performed very slowly with very slow gradual movements of the PentaRay catheter. The left ventricle was enlarged along with cardiac rotation. This contributed significantly to the length of this procedure which lasted for greater than 5-6 hours, total.
== END 2024-10-15 10:37 | disposition home or self-care (01) ==
LOC: CATHEP 09:16 → 6NMEDSUR 17:04 → 3SCARD 20:52 → CATHEP 10-15 10:37
PROVIDERS: ATTEND Internal Medicine Clinical Cardiac Electrophysiology
DX: I47.20 Ventricular tachycardia, unspecified (principal); I25.10 Atherosclerotic heart disease of native coronary artery without angina pectoris; I48.91 Unspecified atrial fibrillation; I25.5 Ischemic cardiomyopathy; I70.0 Atherosclerosis of aorta; I49.3 Ventricular premature depolarization; I25.2 Old myocardial infarction; I50.89 Other heart failure; I11.0 Hypertensive heart disease with heart failure; E78.5 Hyperlipidemia, unspecified; F17.210 Nicotine dependence, cigarettes, uncomplicated; R58 Hemorrhage, not elsewhere classified; Z95.5 Presence of coronary angioplasty implant and graft; Z95.810 Presence of automatic (implantable) cardiac defibrillator; Z79.02 Long term (current) use of antithrombotics/antiplatelets; Z79.82 Long term (current) use of aspirin; Z79.899 Other long term (current) drug therapy
CPT/HCPCS: 36215; 75710; 93462; 93662; 93654; 86900; 86901; 86850; 99152; C1894 ×2; C1769 ×4; C1766; C1760; C1730 ×2; C1731; C1759; C1893; C1732; J1171 ×3; J1644 ×3; J0690; J2003; J0461; J0131; Q9967

== ENCOUNTER 2024-10-18 15:29 | Emergency (ER) | payer MEDICARE ==
--- NOTE | 2024-10-18 17:31 | ED ---
General Adult HPI - General Chief complaint: Extremity Problem,Nontraumatic Stated complaint: swollen testicles post surgery Time Seen by Provider: 10/18/24 15:40 Source: patient, RN notes reviewed Mode of arrival: ambulatory Limitations: no limitations - History of Present Illness Initial comments: 69-year-old male presents to the emergency department for evaluation of scrotal swelling and bruising following a cardiac ablation. Patient states that he had an ablation done on . He notes that following this he had significant bruising on both of his lower extremities and into the scrotum. He does note that the scrotum has been swollen since he has been discharged. He states that it made him nervous today and this prompted his evaluation in the emergency department. He denies any fever, chills. Denies any numbness or tingling of the lower extremities. Denies any significant testicular pain. - Related Data Home Medications Medication Instructions Recorded Confirmed Spironolactone [Aldactone] 25 mg PO DAILY 07/10/24 10/13/24 allopurinoL [Zyloprim] 100 mg PO DAILY PRN 07/10/24 10/09/24 Previous Rx's Medication Instructions Recorded Aspirin EC [Ecotrin Low Dose] 81 mg PO DAILY #30 tab 07/12/24 Atorvastatin [Lipitor] 80 mg PO HS #30 tab 07/12/24 Prasugrel [Effient] 10 mg PO DAILY #30 tab 07/12/24 Mexiletine [Mexitil] 150 mg PO Q8HR #90 capsule 07/17/24 lisinopriL [Zestril] 2.5 mg PO HS #30 tab 07/17/24 carvediloL [Coreg] 6.25 mg PO BID #180 tablet 07/30/24 Apixaban [Eliquis] 5 mg PO BID #60 tab 10/13/24 Amiodarone [Cordarone] 100 mg PO DAILY #90 tab 10/15/24 Allergies Allergy/AdvReac Type Severity Reaction Status Date / Time No Known Allergies Allergy Verified 10/18/24 15:33 Review of Systems ROS Statement: Those systems with pertinent positive or pertinent negative responses have been documented in the HPI. ROS Other: All systems not noted in ROS Statement are negative. Past Medical History Past Medical History: Coronary Artery Disease (CAD), Chest Pain / Angina, Hyperlipidemia, Hypertension, Myocardial Infarction (SC) Additional Past Medical History / Comment(s): V. tach; ischemic cardiomyopathy; gout-see Dr. Escudero's H&P. Fx. neck in 1989 Last Myocardial Infarction Date:: 07/10/2024 History of Any Multi-Drug Resistant Organisms: None Reported Past Surgical History: Heart Catheterization With Stent Additional Past Surgical History / Comment(s): Has had a total of 3 cardiac stents Past Anesthesia/Blood Transfusion Reactions: No Reported Reaction Date of Last Stent Placement:: 07/10/2024 Past Psychological History: No Psychological Hx Reported Smoking Status: Current every day smoker Past Alcohol Use History: Heavy Past Drug Use History: None Reported - Past Family History Mother Family Medical History: Coronary Artery Disease (CAD), Myocardial Infarction (SC) Additional Family Medical History / Comment(s): from myocardial infarction Father Family Medical History: Coronary Artery Disease (CAD), Myocardial Infarction (SC) Additional Family Medical History / Comment(s): from myocardial infarction at 57 years old Brother(s) Family Medical History: Coronary Artery Disease (CAD), Myocardial Infarction (SC) Additional Family Medical History / Comment(s): from myocardial infarction at 57 years old Sister(s) Family Medical History: Coronary Artery Disease (CAD) General Exam Limitations: no limitations General appearance: alert, in no apparent distress Head exam: Present: atraumatic, normocephalic, normal inspection Eye exam: Present: normal appearance, PERRL, EOMI. Absent: scleral icterus, conjunctival injection, periorbital swelling ENT exam: Present: normal exam, mucous membranes moist Neck exam: Present: normal inspection. Absent: tenderness, meningismus, lymphadenopathy Respiratory exam: Present: normal lung sounds bilaterally. Absent: respiratory distress, wheezes, rales, rhonchi, stridor Cardiovascular Exam: Present: regular rate, normal rhythm, normal heart sounds. Absent: systolic murmur, diastolic murmur, rubs, gallop, clicks GI/Abdominal exam: Present: soft, normal bowel sounds. Absent: distended, tenderness, guarding, rebound, rigid exam: Present: scrotal swelling, other (Ecchymosis to the scrotum). Absent: testicular tenderness Extremities exam: Present: normal inspection, full ROM, normal capillary refill. Absent: tenderness, pedal edema, joint swelling, calf tenderness Back exam: Present: normal inspection Neurological exam: Present: alert, oriented X3 Psychiatric exam: Present: normal affect, normal mood Skin exam: Present: warm, dry, intact, other (DP and PT pulses 2+ bilaterally, ecchymosis throughout the proximal bilateral lower extremities and into the scrotum). Absent: normal color Course Vital Signs 10/18/24 10/18/24 15:31 17:53 Temperature 97.9 F 98.7 F Pulse Rate 72 62 Respiratory 18 16 Rate Blood Pressure 120/65 127/55 O2 Sat by Pulse 96 100 Oximetry Medical Decision Making - Medical Decision Making Was pt. sent in by a medical professional or institution (, [facility], [facility]IC [employer]ALOGUER, urgent care, hospital, or jail...) When possible be specific @ -No Did you speak to anyone other than the patient for history (EMS, parent, family, police, friend...)? What history was obtained from this source @ -No Did you review nursing and triage notes (agree or disagree)? Why? @ -I reviewed and agree with nursing and triage notes Were old charts reviewed (outside hosp., previous admission, EMS record, old EKG, old radiological studies, urgent care reports/EKG's, jail records)? Report findings @ -No old charts were reviewed Differential Diagnosis (chest pain, altered mental status, abdominal pain women, abdominal pain men, vaginal bleeding, weakness, fever, dyspnea, syncope, headache, dizziness, GI bleed, back pain, seizure, CVA, palpatations, mental health, musculoskeletal)? @ -Scrotal edema, varicoceles, hydroceles, testicular torsion, this this is not all-inclusive EKG interpreted by me (3pts min.). @ -None X-rays interpreted by me (1pt min.). @ -None done CT interpreted by me (1pt min.). @ -None done U/S interpreted by me (1pt. min.). @ -None done What testing was considered but not performed or refused? (CT, X-rays, U/S, labs)? Why? @ -None What meds were considered but not given or refused? Why? @ -None Did you discuss the management of the patient with other professionals (professionals i.e. , [facility], [employer]IC CATALOGUER, lab, RT, psych nurse, psychiatric social worker, reverse unit operator fisherman, teacher, senior loan officer, child welfare caseworker)? Give summary @ -No Was smoking cessation discussed for >3mins.? @ -No Was critical care preformed (if so, how long)? @ -No Were there social determinants of health that impacted care today? How? (Homelessness, low income, unemployed, alcoholism, drug addiction, transportation, low edu. Level, literacy, decrease access to med. care, skilled nursing, rehab)? @ -No Was there de-escalation of care discussed even if they declined (Discuss DNR or withdrawal of care, Hospice)? DNR status @ -No What co-morbidities impacted this encounter? (DM, HTN, Smoking, COPD, CAD, Cancer, CVA, ARF, Chemo, Hep., AIDS, mental health diagnosis, sleep apnea, morbid obesity)? @ -None Was patient admitted / discharged? Hospital course, mention meds given and route, prescriptions, significant lab abnormalities, going to OR and other pertinent info. @ -Discharge. Patient presented emergency department for evaluation of scrotal swelling and bruising following an ablation. Patient distally neurovascularly intact. He does not have any significant testicular pain. He has an appointment to follow-up tomorrow with his data management consultant. The case was discussed with Dr. Rand who also evaluated the patient. Patient wishes to be discharged home. He is understanding agreeable with discharge plan and follow- up. Undiagnosed new problem with uncertain prognosis? @ -No Drug Therapy requiring intensive monitoring for toxicity (Heparin, Nitro, Insulin, Cardizem)? @ -No Were any procedures done? @ -No Diagnosis/symptom? @ -Scrotal swelling Acute, or Chronic, or Acute on Chronic? @ -Acute Uncomplicated (without systemic symptoms) or Complicated (systemic symptoms)? @ -Uncomplicated Side effects of treatment? @ -No Exacerbation, Progression, or Severe Exacerbation? @ -No Poses a threat to life or bodily function? How? (Chest pain, USA, SC, pneumonia, PE, COPD, DKA, ARF, appy, cholecystitis, CVA, Diverticulitis, Homicidal, Suicidal, threat to staff... and all critical care pts) @ -No Disposition Clinical Impression: Post-operative pain Disposition: HOME SELF-CARE Condition: Stable Instructions (If sedation given, give patient instructions): Scrotal Pain (ED), Cardiac Ablation (DC) Additional Instructions: Please follow-up with your data management consultant tomorrow as scheduled. Return to the emergency department for new or worsening symptoms. Is patient prescribed a controlled substance at d/c from ED?: No Referrals: Silvia Jacobs MD [Primary Care Provider] - 1-2 days
[2024-10-18 17:56] VITALS: BP 127/55; PULSE 62; RESP 16; TEMP 98.7
== END 2024-10-18 17:59 | disposition home or self-care (01) ==
LOC: EC 15:29
DX: G89.18 Other acute postprocedural pain (principal); F17.200 Nicotine dependence, unspecified, uncomplicated
CPT/HCPCS: 99283